=== PATIENT | female | born 1990 | race Caucasian/White ===

== ENCOUNTER → 2016-10-17 | Outpatient (CLI) | payer BC ==
[~2016-10-17] MED LIST: CITA40TA4 PO; FLUO10CA48 PO; IBUP-1050 PO; LAMO1TAB77 PO; LEVOIUD INT UTER; NAPR-1169 PO
== END | disposition home or self-care (01) ==
LOC: C.PAPS 17:41
PROVIDERS: ATTEND Physician Assistant
DX: Z01.411 Encounter for gynecological examination (general) (routine) with abnormal findings (principal); R87.616 Satisfactory cervical smear but lacking transformation zone

== ENCOUNTER → 2017-09-18 | Outpatient (CLI) | payer BC ==
[~2017-09-18] MED LIST changes: +LEVO1IUD2 INT UTER; -LEVOIUD INT UTER
--- NOTE | 2017-09-18 08:35 | DIAGNOSTIC IMAGING REPORT ---
SINGLE CONTRAST UPPER GI SERIES CLINICAL HISTORY: Status post sleeve gastrectomy. COMPARISON STUDY: None. FLUOROSCOPY TIME: 1.6 minutes. TECHNIQUE: A single contrast upper GI series was performed utilizing REES46. 23 fluoroscopic images were obtained. FINDINGS: Esophageal motility was normal. No esophageal mass or stricture was identified although mucosal detail is diminished. There is expected narrowing and irregularity of the stomach status post sleeve gastrectomy. No contrast extravasation is identified to suggest leak. Caliber of the opacified jejunum is normal. IMPRESSION: No contrast extravasation to suggest leak. Expected postoperative findings status post sleeve gastrectomy. Electronically signed by: Jonel Lacey M.D. 09/18/2017 8:33 AM Dictated Date/Time: 09/18/2017 8:31 AM
== END | disposition home or self-care (01) ==
LOC: C.RAD 07:50
PROVIDERS: ATTEND Surgery
DX: K91.1 Postgastric surgery syndromes (principal)

== ENCOUNTER 2017-10-20 19:27 | Emergency (ER) | payer BC ==
[~2017-10-20] VITALS: Ht 172.7 cm; Wt 122.7 kg
[2017-10-20 19:29] VITALS: TEMP 36.9; Ht 172.7 cm; Wt 122.7 kg
[2017-10-20 19:43] VITALS: O2SAT 99
[2017-10-20] MEDS ORDERED: SODIUM CHLORIDE 0.9% 1000ML 1,000 ML IV STA (19:58)
[2017-10-20] MEDS ORDERED: FAMOTIDINE 20MG/5ML IV PUSH IV STA (19:58)
[2017-10-20] MEDS ORDERED: ONDANSETRON INJ 2 MG/ML 2 ML VIAL IV STA (19:58)
[2017-10-20 20:07] LABS: BASO % 0.3 %; BASO ABS # 0.03 K/uL (0-0.2); EOS % 0.7 %; EOS ABS # 0.07 K/uL (0-0.5); HEMATOCRIT 42.2 % (37-47); IG# 0.01 K/uL (0.00-0.02); LYMPH % 38.3 %; LYMPH ABS # 3.75 K/uL (1.2-3.4); MEAN CELL VOLUME 88.5 fL (80-100); MEAN CORPUSCULAR HEMOGLOBIN 29.4 pg (25-34); MEAN CORPUSCULAR HGB CONC 33.2 g/dl (32-36); MONO ABS # 0.59 K/uL (0.11-0.59); NEUT % 54.6 %; NEUT ABS # 5.33 K/uL (1.4-6.5); PLATELET COUNT 291 K/uL (130-400); RED CELL DISTRIBUTION WIDTH CV 15.5 % (11.5-14.5); RED CELL DISTRIBUTION WIDTH SD 50.2 fL (36.4-46.3); WHITE BLOOD COUNT 9.78 K/uL (4.8-10.8)
[2017-10-20 20:17] LABS: ALBUMIN 3.7 gm/dl (3.4-5.0); CALCIUM 9.1 mg/dl (8.5-10.1); CREATININE 0.72 mg/dl (0.60-1.20); POTASSIUM 3.5 mmol/L (3.5-5.1)
[2017-10-20 20:20] LABS: TOTAL PROTEIN 7.6 gm/dl (6.4-8.2)
--- NOTE | 2017-10-20 20:41 | EMERGENCY ROOM VISIT NOTE ---
History Report prepared by Hannah: Edilberto Nicholas Under the Supervision of: Dr. Cas Kinney M.D. First contact with patient: 19:48 Chief Complaint: CHEST PAIN Stated Complaint: ABDOMINAL PAIN,DIZZINESS,CHEST PAIN,TREMORS History of Present Illness The patient is a 27 year old female who presents to the Emergency Room with complaints of intermittent, severe, epigastric burning beginning 2 days ago. She currently rates her symptoms a 5/10 and a 10/10 at its worst. The patient states she had a gastric bypass performed 6 weeks ago, and she has been doing well since she was discharged. She reports she cannot keep anything down because drinking and eating causes her to vomit and her pain to worsen. The patient notes she called her surgeon and was told to come to the ED in [place]. 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 The patient reports she is on omeprazole to help recover. She notes she has not changed her diet since discharge. The patient states she is able to move her bowels. She reports her symptoms stay in her chest/epigastrium and do not radiate to her back. The patient notes she drank a protein drink last night, and she did not vomit. She states she tried to drink the same beverage this morning, and she was not able to keep it down. The patient denies urinary symptoms. Source of History: patient Onset: 2 days ago Position: abdomen (epigastric) Symptom Intensity: severe Quality: burning Timing: intermittent Modifying Factors (Worsening): eating, drinking Associated Symptoms: + vomiting, No back pain, No urinary symptoms Note: Associated symptoms: dripping bile Review of Systems See HPI for pertinent positives & negatives. A total of 10 systems reviewed and were otherwise negative. Past Medical & Surgical Medical Problems: (1) Acute Pharyngitis (2) Back pain (3) Backache Nos (4) Depression (5) Dysuria (6) Gastric ulcer due to nonsteroidal antiinflammatory drug (NSAID) therapy (7) Lumb/Lumbosac Disc Degen (8) Palpitations (9) Shortness Of Breath Family History Diabetes mellitus FH: cancer FH: lung disease Hypertension Social History Smoking Status: Never Smoker Alcohol Use: none Drug Use: none Marital Status: single Housing Status: lives with significant other Occupation Status: employed Current/Historical Medications Scheduled B-Complex W/Biotin & Folic Aci (B50 Complex Tr), 1 TAB PO DAILY Bupropion HCl (Bupropion HCl Sr), 150 MG PO BID Levonorgestrel (Iud) (Mirena), 20 MCG INT UTER UD Omeprazole (Prilosec), 20 MG PO DAILY Pediatric Multiple Vitamin W/ (Flintstones Chewable), 1 TAB PO TID Ranitidine (Zantac), 150 MG PO BID Scheduled PRN Acetaminophen (Tylenol), 500 MG PO UD PRN for Pain or Fever Allergies Coded Allergies: Nickel (Verified Allergy, Unknown, Skin, 10/20/17) Uncoded Allergies: PINEAPPLE (Allergy, Intermediate, Mouth becomes sore and bleeds, hives, ) Physical Exam Vital Signs Date Time Temp Pulse Resp B/P (MAP) Pulse Ox O2 Delivery O2 Flow Rate FiO2 10/20/17 22:20 60 20 128/77 99 10/20/17 21:19 72 16 150/79 100 Room Air 10/20/17 20:38 57 10/20/17 20:31 56 18 117/77 99 Room Air 10/20/17 19:53 62 16 134/84 99 Room Air 10/20/17 19:43 99 Room Air 10/20/17 19:43 99 Room Air 10/20/17 19:29 36.9 94 16 149/107 99 Room Air Physical Exam GENERAL: Patient is in no acute distress. HEENT: No acute trauma, normocephalic atraumatic, mucous membranes moist, no nasal congestion, no scleral icterus. NECK: No stridor, no adenopathy, no meningismus, trachea is midline. LUNGS: Clear to auscultation bilaterally, no wheeze, no rhonchi, breath sounds equal. HEART: Without murmurs gallops or rubs, regular rate and rhythm. ABDOMEN: Soft, tenderness upon palpation to the epigastric region, bowel sounds positive, no hernias, no peritonitis. EXTREMITIES: No cyanosis or edema, full range of motion of all the joints without pain or difficulty, no signs for acute trauma. NEUROLOGIC: Oriented x 3, no acute motor or sensory deficits, no focal weakness. SKIN: No rash, no jaundice, no diaphoresis. Medical Decision & Procedures ER Provider Diagnostic Interpretation: Radiology results as stated below per my review and radiologist interpretation: SINGLE VIEW CHEST CLINICAL HISTORY: Generalized abdominal pain. FINDINGS: An AP, portable, upright chest radiograph is compared to study dated 10/27/2015. The cardiomediastinal silhouette is unremarkable. The lungs and pleural spaces are clear. No pneumothorax is seen. The bony thorax is grossly intact. IMPRESSION: No active disease in the chest. Electronically signed by: Cas Galindo M.D. 10/20/2017 8:48 PM Dictated Date/Time: 10/20/2017 8:[address] SCAN OF THE ABDOMEN AND PELVIS WITH IV CONTRAST CLINICAL HISTORY: Generalized abdominal pain. COMPARISON STUDY: Pelvic radiograph dated 01/11/2012. TECHNIQUE: Following the IV administration of 93 cc of Optiray 320, CT scan of the abdomen and pelvis is performed from the lung bases to the proximal femora. Images are reviewed in the axial, sagittal, and coronal planes. IV contrast was administered without complication. A dose lowering technique was utilized adhering to the principles of ALARA. CT DOSE: 1265.79 mGy.cm FINDINGS: Lung bases: The heart is normal in size and without pericardial effusion. The lung bases are clear. Liver: The contrast-enhanced liver is enlarged, measuring 21 cm in length. The liver demonstrates diminished attenuation consistent with hepatic steatosis. There is mild central intrahepatic biliary ductal dilatation. The hepatic veins and portal veins are patent. Gallbladder: Surgically absent. Spleen: Normal in size and attenuation. Pancreas: Unremarkable. Adrenal glands: Unremarkable. Kidneys: The contrast enhanced kidneys are normal in size and without hydronephrosis. The kidneys enhance symmetrically. Abdominal vasculature: The abdominal aorta is normal in course and caliber. Stomach and bowel: There are postoperative changes consistent with a Emir-en-Y gastric bypass surgery. No bowel obstruction is seen. The appendix is well-visualized and normal. Peritoneum: There is no intraperitoneal free air or abdominal ascites. Lymphadenopathy: None. Pelvic viscera: The bladder, uterus, and adnexa are normal as visualized noting an intrauterine device in place. There are bilateral ovarian follicles. Trace free fluid is noted in the cul-de-sac. Skeletal structures: No lytic or blastic lesions are seen. IMPRESSION: 1. There are no acute infectious or inflammatory findings in the abdomen or pelvis. 2. Hepatomegaly and hepatic steatosis. 3. There are postoperative changes consistent with a Emir-en-Y gastric bypass surgery. No bowel obstruction is seen. 4. Trace free fluid in the cul-de-sac is likely within physiologic limits. Electronically signed by: Cas Galindo M.D. 10/20/2017 9:25 PM Dictated Date/Time: 10/20/2017 9:21 PM Laboratory Results 10/20/17 19:43 Red Blood Count 4.77, Mean Corpuscular Volume 88.5, Mean Corpuscular Hemoglobin 29.4, Mean Corpuscular Hemoglobin Concent 33.2, Mean Platelet Volume 10.0, Neutrophils (%) (Auto) 54.6, Lymphocytes (%) (Auto) 38.3, Monocytes (%) (Auto) 6.0, Eosinophils (%) (Auto) 0.7, Basophils (%) (Auto) 0.3, Neutrophils # (Auto) 5.33, Lymphocytes # (Auto) 3.75, Monocytes # (Auto) 0.59, Eosinophils # (Auto) 0.07, Basophils # (Auto) 0.03 10/20/17 19:43 Test 10/20/17 19:43 10/20/17 19:49 10/20/17 21:21 White Blood Count 9.78 K/uL (4.8-10.8) Red Blood Count 4.77 M/uL (4.2-5.4) Hemoglobin 14.0 g/dL (12.0-16.0) Hematocrit 42.2 % (37-47) Mean Corpuscular Volume 88.5 fL (80-100) Mean Corpuscular Hemoglobin 29.4 pg (25-34) Mean Corpuscular Hemoglobin Concent 33.2 g/dl (32-36) Platelet Count 291 K/uL (130-400) Mean Platelet Volume 10.0 fL (7.4-10.4) Neutrophils (%) (Auto) 54.6 % Lymphocytes (%) (Auto) 38.3 % Monocytes (%) (Auto) 6.0 % Eosinophils (%) (Auto) 0.7 % Basophils (%) (Auto) 0.3 % Neutrophils # (Auto) 5.33 K/uL (1.4-6.5) Lymphocytes # (Auto) 3.75 K/uL (1.2-3.4) Monocytes # (Auto) 0.59 K/uL (0.11-0.59) Eosinophils # (Auto) 0.07 K/uL (0-0.5) Basophils # (Auto) 0.03 K/uL (0-0.2) RDW Standard Deviation 50.2 fL (36.4-46.3) RDW Coefficient of Variation 15.5 % (11.5-14.5) Immature Granulocyte % (Auto) 0.1 % Immature Granulocyte # (Auto) 0.01 K/uL (0.00-0.02) Anion Gap 9.0 mmol/L (3-11) Est Creatinine Clear Calc Drug Dose 159.1 ml/min Estimated GFR () 131.2 Estimated GFR (Non- 113.2 BUN/Creatinine Ratio 17.7 (10-20) Calcium Level 9.1 mg/dl (8.5-10.1) Total Bilirubin 0.3 mg/dl (0.2-1) Aspartate Amino Transf (AST/SGOT) 11 U/L (15-37) Alanine Aminotransferase (ALT/SGPT) 32 U/L (12-78) Alkaline Phosphatase 68 U/L (45-117) Total Protein 7.6 gm/dl (6.4-8.2) Albumin 3.7 gm/dl (3.4-5.0) Globulin 3.9 gm/dl (2.5-4.0) Albumin/Globulin Ratio 0.9 (0.9-2) Lipase 322 U/L (73-393) Human Chorionic Gonadotropin, Qual NEG (NEG) Bedside Troponin I < 0.030 ng/ml (0-0.045) Urine Color DK YELLOW Urine Appearance CLEAR (CLEAR) Urine pH 6.0 (4.5-7.5) Urine Specific [place] > 1.045 (1.000-1.030) Urine Protein NEG (NEG) Urine Glucose (UA) NEG (NEG) Urine Ketones 2+ (NEG) Urine Occult Blood NEG (NEG) Urine Nitrite NEG (NEG) Urine Bilirubin NEG (NEG) Urine Urobilinogen NEG (NEG) Urine Leukocyte Esterase NEG (NEG) Laboratory results reviewed by me. Medications Administered Medications (Trade) Dose Ordered Sig/Soto Route Start Time Stop Time Status Last Admin Dose Admin Ondansetron HCl (Zofran Inj) 4 mg NOW STAT IV 10/20/17 19:58 10/20/17 20:01 DC 10/20/17 20:13 4 MG Sodium Chloride 1,000 ml @ 999 mls/hr Q1H1M STAT IV 10/20/17 19:58 10/20/17 21:03 DC 10/20/17 20:12 999 MLS/HR Famotidine (Pepcid 20mg Iv Push) 20 mg ONE STAT IV 10/20/17 19:58 10/20/17 20:01 DC 10/20/17 20:13 20 MG ECG Per My Interpretation Indication: chest pain Rate (beats per minute): 70 Rhythm: other (possible ectopic atrial rhythm) Findings: other (No PVC, no ST elevation) ED Course 1949: The patient was evaluated in room C07. A complete history and physical exam was performed. 1957: Ordered Famotidine 20mg IV, Sodium Chloride 1000 ml @ 999 mls/hr IV, Ondansetron HCl 4mg IV 2200: I discussed the patient's case with Dr. Morales, Surgeon covering for Dr. Mooney. He suggests the patient's symptoms are likely related to her need to increase her proton pump inhibitor. He recommended giving the patient Zantac. 2208: Reevaluated the patient. Discussed results and discharge instructions: she verbalized understanding and agreement. The patient is ready for discharge. Medical Decision The patient is a 27 year old female who presents to the ED with complaints of severe, intermittent, epigastric burning. Differential diagnoses considered include bowel obstruction, hematoma, gastritis, abscess, infection, electrolyte imbalance, anemia, UTI, pneumonia, pancreatitis. There is no leukocytosis or concerning anemia. No significant electrolyte abnormality, kidney failure or hepatitis. No evidence for pancreatitis. testing is negative. Chest film does not show free air, pneumonia or pneumothorax. Urinalysis shows some evidence for dehydration, no infection. Abdominal and pelvis CT shows evidence for the gastric bypass procedure, no bowel obstruction, no evidence for free air. EKG shows a possible ectopic atrial rhythm, no acute ischemia. Cardiac enzyme testing 1 is not consistent with acute cardiac injury. The patient received IV Zofran, IV Pepcid and IV saline, she is feeling improved , she is resting comfortably. I did speak with the physician on-call for the patient's surgeon at [facility], he recommended doubling up on her Prilosec and may be adding some Zantac or Carafate. The patient is to follow with them in the office and by phone. If she is worsening, she can return to this ER for reassessment. She was felt stable for discharge home. Medication Reconcilliation Current Medication List: was personally reviewed by me Blood Pressure Screening Patient's blood pressure: Normal blood pressure Blood pressure disposition: Did not require urgent referral Consults Time Called: 2151 Consulting Physician: Dr. Morales, Surgeon covering for Dr. Mooney Returned Call: 2200 I discussed the patient's case with Dr. Morales, Surgeon covering for Dr. Mooney. He suggests the patient's symptoms are likely related to her need to increase her proton pump inhibitor. He recommended giving the patient Zantac. Impression Primary Impression: Epigastric abdominal pain Additional Impression: Status post gastric bypass for obesity Scribe Attestation The scribe's documentation has been prepared under my direction and personally reviewed by me in its entirety. I confirm that the note above accurately reflects all work, treatment, procedures, and medical decision making performed by me. Departure Information Dispostion Home / Self-Care Prescriptions Ranitidine (Zantac) 150 Mg Tab 150 MG PO BID for 14 Days, #28 TAB 3 Refills Prov: Cas Kinney M.D. 10/20/17 Referrals Marifer Morrison MD (PCP) Forms HOME CARE DOCUMENTATION FORM, IMPORTANT VISIT INFORMATION Patient Instructions My [facility] Additional Instructions increase prilosec to 2x per day add zantac 2x per day for 2 weeks tylenol for pain follow with your doctors in [place] return for worsening symptoms, vomiting or fever lab testing and imaging today was all ok Problem Qualifiers
[2017-10-20] MEDS ORDERED: OPTIRAY 320 IV PRN (20:45)
--- NOTE | 2017-10-20 20:50 | DIAGNOSTIC IMAGING REPORT ---
SINGLE VIEW CHEST CLINICAL HISTORY: Generalized abdominal pain. FINDINGS: An AP, portable, upright chest radiograph is compared to study dated 10/27/2015. The cardiomediastinal silhouette is unremarkable. The lungs and pleural spaces are clear. No pneumothorax is seen. The bony thorax is grossly intact. IMPRESSION: No active disease in the chest. Electronically signed by: Cas Galindo M.D. 10/20/2017 8:48 PM Dictated Date/Time: 10/20/2017 8:48 PM
--- NOTE | 2017-10-20 21:27 | DIAGNOSTIC IMAGING REPORT ---
CT SCAN OF THE ABDOMEN AND PELVIS WITH IV CONTRAST CLINICAL HISTORY: Generalized abdominal pain. COMPARISON STUDY: Pelvic radiograph dated 01/11/2012. TECHNIQUE: Following the IV administration of 93 cc of Optiray 320, CT scan of the abdomen and pelvis is performed from the lung bases to the proximal femora. Images are reviewed in the axial, sagittal, and coronal planes. IV contrast was administered without complication. A dose lowering technique was utilized adhering to the principles of ALARA. CT DOSE: 1265.79 mGy.cm FINDINGS: Lung bases: The heart is normal in size and without pericardial effusion. The lung bases are clear. Liver: The contrast-enhanced liver is enlarged, measuring 21 cm in length. The liver demonstrates diminished attenuation consistent with hepatic steatosis. There is mild central intrahepatic biliary ductal dilatation. The hepatic veins and portal veins are patent. Gallbladder: Surgically absent. Spleen: Normal in size and attenuation. Pancreas: Unremarkable. Adrenal glands: Unremarkable. Kidneys: The contrast enhanced kidneys are normal in size and without hydronephrosis. The kidneys enhance symmetrically. Abdominal vasculature: The abdominal aorta is normal in course and caliber. Stomach and bowel: There are postoperative changes consistent with a Emir-en-Y gastric bypass surgery. No bowel obstruction is seen. The appendix is well-visualized and normal. Peritoneum: There is no intraperitoneal free air or abdominal ascites. Lymphadenopathy: None. Pelvic viscera: The bladder, uterus, and adnexa are normal as visualized noting an intrauterine device in place. There are bilateral ovarian follicles. Trace free fluid is noted in the cul-de-sac. Skeletal structures: No lytic or blastic lesions are seen. IMPRESSION: 1. There are no acute infectious or inflammatory findings in the abdomen or pelvis. 2. Hepatomegaly and hepatic steatosis. 3. There are postoperative changes consistent with a Emir-en-Y gastric bypass surgery. No bowel obstruction is seen. 4. Trace free fluid in the cul-de-sac is likely within physiologic limits. Electronically signed by: Cas Galindo M.D. 10/20/2017 9:25 PM Dictated Date/Time: 10/20/2017 9:21 PM
[2017-10-20] MEDS ORDERED: OMEP20CA9 PO (21:56)
[2017-10-20] MEDS ORDERED: WLLSR150 PO (21:56)
[2017-10-20] MEDS ORDERED: ACET-1256 PO (21:59)
[2017-10-20] MEDS ORDERED: PEDICHW50 PO (21:59)
[2017-10-20] MEDS ORDERED: B CO PO (21:59)
[2017-10-20] MEDS ORDERED: RANI150T85 PO (22:13)
[2017-10-20 22:20] VITALS: BP 128/77; PULSE 60; O2SAT 99
== END 2017-10-20 22:21 | disposition home or self-care (01) ==
LOC: C.EDB 19:28 → C.EDC 22:21
DX: R10.13 Epigastric pain (principal); Z95.1 Presence of aortocoronary bypass graft; Z98.890 Other specified postprocedural states; F32.9 Major depressive disorder, single episode, unspecified; Z83.3 Family history of diabetes mellitus; Z80.9 Family history of malignant neoplasm, unspecified; Z82.49 Family history of ischemic heart disease and other diseases of the circulatory system; Z79.899 Other long term (current) drug therapy; Z91.018 Allergy to other foods; Z91.048 Other nonmedicinal substance allergy status

== ENCOUNTER 2019-04-22 05:51 | Observation (INO) ==
--- NOTE | 2019-04-18 14:00 | Anesthesiology Consultation ---
Date of Service April 18, 2019 Assessment & Plan (1) Encounter for pre-operative examination: Chart Review Chart Review: Acceptable Risk for Surgery and Patient NOT seen in Pre Admission Testing Consults Requested none History Surgery Operation Date: 04/22/19 07:30 Proposed Procedures p Panniculectomy, - Dana Castillo MD s [id number] Abdominoplasty - Dana Castillo MD Height/Weight Height: 5 ft 8 in Weight: 72.575 kg Allergies Allergy/AdvReac Type Severity Reaction Status Date / Time nickel Allergy Mild Skin Verified 04/18/19 11:30 IRRITATION PINEAPPLE Allergy Intermediate Mouth Uncoded 04/18/19 11:30 becomes sore and bleeds, hives Medications Home Medications Medication Instructions Recorded Confirmed Last Taken bupropion HCl 200 mg PO BID 04/22/18 04/18/19 10/17/18 levonorgestrel 20 mcg/24 hours (5 1 device IU UD ea 02/04/19 04/18/19 Unknown yrs) 52 mg intrauterine device lorazepam 1 mg tablet 1 mg PO DAILY PRN tab 02/19/19 04/18/19 Unknown Vitamin A 1 cap PO DAILY 04/18/19 04/18/19 Unknown Vitamin K Tripple Play 1 cap PO DAILY 04/18/19 04/18/19 Unknown calcium carbonate-vitamin D3 2 tab PO QID 04/18/19 04/18/19 Unknown [Calcium 600 + D(3)] desvenlafaxine succinate [Pristiq] 100 mg PO QAM 04/18/19 04/18/19 Unknown ergocalciferol (vitamin D2) 50,000 unit PO DAILY 04/18/19 04/18/19 Unknown [Vitamin D2] hydroxyzine HCl 25 mg PO HS PRN 04/18/19 04/18/19 Unknown lamotrigine [Lamictal] 100 mg PO QAM 04/18/19 04/18/19 Unknown magnesium 200 mg PO QID 04/18/19 04/18/19 Unknown multivitamin 1 tab PO TID 04/18/19 04/18/19 Unknown vitamin E 400 unit PO DAILY 04/18/19 04/18/19 Unknown Past Medical History Medical History Anxiety and depression Bipolar disorder Degenerative disc disease History of hypertension Past Family History Family History Uncle Brain cancer Father Colon cancer Mother Other cervical disc degeneration, cervicothoracic region Diabetes Gout Arthritis Uterine cancer Grandfather (Paternal) Gout Bipolar disorder Migraine Lung cancer Sister Migraine Past Surgical History Surgical History H/O elbow surgery LEFT ARM History of cholecystectomy S/P biliopancreatic diversion with duodenal switch [place] teeth removed Social History Smoking Status: Never smoker Do You Dip or Chew Tobacco: No Hx Alcohol Use: No Hx Substance Use: No substance use type: does not use Testing Electrocardiogram Date: 10/17/18 Findings: + NSR @ (77) Normal sinus rhythm Normal ECG When compared with ECG of 20-OCT-2017 19:37, Sinus rhythm has replaced Ectopic atrial rhythm Nonspecific T wave abnormality no longer evident in Inferior leads Confirmed by Miguel A Leyva ([id number]) on 10/17/2018 2:35:59 PM Chest X-Ray Date: 11/17/18 XR chest 1V portable CLINICAL HISTORY: palpitations cardiac arrhythmia COMPARISON STUDY: 10/20/2017 FINDINGS: The bones soft tissues and hemidiaphragms are normal. The cardiom ediastinal silhouette is normal. The lungs are clear. The pulmonary vasculature is normal. IMPRESSION: Negative chest.
[2019-04-22] MEDS ORDERED: LR 15ML/HR IV SCH (06:00)
[2019-04-22] MEDS ORDERED: CEFAZOLIN 2000MG 2,000 MG/15 ML SYR IV SCH (06:00)
[2019-04-22] MEDS ORDERED: MIDAZOLAM HCL 1 MG/ML 2ML VIAL ONE (06:43)
[2019-04-22] MEDS ORDERED: fentaNYL citrate 100 MCG/2 ML VIAL ONE ×3 (06:43→12:55)
[2019-04-22] MEDS ORDERED: ATROPINE SULFATE 0.1 MG/ML 10ML SYR IV PRN (06:44)
[2019-04-22] MEDS ORDERED: ePHEDrine sulfate 50 MG/ML AMP IV PRN (06:44)
[2019-04-22] MEDS ORDERED: ONDANSETRON INJ 2 MG/ML 2 ML VIAL IV PRN ×2 (06:44→12:40)
--- NOTE | 2019-04-22 07:01 | History & Physical Bridge Note ---
Date of Service April 22, 2019 History & Physical Bridge Note I have examined the patient, reviewed the History & Physical and in the interval since the performance of the History & Physical I have noted the following changes of clinical significance: no changes noted
[2019-04-22] MEDS ORDERED: LIDOCAINE HCL 1% 20 ML VIAL ONE (07:14)
[2019-04-22] MEDS ORDERED: EPINEPHrine INJ 1 MG/ML AMP ONE (07:14)
[2019-04-22] MEDS ORDERED: LIDOCAINE/EPINEPHRINE 1% 20 ML VIAL ONE (07:15)
[2019-04-22] MEDS ORDERED: BUPIVACAINE 0.25% 30 ML VIAL ONE (07:15)
[2019-04-22] MEDS ORDERED: LIDOCAINE HCL 2% 2 ML VIAL/AMP(20MG/ML) INFIL ONE (08:26)
[2019-04-22] MEDS ORDERED: HYDROmorphone INJ 2 MG/ML SYR/VIAL ONE (08:26)
[2019-04-22] MEDS ORDERED: ROCURONIUM BROMIDE 10 MG/ML 5 ML VIAL ONE (08:26)
[2019-04-22] MEDS ORDERED: ONDANSETRON INJ 2 MG/ML 2 ML VIAL ONE ×2 (08:26→09:54)
[2019-04-22] MEDS ORDERED: PROPOFOL IV EMULSION 10 MG/ML 20 ML VIAL IV ONE (08:26)
[2019-04-22] MEDS ORDERED: ACETAMINOPHEN 1000 MG/100 ML IV IV ONE (10:15)
[2019-04-22] MEDS ORDERED: CEFAZOLIN 250 MG/ML 1 GM VIAL ONE (11:12)
--- NOTE | 2019-04-22 12:27 | Post Operative Brief Note ---
Immediate Post Op Note v1 Date of Surgery April 22, 2019 Pre & Post Diagnosis Operation Date: 04/22/19 07:30 Pre-Op Diagnosis: Abdominal Pannus, Encounter for Cosmetic Surgery Post-Op Diagnosis: Abdominal Pannus, Encounter for Cosmetic Surgery Procedure Operation Date: 04/22/19 07:30 Actual Procedures [id number] Abdominoplasty(Not Applicable) - Dana Castillo MD Surgeon Dana Castillo MD Station Cashier Maggy Hansen PA-C Estimated Blood Loss 75 Findings Consistent with Post-Op Diagnosis Specimens abdominal pannus Drains Alvarez Catheter (16fr alvarez catheter placed by Samanta Norris RN, without difficulty; alvarez demonstrates clear yellow urine. Output measured and recorded by anesthesia.) and Lukasz-Thapa Drain (15fr round, x2) Anesthesia Type General Complications none
[2019-04-22] MEDS ORDERED: PROMETHAZINE HCL INJ 25 MG/ML 1 ML VIAL ONE (12:37)
[2019-04-22] MEDS ORDERED: ACETAMINOPHEN 325 MG TAB PO PRN (12:40)
[2019-04-22] MEDS ORDERED: OXYCODONE/ACETAMINOPHEN 5mg/325mg TAB PO PRN (12:40)
[2019-04-22] MEDS ORDERED: DiphenhydrAMINE HCL 50 MG/ML VIAL IV PRN (12:40)
[2019-04-22] MEDS ORDERED: MoRPHine SULFATE 4 MG/ML 1 ML CARP\\VIAL IV PRN ×2 (12:40)
[2019-04-22] MEDS ORDERED: LORazepam 0.5 MG TAB PO PRN (12:40)
[2019-04-22] MEDS ORDERED: MoRPHine SULFATE 2 MG/ML CARP IV PRN (12:40)
[2019-04-22] MEDS ORDERED: PROMETHAZINE HCL 12.5 MG in SODIUM CHLORIDE 0.9% 50 ML IV PRN (12:40)
[2019-04-22] MEDS ORDERED: METOCLOPRAMIDE HCL INJ 5 MG/ML 2 ML VIAL ONE (12:55)
[2019-04-22] MEDS: fentaNYL citrate 100 MCG/2 ML VIAL IV PRN ×2 (12:57→13:02)
--- NOTE | 2019-04-22 13:00 | Operative Report ---
PG Post Operative Report Pre & Post Diagnosis Operation Date: 04/22/19 07:30 Pre-Op Diagnosis: Abdominal Pannus, Encounter for Cosmetic Surgery Post-Op Diagnosis: Abdominal Pannus, Encounter for Cosmetic Surgery Procedure Operation Date: 04/22/19 07:30 Actual Procedures Jswea-[id number] Abdominoplasty(Not Applicable) - Dana Castillo MD Surgeon Dana Castillo MD Photo Technologist Maggy Hansen PA-C Estimated Blood Loss 75 Findings Consistent with Post-Op Diagnosis Specimens abdominal pannus Drains EMMANUEL x2 Anesthesia Type General Complications none Disposition Disposition: Recovery Room Indications 28 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 She was identified and marked in the preoperative holding area. She was brought to the operating room where she was positioned supine and placed under general anesthesia without incident. Harding catheter was placed. Surgical site was prepped and draped sterilely. A time- out procedure was performed. I reassessed my markings which included a lower horizontal abdominal incision with the midportion 6.5 cm above the vulvar commissure, and a vertical component cephalad to the xiphoid. Incision was marked bilaterally to the ASIS. I began by injecting 1% lidocaine with epinephrine along the planned incision. The lower abdominal incision was made using a 15-blade scalpel to incise epidermis and superficial dermis followed by electrocautery to incise deep dermis, subcutaneous fat, Fernanda's fascia down to the abdominal wall. Care was taken to bevel superiorly in order to avoid encountering the inguinal region. Electrocautery was used to elevate the anterior abdominal skin flap ligating the perforating vessels with 3-0 Vicryl ties and electrocautery. Dissection was carried up to the level of the umbi licus in the midline. At this point, a 15-blade scalpel was used to circumscribe the umbilicus. A vertical midline incision was then made from the incision to the umbilicus and divided in the midline using electrocautery. The umbilicus was then dissected out using electrocautery down to abdominal wall. The umbilical stalk appeared viable throughout the procedure. At this point, the cosmetic portion of the procedure was begun, making a midline abdominal incision. From the umbilicus to the xiphoid process. Dissection was carried down to the abdominal wall fascia using electrocautery. At this point, tailor tacking was performed by imbricating at the abdominal skin using silk suture. This allowed me to evaluate my maximal margin of resection. Ruano were applied, sutures were released, and a 15 blade scalpel was used to make the incisions. Widest portion of the incision was at the level of the umbilicus, and it tapered inferiorly to allow better definition of the waistline. Incisions were deepened using electrocautery. Incision was carried down to meet the abdominal pannus. At this point, the bed was flexed, a 3 point fixation 2-0 Vicryl suture was placed in the midline of the mons pubis. A few 2-0 Vicryl Fernanda's fascia sutures were placed in the vertical incision. We then returned to the insurance portion of the procedure, i.e. panniculectomy. Skin flaps were marked for excision. A 15-blade scalpel was used to make these incisions and the incision was deepened through dermis, subcutaneous fat, Fernanda's fat using electrocautery. Subscarpal fat was resected directly. Some fat was resected from the mons pubis due to excessive bulk. A 15 Arabic Vazquez drains were placed in the wound bed and brought out through a separate stab incision in the mons pubis and passed into the upper abdominal wound. The drains were sutured into place using 3-0 nylon. This was performed using a 15-blade scalpel. Wound closure was then begun lateral to medial using 2-0 Vicryl Fernanda's fascia sutures, 2-0 Vicryl deep dermal sutures, 2-0 PDO running superficial Quill suture, 3-0 Monocryl running subcuticular suture. Remainder of the cosmetic portion of the procedure was then completed, using 2-0 Vicryl Fernanda's fascia sutures, 2-0 Vicryl deep dermal sutures, 2-0 PDO running Quill suture to approximate the superior portion of the umbilicus, 3-0 PDS interrupted dermal sutures to approximate the infraumbilical portion, 3-0 Monocryl running subarticular suture. Umbilicus was brought out through the midline incision and was sutured into place using 4-0 chromic half buried horizontal mattress sutures. The umbilicus was dressed using Xeroform and the incisions were dressed using Dermabond Prineo followed by dry dressings and an abdominal binder. Prior to closure, a total of 10 mL of 0.25% Marcaine plain were injected into the fascia as well as along the incisions. The procedure was tolerated well. The patient was awakened and transferred to recovery in sati sfactory condition. Maggy Hansen PA-C was present and scrubbed throughout the entire procedure and was instrumental in providing retraction of the pannus and assisting in simultaneous wound closure. Insurance billable vs self pay times recorded by nursing staff and anesthesia; total nonbillable (cosmetic time 1 hour 46 minutes). I attest to the content of the Intraoperative Record and any orders documented therein. Any exceptions are noted below.
[2019-04-22] MEDS ORDERED: METOCLOPRAMIDE HCL INJ 5 MG/ML 2 ML VIAL IV PRN (13:01)
--- NOTE | 2019-04-22 13:21 | Anesthesiology Progress Note ---
Date of Service April 22, 2019 Anesthesia Post Procedure Vital Signs Vital Signs: Temp Pulse Pulse Resp BP BP Pulse Ox 04/22/19 13:10 63 19 146/99 H 100 04/22/19 13:00 56 L 14 152/97 H 100 04/22/19 12:50 66 27 H 180/106 H 100 04/22/19 12:42 97.5 F L 81 14 166/110 H 100 04/22/19 06:21 98.8 F 67 14 127/77 100 Pain Intensity Abdomen: Pain Intensity: 5 Transfer of Care Handoff Completed per policy Notes Mental Status: alert / awake / arousable and participated in evaluation Patient Amnestic to Procedure: Yes Nausea / Vomiting: adequately controlled Pain: adequately controlled Airway Patency, RR, SpO2: stable & adequate BP & HR: stable & adequate Hydration State: stable & adequate Anesthetic Complications: no major complications apparent and Pt Satisfied with anesthetic care
[2019-04-22] MEDS ORDERED: NON-FORMULARY MEDICATION (Levonorgestrel [Mirena] 1 EA) IU SCH (13:52)
[2019-04-22] MEDS: D5W AND 1/2NSS + 20MEQ KCL 20 MEQ/1,000 ML BAG IV SCH (15:13)
[2019-04-22] MEDS: BuPROPion SR 100 MG TABCR PO SCH (16:45)
[2019-04-22] MEDS: OXYCODONE/ACETAMINOPHEN 5mg/325mg TAB PO PRN (20:01)
[2019-04-22] MEDS: CEFAZOLIN 2000MG 2,000 MG/15 ML SYR IV SCH (20:49)
[2019-04-23] MEDS: OXYCODONE/ACETAMINOPHEN 5mg/325mg TAB PO PRN ×3 (02:11→10:35)
[2019-04-23] MEDS: D5W AND 1/2NSS + 20MEQ KCL 20 MEQ/1,000 ML BAG IV SCH (02:12)
[2019-04-23] MEDS: CEFAZOLIN 2000MG 2,000 MG/15 ML SYR IV SCH (04:46)
[2019-04-23] MEDS: BuPROPion SR 100 MG TABCR PO SCH (07:57)
[2019-04-23] MEDS ORDERED: lamoTRIgine 100 MG TAB PO SCH (09:00)
[2019-04-23] MEDS ORDERED: MULTIVITAMIN TAB PO SCH (09:00)
[2019-04-23] MEDS ORDERED: ENOXAPARIN INJ 40 MG/0.4 ML SYR SQ SCH (09:00)
--- NOTE | 2019-04-23 09:23 | Surgery Progress Note ---
Date of Service April 23, 2019 Assessment & Plan (1) S/P abdominoplasty: POD #1 s/p Ejkbe-ux-ucd Abdominoplasty Patient see and examined with Dr. Castillo. Patient is doing well, pain is controlled with PO pain medication. Patient is tolerating regular diet. We were able to get her up and out of bed and she was able to ambulate around her room without issue. Pt's abdominal binder that she purchased online was placed today. Pt is aware that EMMANUEL drains will remain in place at discharge. She was instructed that she is to record the date, time, and drainage amount prior to emptying each drain. Pt was reminded that she is not allowed to shower and is to keep dressings dry. She is to follow-up in our office in 2 days. Our office number is on her discharge instructions and she is to call with any questions or concerns. Patient ok for discharge to home today. Supervising Physician Co-Signing Physician Notes I personally saw and examined this patient and agree with the assessment and plan. Follow up in the office on . Subjective Carlos Alberto is resting comfortably in bed as Dr. Castillo and I entered the room, she does state that she does have some pain. Her catheter was removed at 6AM without issue. Patient has not been out of bed yet. She states that she has been tolerating a regular diet and denies nausea. Physical Exam Physical Exam: On physical exam, surgical abdominal binder in place, surgical dressings held in place with tape- dressings are clean, dry. EMMANUEL drains x [address] with bloody-serosang drainage. Patient's abdominal binder that she purchased online for surgery was placed by Dr. Castillo and myself. Drains in place. Patient reminded while putting on abdominal binder that she is to keep this binder on day and night. She was also reminded to keep surgical dressings dry and in place. Results & Data Vital Signs (Past 12 Hours) Vital Signs Temp Pulse Resp BP Pulse Ox 04/23/19 07:21 37.2 C 99 H 18 106/67 99 04/23/19 03:17 37.0 C 69 16 105/68 98 04/22/19 23:39 36.9 C 68 16 101/60 97 PG Care Time/CCT Total # of Minutes Spent Total Time Spent with Patient: Total time spent is greater than 50% in coordination of care (as documented) at patient's floor/unit and/or counseling patient:
--- NOTE | 2019-04-24 13:06 | Discharge Summary ---
Date of Service April 24, 2019 Admission HPI Per Admitting Provider see admission H & P Admission Exam Per Admitting Provider see admission H & P Principal Diagnosis Abdominal Pannus, Encounter for Cosmetic Surgery Discharge Exam On physical exam- surgical dressings intact. They are clean, dry. Incisions are clean, dry, intact. Patient's binder (one that purchased and brought from home) was placed. EMMANUEL drains x [address] with bloody-serosang drainage. Discharge Data Allergies Allergy/AdvReac Type Severity Reaction Status Date / Time nickel Allergy Mild Skin Verified 04/22/19 06:16 IRRITATION pineapple Allergy Verified 04/22/19 14:54 PINEAPPLE Allergy Intermediate Mouth Uncoded 04/22/19 06:16 becomes sore and bleeds, hives Procedures Performed Operation Date: 04/22/19 07:30 Actual Procedures s Panniculectomy,(Not Applicable) - Dana Castillo MD p Idrrw-vy-ywz Abdominoplasty(Not Applicable) - Dana Castillo MD Hospital Course (1) S/P abdominoplasty: Patient presented to 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 She was taken to OR and underwent Izqgc-fd-[id number] Abdominoplasty (alvarez catheter and 2 drains were placed intraoperatively). There were no intraoperative complications. She was taken to recovery and transferred to med/surg for observation. On POD #1 she was a bit sore, but overall doing very well. Alvarez cather removed without issue and patient was able to void on own. She was tolerating a regular diet and We were able to get her up and out of bed and she was able to ambulate around her room without issue. Pt's abdominal binder that she purchased online was placed today. EMMANUEL drains remained at discharge. She was instructed that she is to record the date, time, and drainage amount prior to emptying each drain. Pt was reminded that she is not allowed to shower and is to keep dressings dry. She is to follow-up in our office in 2 days. Our office number is on her discharge instructions and she is to call with any questions or concerns. Total Time Total Time Spent Total Time Spent (In Minutes): 10 Discharge Plan Discharge Items Patient Disposition: Home - Self-Care Reason For Visit: Abdominal Pannus, Encounter for Cosmetic Surgery Discharge Diagnosis: Abdominal Pannus, Encounter for Cosmetic Surgery Activity: As commented below Non-emergency contact: Surgeon Call non-emergency contact if: you have any medication questions, your pain is not controlled, your temperature is above 101.5, your wound has increased redness and your wound has increased drainage Follow-up/Referrals: Marifer Morrison MD [Primary Care Provider] - Diet: Regular Addtl Attending Provider Instructions: ACTIVITY RECOMMENDATIONS: __Normal activities _X_No bending, lifting or straining __No driving _X_Driving allowed when you are off pain medications _X_Walking permitted __You should have help at home for ___ days DRESSINGS: __No dressings required _X_Keep dressings dry/in place until first office visit __Remove dressings ___ and leave dressings off __Apply ice ___ days __Remove dressings and reapply garment __Apply antibiotic ointment (Bacitracin, Neosporin, etc) to wounds 3-4 times/day for 10 days BATHING: _X_Keep dressings dry _X_Sponge bathing permitted- Please keep water away from surgical dressings and drains. __Showering permitted _X_No swimming, hot tubs or soaking in a tub MEDICATIONS: Resume previous medications unless instructed otherwise by your surgeon. _X_Do not use aspirin, Motrin, Advil or Ibuprofen as these may promote bleeding. Please use Tylenol. _X_Prescription(s) provided: You were given a prescription for pain medication at your last office visit. Please use as prescribed. Please call our office with any questions or concerns. OTHER INSTRUCTIONS: _X_Record drain output 2-3 times per day SPECIAL CARE INSTRUCTIONS: * It is normal to have a mild fever after surgery. If your temperature is higher than 101.5 degrees F, please call the office at [phone]. * Constipation is a typical side effect of pain medication. An [id number] stool softener will help relieve this. * Leaking around surgical drains may occur and should not cause concern. Sometimes these drains become clogged. If this happens, remove the bulb and milk the clot out of the tube, then replace the bulb. * Drainage from wounds after liposuction is normal and should be expected. Garments will become soiled. You should protect furniture and bedding. This drainage should mostly subside within 2-3 days. Leave garments in place unless instructed to remove them. * If you have unusual drainage from a wound or are concerned you have an infection or have any questions or concerns, please call the office at [phone]. FOLLOW UP VISIT: If not already scheduled, please call the office, , when you return home after surgery to schedule an appointment to be seen in __2_ days. Pending Studies at Discharge: No Stand-Alone Forms: My [facility] Medications and DC Order Prescriptions: Continued lorazepam 1 mg tablet 1 mg PO DAILY PRN (Reason: Anxiety) RF: 0 Mirena 20 mcg/24 hours (5 yrs) 52 mg intrauterine device 1 device IU UD RF: 0 lamotrigine [Lamictal] 100 mg Tablet 100 mg PO QAM RF: 0 desvenlafaxine succinate [Pristiq] 100 mg Tablet Extended Release 24 Hr 100 mg PO QAM RF: 0 multivitamin Tablet 1 tab PO TID RF: 0 calcium carbonate-vitamin D3 [Calcium 600 + D(3)] 600 mg(1,500mg) -200 unit Tablet 2 tab PO QID RF: 0 hydroxyzine HCl 25 mg Tablet 25 mg PO HS PRN (Reason: Sleep) RF: 0 ergocalciferol (vitamin D2) [Vitamin D2] 50,000 unit Capsule 50,000 unit PO DAILY RF: 0 vitamin E 400 unit Capsule 400 unit PO DAILY RF: 0 magnesium 200 mg Tablet 200 mg PO QID RF: 0 Vitamin A 1 cap PO DAILY RF: 0 Vitamin K Tripple Play 1 cap PO DAILY RF: 0 bupropion HCl 200 mg tablet sustained-release 12 hr 200 mg PO BID RF: 0 Discharge Orders: Discharge Order (Routine); Ordered 04/23/19 Ordered By: Maggy Hansen Admission Data Admit Date/Time: 04/22/19 12:43 Attending Provider: Dana Castillo Admit Provider: Dana Castillo Primary Care Provider: Marifer Morrison Other Interventions: Discharge Summary Assessment (RN) Last Done: 04/23/19 10:06 DC Date/Time DO NOT enter until pt leaves facility: 04/23/19 10:53
== END 2019-04-23 10:53 | disposition home or self-care (01) ==
LOC: ASU 05:51 → 3W 05:51

== ENCOUNTER 2024-10-26 11:29 | Inpatient (IN) ==
--- OUTSIDE RECORDS SUMMARY | 2024-10-26 11:34 | External Medical Summary | Summary of Care ---
Author Name Unknown Organization [facility] Address [address] [place] [address] Phone [phone] Care Team Providers Care Storage Facility Housekeeper Name Role Phone Marifer Morrison MD Primary Care Provider Encounter Details Date Type Department Care Team (Late st Contact Info) Description 08/15/2024 Population Health External Data Unspecified Department Allergies Active Allergy Reactions Criticality Noted Date Comments Nickel Rash 12/15/2015 Pineapple Other (Please comment) 12/15/2015 Mouth bleeding documented as of this encounter (statuses as of 08/15/2024) Medications levonorgestrel (MIRENA) 20 MCG/24HR IUD Insert 1 Each into uterus once. Active Multiple Vitamins-Minera ls (CENTRUM ADULTS) TABS Take by mouth. Active Cyanocobalamin (B-12) [address] 12,000 mcg under the tongue. Active vitamin e (E-400) 400 UNIT Capsule Take 400 Units by mouth daily. Active Ergocalciferol (DRISDOL) 56262 units Capsule Take 50,000 Units by mouth once a week. Active Vitamin A 8000 units TABS Take by mouth. Active Menaquinone-7 (VITAMIN K2) 100 MCG CAPS Take by mouth once for 1 dose. 11/08/2017 Active LORazepam (ATIVAN) 1 MG Tablet 1/2 OR 1 TABLET AT BEDTIME NEEDED FOR SLEEP AND ANXIETY. 1 02/07/2018 Active Calcium Citrate-Vitamin D (CALCIUM CITRATE + D3 MAXIMUM) 315-250 MG-UNIT TABS Take by mouth. 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 10/11/2017 Morbid obesity 02/14/2017 Family history of diabetes mellitus (DM) 017 Gastroesophageal reflux disease 02/14/2017 Chronic low back pain without sciatica 7 Low back pain GERD (gastroesophageal reflux disease) documented as of this encounter (statuses as of 08/15/2024) Resolved Problems Problem Noted Date Diagnosed Date Resolved Date Deep vein thrombosis (DVT) p rophylaxis prescribed at discharge 08/23/2017 06/23/2021 Pre-diabetes 02/14/2017 07/08/2021 documented as of this encounter (statuses as of 08/15/2024) Social History Tobacco Use Types Packs/Day Years Used Date Smoking Tobacco: Never Smokeless Tobacco: Never Alcohol Use Standard Drinks/Week Comments No 0 (1 standard drink = 0.6 oz pur e alcohol) Utilities Answer Date Recorded Do you have trouble paying y our heating, water, or electric bill? (Adult - for ages 18 years and over) Not on file 01/09/2024 Is your family able to pay t he heat, water, or electric bill? (Household - for ages 0-17 years) Not on file 01/09/2024 Does your family have access to good internet? (Household - for ages 0-17 years) Not on file 01/09/2024 Social Connections Answer Date Recorded How often do you feel lonely or isolated from those around you? (Adult - for ages 18 years and over) Not on file 01/09/2024 Comments No Sex and Gender Information Value Date Recorded Sex Assigned at Not on file Legal Sex Female 5:43 AM EST Gender Identity Not on file Sexual Orientation Not on file documented as of this encounter Functional Status * Are you deaf or do you have serious difficulty hearing? Answer Date of Assessment Author No 09/08/2017 3:18 AM EST Niels Singh, RN * Are you blind or do you have serious difficulty seeing, even when wearing glasses? Answer Date of Assessment Author No 09/08/2017 3:18 AM Niels Carlin RN * Do you have serious difficulty walking or climbing stairs? (5 years old or older) Answer Date of Assessment Author No 09/08/2017 3:18 AM Niels Carlin RN * Do you have difficulty dressing or bathing? (5 years old or older) Answer Date of Assessment Author No 09/08/2017 3:18 AM Niels Carlin RN * Because of a physical, mental, or emotional condition, do you have difficulty doing errands alone such as visiting a doctor’s office or shopping? (15 years old or older) Answer Date of Assessment Author No 09/08/2017 3:18 AM Niels Carlin RN documented as of this encounter Mental Status * Because of a physical, mental, or emotional condition, do you have serious difficulty concentrating, remembering, or making decisions? (5 years old or older) Answer Entry Date Author No 09/08/2017 3:18 AM Niels Carlin RN documented in this encounter Plan of Treatment Health Maintenance Due Date Last Done Comments Depression Screening 2000 HIV Screening 10/16/2003 Hepatitis C Screening 2006 DTap/Tdap Vaccines (1 - Tdap) 10/16/2007 Hepatitis B Vaccine (1 of 3 - 19+ 3-dose series) 10/16/2007 Pap Smear 2009 Cervical Cancer Screening 2018 HPV/Co-Test 2018 COVID-19 Vaccine ( season) 2024 Influenza Vaccine (FLU shot) (#1) 2024 Diabetes Screening 09/03/2024 09/03/2021, 0 09/03/2021, 05/11/2020, Additional history exists HPV (Gardasil) Vaccine Aged Out No lo nger eligible based on patient's age to complete this topic MENINGOCOCCAL (MENACTRA/MENVEO) Aged Out No longer eligible based on patient's age to complete this topic Pneumococcal Vaccine: Pediatrics (0 to 5 Years) and At-Risk Patients (6 to 18 Years and 19+ Years) Aged Out No longer eligib le based on patient's age to complete this topic documented as of this encounter Medical Devices Not on filedocumented as of this encounter Advance Directives * Full Code (Latest Code Status on File) Date Activated Date Inactivated Comments 09/07/2017 11:38 AM 09/10/2017 3:36 PM This order reflects the patients wishes and were consensually agreed upon. * Full Code Date Activated Date Inactivated Comments 09/07/2017 8:21 AM 09/07/2017 11:38 AM This order reflects the patients wishes and were consensually agreed upon. Care Teams Storage Facility Housekeeper Relationship Specialty Start Date End Date Marifer Morrison MD [address] [place] [address] PCP - General Family Medicine 11/21/15 documented as of this encounter
[2024-10-26] MEDS: SODIUM CHLORIDE 0.9% 1,000 ML IV ONE (12:02)
[2024-10-26] MEDS: FAMOTIDINE 20MG IV PUSH 20 MG/5 ML SYR IV STA (12:10)
[2024-10-26 12:20] LABS: Basophils # (auto) 0.02 K/uL (0.00-0.20); Basophils % (auto) 0.2 %; Hematocrit (blood only) 23.5 % (37.0-47.0); Hemoglobin 7.5 g/dl (12.0-16.0); Immature Granulocytes # (auto) 0.16 K/uL (0.01-0.20); Immature Granulocytes % (auto) 1.3 %; Lymphocytes # (auto) 2.13 K/uL (1.20-3.40); Lymphocytes % (auto) 17.8 %; Mean Corpuscular Hemoglobin 27.5 pg (25.0-34.0); Mean Corpuscular Hgb Conc 31.9 g/dL (32.0-36.0); Mean Corpuscular Volume 86.1 fL (80.0-100.0); Mean Platelet Volume 10.2 fL (9.4-12.4); Monocytes # (auto) 0.43 K/uL (0.11-0.59); Monocytes % (auto) 3.6 %; Neutrophils # (auto) 9.22 K/uL (1.40-6.50); Neutrophils % (auto) 77.1 %; Platelet Count 219 K/uL (130-400); RDW Standard Deviation 47.1 fL (36.4-46.3); Red Blood Count 2.73 M/uL (4.20-5.40); White Blood Count 11.96 K/ul (4.8-10.8)
[2024-10-26 12:36] LABS: Albumin Level 3.4 gm/dl (3.4-5.0); BUN Creatinine Ratio 40.9 (10-20); Bilirubin,Total 0.2 mg/dl (0.2-1.0); Calcium 7.8 mg/dl (8.6-10.3); Creatinine Clr Calc Pharmacy 129.7 ml/min; Globulin 1.7 gm/dl (2.5-4.0); Potassium 4.7 mmol/L (3.5-5.1); Total Protein 5.1 gm/dl (6.0-8.3)
[2024-10-26 12:40] LABS: Pregnancy Test, Serum Negative (Negative)
[2024-10-26 12:41] LABS: RBC Morphology Unremarkable
[2024-10-26 12:45] LABS: INR 1.1 (0.9-1.1); Partial Thromboplastin Ratio 0.9; Partial Thromboplastin Time 24 Seconds (21-31); Prothrombin Time 11.4 Seconds (9.0-12.0)
[2024-10-26] MEDS: OPTIRAY 320 100ml IV ONE (13:06)
--- NOTE | 2024-10-26 13:24 | Emergency Department Note ---
Impression & Plan Acute GI bleeding, Severe anemia, Low back pain ED Provider Note NAME: RAYNE HANDY AGE: 34 SEX: Female INFORMANT: Patient ED PROVIDER(S): Amandeep Mckeon MD CHIEF COMPLAINT: Low back pain and blood in stool PLAN: Disposition: Admitted to the ICU Outpatient prescription management: none Referral: None MEDICAL DECISION MAKING: Patient presented to the emergency department complaining of back pain and had a bloody bowel movement today. No history of melena or hematochezia. Blood was obtained. Patient was found to have a moderate anemia with hemoglobin of 7.5. This was significantly lower than outpatient labs. Patient was started on Protonix and Pepcid. CT imaging was ordered. Patient underwent CT imaging and no acute processes were noted. Vital signs were holding stable. I did consult with gastroenterology on-call, Dr. Mathews. Case was discussed. He agreed with the infusions and will see the patient for GI management. Consultation was made with the [facility] hospitalist service. Patient's vital signs are stable and she attempted to go to the bathroom. Patient did not have a bowel movement as she had a syncopal episode prior to. She did fall. She did have a slight impact on the back of her head without any lacerations. She was placed in a cervical collar. CT imaging of the head and cervical spine were negative. Patient was evaluated and admitted under Dr. Hendrix's service. Patient was hydrated by internal medicine. Patient's blood pressure then dropped. I did consent the patient for packed red blood cell transfusion and this was initiated. I did notify the hospitalist service and did come and evaluate the patient in the ER. I also notified Dr. Mathews and he presented to Emergency Department evaluated the patient. I also consulted with critical care, Dr. Carter. He asked for the patient to receive 2 g of calcium gluconate and asked for fibrinogen level. He agreed with the transfusion of packed red blood cells. I did crossmatch the patient for 4 additional units. Second unit was hung in the emergency department and patient was monitored very closely. Blood pressures did improve. Hypotension resolved. Patient's cervical collar was assessed. She was told having some discomfort around the C6-C7 midline level. Patient was placed in a [place] J collar. I did advise the hospitalist that this should stay in place and when patient is stable MR imaging could be performed to evaluate any ligament strain/sprain. Gastroenterology felt the patient required emergent scoping and the patient will be taken to the operating room prior to going to the intensive care unit. Patient's vital signs stabilized and patient was admitted for further management. I refer you to the EMR for further details. Care/management discussed with: meat manager, hospitalist, GI, critical care medicine Level of care consideration(s): After review of the information above and other included data, I feel the patient requires escalation of care to admission to the ICU Triage Nursing notes: reviewed and agree them. Vital Signs: reviewed and remarkable for hypotension Additional History obtained from: Patient's Chronic Medical/Social Conditions affecting care: none Prior/ Outside/ External records reviewed: Outpatient blood work revealed hemoglobin of over 12 and July of this year. Differential Diagnosis: Diverticulosis, AVM, coagulopathy, colitis, inflammatory bowel disease, malignancy, Maggy-Tan tear, esophagitis, peptic ulcer disease, variceal bleed, gastritis, epistaxis, fissure, hemorrhoids,Musculoskeletal, disc herniation, fracture, metastatic disease, cord compression, discitis, sciatica, cauda equina, infection, aortic disease, renal colic, as well as other pathologies. Diagnostics, independently interpreted by me: ECG: Twelve-lead ECG reveals normal sinus rhythm at [address] elevation or depression. No T WI. Cardiac Monitoring: Cardiac monitoring ordered by me: The patient was placed on continuous cardiac monitoring and observed. It revealed a normal sinus rhythm at 81 beats per minute without ectopy or evidence of dysrhythmia. Medical decision rules: none Imaging studies: Head CT: A noncontrast CT scan of the head was performed and was negative for tumor, fracture, intracranial hemorrhage, or other acute pathology. C-spine CT negative for acute fracture or dislocation CT scan of the abdomen pelvis reveals findings consistent with bariatric surgery without obstruction or inflammatory change. I refer you to the EMR for further details. HPI: 34 year old Female arrives for evaluation of low back pain and blood in the stool. Patient notes having a bloody bowel movement this morning. Denies any history of this. She has a history of bariatric surgery in 2018. Patient notes that she had sudden onset of lower back pain while sitting in a class this morning. She was not doing anything physical. She notes the pain did not radiate. She does have a history of arthritis in her back and joints. She states this felt different. Notes that the pain is much improved and only a 3. It was not unilateral seeming more across the belt line. Patient does note using NSAIDs up to 3 times a day for her arthritis. Patient states that she did feel lightheaded and dizzy after the pain episode. EMS noted that she had some mild hypotension. No medications or treatments given prehospital. Upon arrival to the ER the patient was mildly hypotensive pt denies LOC, headache, fevers, chills, diaphoresis, visual changes, neck pain, chest pain, breathing difficulties, nausea, vomiting, abdominal pain, upper back pain, melena, vaginal bleeding, urinary symptoms, numbness, weakness, lymphadenopathy, rash, or other complaints.. PAST MEDICAL HISTORY: See Below, bipolar PAST SURGICAL HISTORY: See Below, bariatric surgery SOCIAL HISTORY: See Below, non-smoker HOME MEDICATIONS: See Below ALLERGIES: See Below VITALS: See Below PHYSICAL EXAMINATION: GENERAL: Awake, alert, well-appearing, in no distress HENT: Normocephalic, atraumatic. Oropharynx unremarkable. EYES: Normal conjunctiva. Sclera non-icteric. NECK: Inspection normal. Non-tender. Supple. No nuchal rigidity. FROM. No masses. RESPIRATORY: Clear to auscultation. No wheezes. No rales. Normal respiratory effort. CARDIAC: Normal rate. Normal rhythm. No murmurs. No rubs. Extremities warm and well perfused. Pulses equal. No JVD. GI: Soft, non-distended. No tenderness to palpation. No rebound or guarding. No masses. RECTAL: Red stool. Hemoccult positive. No fissures or significant external hemorrhoidal issues. Normal tone. No saddle anesthesia. Negative straight leg raise. MUSCULOSKELETAL: Atraumatic. Chest examination reveals no tenderness. The back is symmetrical on inspection without obvious abnormality. There is no CVA tenderness to palpation. No joint edema. LOWER EXTREMITIES: Calves are equal size bilaterally and non-tender. No edema. No discoloration. NEURO: Normal sensorium. No sensory or motor deficits noted. SKIN: No rash or jaundice noted. PROCEDURES: none CRITICAL CARE: I have personally spent greater than 80 minutes of critical care time in the direct management of this patient. This includes bedside care, interpretation of diagnostic studies, and testing, discussion with consultants, patient, and family members, and other required patient management activities. These minutes are in excess of all separately billable procedures. OBSERVATION NOTE: none Past Med/Surg History Problem List (Updated 10/26/24 @ 15:20 by Evelyne Ag PA-C) Syncope and collapse Acute blood loss anemia Low back pain (Acute) Severe anemia (Acute) Acute GI bleeding (Acute) Abnormal bruising Raynauds disease Binge eating (Acute) Bipolar I disorder, single manic episode (Acute) Borderline personality disorder (Acute) Chronic rhinitis (Acute) Contraceptive device, intrauterine (Acute) Depression (Acute) Hyperlipidemia (Acute) Medical History (Updated 10/26/24 @ 15:20 by Evelyne Ag PA-C) Pityriasis rosea Seborrheic keratosis Degenerative disc disease Bipolar disorder Anxiety and depression History of hypertension Gastric ulcer due to nonsteroidal antiinflammatory drug (NSAID) therapy Surgical History S/P abdominoplasty 04/22/19 Dr. Elizabet Paul abdominoplasty History of cholecystectomy [place] teeth removed H/O elbow surgery LEFT ARM S/P biliopancreatic diversion with duodenal switch S/P gastric bypass Family History Uncle Brain cancer Father Colon cancer Mother Other cervical disc degeneration, cervicothoracic region Diabetes Gout Arthritis Uterine cancer Grandfather (Paternal) Gout Bipolar disorder Migraine Lung cancer Sister Migraine Denies family history of Ovarian cancer Prostate cancer Myocardial infarction Breast cancer Pancreatic adenocarcinoma Social History Smoking Status: Unknown if ever smoked Second Hand Exposure: No; Do You Dip or Chew Tobacco: No; Hx Alcohol Use: No Hx Substance Use: No Preferred Language: Uzbek Communication Ability: Effective Visual Impairment: No Limitations Hearing Ability: Normal Hand Sprayer Required: No Beliefs That Will Affect Care: None marital status: Single Current Living Situation: Spouse current occupational status: employed Feels Safe at Home: Yes Childhood Exposure to Second-Hand Smoke: Yes Diet: regular Diet Comment: regular Dental Care, Regularly: Yes Physical Activity Frequency: 3-4 Times per Week Seatbelt Use: always Sunscreen Use: Yes Assistive Devices: None Allergies Allergies Allergy/AdvReac Type Severity Reaction Status Date / Time pineapple Allergy Intermediate MOUTH Verified 10/26/24 12:21 SORES, CAN'T TASTE FOR A WHILE AFTER nickel Allergy Mild Skin Verified 10/26/24 12:21 IRRITATION Home Meds Home Medications Medication Instructions Recorded Confirmed levonorgestrel 21 mcg/24 hr (up to 1 device intrauterine CONTINOUS 02/04/19 10/26/24 8 years) 52 mg intrauterine device (Mirena) lamotrigine 100 mg tablet 200 mg PO HS 09/25/19 10/26/24 lorazepam 0.5 mg tablet 0.25 - 0.5 mg PO BID PRN 08/23/23 10/26/24 Anxiety/Nightmares aripiprazole 2 mg tablet (Abilify) 2 mg PO DAILY 12/26/23 10/26/24 desvenlafaxine succinate 25 mg 25 mg PO QAM 10/26/24 10/26/24 tablet,extended release 24 hr desvenlafaxine succinate 50 mg 50 mg PO QAM 10/26/24 10/26/24 tablet,extended release 24 hr temazepam 22.5 mg capsule 22.5 mg PO HS PRN Sleep 10/26/24 10/26/24 trazodone 50 mg tablet 50 mg PO HS PRN Sleep 10/26/24 10/26/24 Results & Data (ED) Vital Signs Vital Signs - 24 hr 10/26/24 11:34 10/26/24 11:34 10/26/24 11:38 Temperature 36.9 C Temperature Source Oral Pulse Rate 87 Pulse Rate from SpO2 Sensor Pulse Strength Respiratory Rate 19 Respiratory Effort / Characteristics Non-Labored Spontaneous Respiratory Depth Normal Blood Pressure 93/77 L 93/77 L 93/77 L Blood Pressure Mean 85 85 82 Pulse Oximetry 93 Oxygen Delivery Method Room Air Sepsis Recent Fever Within 48 Hours No Sepsis New/Unexplained Change in Mental Status No Sepsis Action Taken by Nursing No Action Required 10/26/24 11:47 10/26/24 11:57 10/26/24 12:00 Temperature Temperature Source Pulse Rate 93 H Pulse Rate from SpO2 Sensor Pulse Strength Respiratory Rate 18 Respiratory Effort / Characteristics Respiratory Depth Blood Pressure 125/75 115/63 Blood Pressure Mean 86 70 Pulse Oximetry 100 Oxygen Delivery Method Room Air Sepsis Recent Fever Within 48 Hours Sepsis New/Unexplained Change in Mental Status Sepsis Action Taken by Nursing 10/26/24 12:00 10/26/24 12:00 10/26/24 12:00 Temperature Temperature Source Pulse Rate Pulse Rate from SpO2 Sensor Pulse Strength Respiratory Rate Respiratory Effort / Characteristics Respiratory Depth Blood Pressure 115/63 115/63 115/63 Blood Pressure Mean 70 70 70 Pulse Oximetry Oxygen Delivery Method Sepsis Recent Fever Within 48 Hours Sepsis New/Unexplained Change in Mental Status Sepsis Action Taken by Nursing 10/26/24 12:00 10/26/24 12:00 10/26/24 12:00 Temperature Temperature Source Pulse Rate Pulse Rate from SpO2 Sensor Pulse Strength Respiratory Rate Respiratory Effort / Characteristics Respiratory Depth Blood Pressure 115/63 115/63 115/63 Blood Pressure Mean 70 70 70 Pulse Oximetry Oxygen Delivery Method Sepsis Recent Fever Within 48 Hours Sepsis New/Unexplained Change in Mental Status Sepsis Action Taken by Nursing 10/26/24 12:00 10/26/24 12:00 10/26/24 12:00 Temperature Temperature Source Pulse Rate Pulse Rate from SpO2 Sensor Pulse Strength Respiratory Rate Respiratory Effort / Characteristics Respiratory Depth Blood Pressure 115/63 115/63 115/63 Blood Pressure Mean 70 70 70 Pulse Oximetry Oxygen Delivery Method Sepsis Recent Fever Within 48 Hours Sepsis New/Unexplained Change in Mental Status Sepsis Action Taken by Nursing 10/26/24 12:09 10/26/24 12:18 10/26/24 12:30 Temperature Temperature Source Pulse Rate 94 H 81 Pulse Rate from SpO2 Sensor 95 H Pulse Strength Respiratory Rate 14 Respiratory Effort / Characteristics Respiratory Depth Blood Pressure 121/62 Blood Pressure Mean 76 Pulse Oximetry 100 Oxygen Delivery Method Sepsis Recent Fever Within 48 Hours Sepsis New/Unexplained Change in Mental Status Sepsis Action Taken by Nursing 10/26/24 12:30 10/26/24 12:30 10/26/24 12:30 Temperature Temperature Source Pulse Rate Pulse Rate from SpO2 Sensor Pulse Strength Respiratory Rate Respiratory Effort / Characteristics Respiratory Depth Blood Pressure 121/62 121/62 121/62 Blood Pressure Mean 76 76 76 Pulse Oximetry Oxygen Delivery Method Sepsis Recent Fever Within 48 Hours Sepsis New/Unexplained Change in Mental Status Sepsis Action Taken by Nursing 10/26/24 12:30 10/26/24 12:30 10/26/24 12:30 Temperature Temperature Source Pulse Rate Pulse Rate from SpO2 Sensor Pulse Strength Respiratory Rate Respiratory Effort / Characteristics Respiratory Depth Blood Pressure 121/62 121/62 121/62 Blood Pressure Mean 76 76 76 Pulse Oximetry Oxygen Delivery Method Sepsis Recent Fever Within 48 Hours Sepsis New/Unexplained Change in Mental Status Sepsis Action Taken by Nursing 10/26/24 12:30 10/26/24 12:30 10/26/24 12:30 Temperature Temperature Source Pulse Rate Pulse Rate from SpO2 Sensor Pulse Strength Respiratory Rate Respiratory Effort / Characteristics Respiratory Depth Blood Pressure 121/62 121/62 121/62 Blood Pressure Mean 76 76 76 Pulse Oximetry Oxygen Delivery Method Sepsis Recent Fever Within 48 Hours Sepsis New/Unexplained Change in Mental Status Sepsis Action Taken by Nursing 10/26/24 12:30 10/26/24 13:00 10/26/24 13:00 Temperature Temperature Source Pulse Rate 87 Pulse Rate from SpO2 Sensor 85 Pulse Strength Respiratory Rate 29 H Respiratory Effort / Characteristics Respiratory Depth Blood Pressure 117/64 117/64 Blood Pressure Mean 73 73 Pulse Oximetry 100 Oxygen Delivery Method Sepsis Recent Fever Within 48 Hours Sepsis New/Unexplained Change in Mental Status Sepsis Action Taken by Nursing 10/26/24 13:00 10/26/24 13:00 10/26/24 13:00 Temperature Temperature Source Pulse Rate Pulse Rate from SpO2 Sensor Pulse Strength Respiratory Rate Respiratory Effort / Characteristics Respiratory Depth Blood Pressure 117/64 117/64 117/64 Blood Pressure Mean 73 73 73 Pulse Oximetry Oxygen Delivery Method Sepsis Recent Fever Within 48 Hours Sepsis New/Unexplained Change in Mental Status Sepsis Action Taken by Nursing 10/26/24 13:00 10/26/24 13:00 10/26/24 13:00 Temperature Temperature Source Pulse Rate Pulse Rate from SpO2 Sensor Pulse Strength Respiratory Rate Respiratory Effort / Characteristics Respiratory Depth Blood Pressure 117/64 117/64 117/64 Blood Pressure Mean 73 73 73 Pulse Oximetry Oxygen Delivery Method Sepsis Recent Fever Within 48 Hours Sepsis New/Unexplained Change in Mental Status Sepsis Action Taken by Nursing 10/26/24 13:00 10/26/24 13:00 10/26/24 13:00 Temperature Temperature Source Pulse Rate Pulse Rate from SpO2 Sensor Pulse Strength Respiratory Rate Respiratory Effort / Characteristics Respiratory Depth Blood Pressure 117/64 117/64 117/64 Blood Pressure Mean 73 73 73 Pulse Oximetry Oxygen Delivery Method Sepsis Recent Fever Within 48 Hours Sepsis New/Unexplained Change in Mental Status Sepsis Action Taken by Nursing 10/26/24 13:00 10/26/24 13:00 10/26/24 13:24 Temperature Temperature Source Pulse Rate 80 81 Pulse Rate from SpO2 Sensor 78 82 Pulse Strength Respiratory Rate 12 14 Respiratory Effort / Characteristics Respiratory Depth Blood Pressure 117/64 118/65 Blood Pressure Mean 73 82 Pulse Oximetry 100 99 Oxygen Delivery Method Sepsis Recent Fever Within 48 Hours Sepsis New/Unexplained Change in Mental Status Sepsis Action Taken by Nursing 10/26/24 13:42 10/26/24 13:57 10/26/24 14:00 Temperature Temperature Source Pulse Rate 88 94 H Pulse Rate from SpO2 Sensor 89 96 H Pulse Strength Respiratory Rate 15 18 Respiratory Effort / Characteristics Respiratory Depth Blood Pressure 116/66 Blood Pressure Mean 76 Pulse Oximetry 100 100 Oxygen Delivery Method Sepsis Recent Fever Within 48 Hours Sepsis New/Unexplained Change in Mental Status Sepsis Action Taken by Nursing 10/26/24 14:10 10/26/24 14:10 10/26/24 14:30 Temperature Temperature Source Pulse Rate Pulse Rate from SpO2 Sensor Pulse Strength Respiratory Rate Respiratory Effort / Characteristics Respiratory Depth Blood Pressure 142/77 H 142/77 H 138/71 Blood Pressure Mean 107 107 81 Pulse Oximetry Oxygen Delivery Method Sepsis Recent Fever Within 48 Hours Sepsis New/Unexplained Change in Mental Status Sepsis Action Taken by Nursing 10/26/24 14:30 10/26/24 14:30 10/26/24 14:30 Temperature Temperature Source Pulse Rate Pulse Rate from SpO2 Sensor Pulse Strength Respiratory Rate Respiratory Effort / Characteristics Respiratory Depth Blood Pressure 138/71 138/71 138/71 Blood Pressure Mean 81 81 81 Pulse Oximetry Oxygen Delivery Method Sepsis Recent Fever Within 48 Hours Sepsis New/Unexplained Change in Mental Status Sepsis Action Taken by Nursing 10/26/24 14:30 10/26/24 14:30 10/26/24 14:30 Temperature Temperature Source Pulse Rate Pulse Rate from SpO2 Sensor Pulse Strength Respiratory Rate Respiratory Effort / Characteristics Respiratory Depth Blood Pressure 138/71 138/71 138/71 Blood Pressure Mean 81 81 81 Pulse Oximetry Oxygen Delivery Method Sepsis Recent Fever Within 48 Hours Sepsis New/Unexplained Change in Mental Status Sepsis Action Taken by Nursing 10/26/24 14:30 10/26/24 14:30 10/26/24 14:36 Temperature Temperature Source Pulse Rate 101 H Pulse Rate from SpO2 Sensor 88 Pulse Strength Respiratory Rate 23 Respiratory Effort / Characteristics Respiratory Depth Blood Pressure 138/71 138/71 Blood Pressure Mean 81 81 Pulse Oximetry 79 L Oxygen Delivery Method Sepsis Recent Fever Within 48 Hours Sepsis New/Unexplained Change in Mental Status Sepsis Action Taken by Nursing 10/26/24 15:00 10/26/24 15:00 10/26/24 15:00 Temperature Temperature Source Pulse Rate Pulse Rate from SpO2 Sensor Pulse Strength Respiratory Rate Respiratory Effort / Characteristics Respiratory Depth Blood Pressure 126/75 126/75 126/75 Blood Pressure Mean 96 96 96 Pulse Oximetry Oxygen Delivery Method Sepsis Recent Fever Within 48 Hours Sepsis New/Unexplained Change in Mental Status Sepsis Action Taken by Nursing 10/26/24 15:00 10/26/24 15:20 10/26/24 15:30 Temperature 37.0 C Temperature Source Oral Pulse Rate 106 H 78 Pulse Rate from SpO2 Sensor 106 H Pulse Strength Normal Respiratory Rate 16 19 Respiratory Effort / Characteristics Respiratory Depth Blood Pressure 113/60 107/57 L Blood Pressure Mean 79 73 Pulse Oximetry 100 100 Oxygen Delivery Method Sepsis Recent Fever Within 48 Hours Sepsis New/Unexplained Change in Mental Status Sepsis Action Taken by Nursing 10/26/24 15:30 10/26/24 15:36 10/26/24 15:37 Temperature Temperature Source Pulse Rate 84 83 Pulse Rate from SpO2 Sensor 83 83 Pulse Strength Respiratory Rate 17 13 Respiratory Effort / Characteristics Respiratory Depth Blood Pressure 112/58 L Blood Pressure Mean 76 Pulse Oximetry 100 100 Oxygen Delivery Method Sepsis Recent Fever Within 48 Hours Sepsis New/Unexplained Change in Mental Status Sepsis Action Taken by Nursing 10/26/24 15:37 10/26/24 15:37 10/26/24 15:37 Temperature Temperature Source Pulse Rate Pulse Rate from SpO2 Sensor Pulse Strength Respiratory Rate Respiratory Effort / Characteristics Respiratory Depth Blood Pressure 112/58 L 112/58 L 112/58 L Blood Pressure Mean 76 76 76 Pulse Oximetry Oxygen Delivery Method Sepsis Recent Fever Within 48 Hours Sepsis New/Unexplained Change in Mental Status Sepsis Action Taken by Nursing 10/26/24 15:37 10/26/24 15:37 10/26/24 15:37 Temperature Temperature Source Pulse Rate Pulse Rate from SpO2 Sensor Pulse Strength Respiratory Rate Respiratory Effort / Characteristics Respiratory Depth Blood Pressure 112/58 L 112/58 L 112/58 L Blood Pressure Mean 76 76 76 Pulse Oximetry Oxygen Delivery Method Sepsis Recent Fever Within 48 Hours Sepsis New/Unexplained Change in Mental Status Sepsis Action Taken by Nursing 10/26/24 15:37 10/26/24 15:45 10/26/24 15:45 Temperature 36.0 C L 37.0 C Temperature Source Oral Oral Pulse Rate 78 88 Pulse Rate from SpO2 Sensor Pulse Strength Respiratory Rate 18 19 Respiratory Effort / Characteristics Respiratory Depth Blood Pressure 112/58 L 94/43 L 94/56 L Blood Pressure Mean 76 60 68 Pulse Oximetry 100 100 Oxygen Delivery Method Sepsis Recent Fever Within 48 Hours Sepsis New/Unexplained Change in Mental Status Sepsis Action Taken by Nursing 10/26/24 15:45 10/26/24 15:45 10/26/24 15:45 Temperature 37.0 C 37.0 C 37.0 C Temperature Source Oral Oral Oral Pulse Rate 79 78 78 Pulse Rate from SpO2 Sensor Pulse Strength Respiratory Rate 18 18 18 Respiratory Effort / Characteristics Respiratory Depth Blood Pressure 94/59 L 94/43 L 94/43 L Blood Pressure Mean 70 60 60 Pulse Oximetry 100 100 100 Oxygen Delivery Method Sepsis Recent Fever Within 48 Hours Sepsis New/Unexplained Change in Mental Status Sepsis Action Taken by Nursing 10/26/24 15:45 10/26/24 15:45 10/26/24 15:52 Temperature 37.0 C Temperature Source Oral Pulse Rate 78 80 Pulse Rate from SpO2 Sensor 81 Pulse Strength Respiratory Rate 18 16 Respiratory Effort / Characteristics Respiratory Depth Blood Pressure 94/43 L 94/43 L 103/53 L Blood Pressure Mean 60 60 73 Pulse Oximetry 100 100 Oxygen Delivery Method Sepsis Recent Fever Within 48 Hours Sepsis New/Unexplained Change in Mental Status Sepsis Action Taken by Nursing 10/26/24 15:52 10/26/24 16:00 10/26/24 16:00 Temperature 37.0 C Temperature Source Oral Pulse Rate 78 Pulse Rate from SpO2 Sensor Pulse Strength Respiratory Rate 18 Respiratory Effort / Characteristics Respiratory Depth Blood Pressure 103/53 L 99/54 L 99/54 L Blood Pressure Mean 73 69 62 Pulse Oximetry 100 Oxygen Delivery Method Sepsis Recent Fever Within 48 Hours Sepsis New/Unexplained Change in Mental Status Sepsis Action Taken by Nursing 10/26/24 16:00 10/26/24 16:00 10/26/24 16:00 Temperature Temperature Source Pulse Rate Pulse Rate from SpO2 Sensor Pulse Strength Respiratory Rate Respiratory Effort / Characteristics Respiratory Depth Blood Pressure 99/54 L 99/54 L 99/54 L Blood Pressure Mean 62 62 62 Pulse Oximetry Oxygen Delivery Method Sepsis Recent Fever Within 48 Hours Sepsis New/Unexplained Change in Mental Status Sepsis Action Taken by Nursing 10/26/24 16:00 10/26/24 16:00 10/26/24 16:12 Temperature Temperature Source Pulse Rate 84 86 Pulse Rate from SpO2 Sensor 88 Pulse Strength Respiratory Rate 20 23 Respiratory Effort / Characteristics Respiratory Depth Blood Pressure 99/54 L 99/54 L 100/51 L Blood Pressure Mean 62 62 67 Pulse Oximetry 100 100 Oxygen Delivery Method Sepsis Recent Fever Within 48 Hours Sepsis New/Unexplained Change in Mental Status Sepsis Action Taken by Nursing 10/26/24 16:15 10/26/24 16:20 10/26/24 16:24 Temperature 37.1 C 36.9 C Temperature Source Oral Oral Pulse Rate 76 83 Pulse Rate from SpO2 Sensor Pulse Strength Respiratory Rate 18 14 Respiratory Effort / Characteristics Respiratory Depth Blood Pressure 100/54 L 89/53 L 89/35 L Blood Pressure Mean 69 65 42 Pulse Oximetry 99 99 Oxygen Delivery Method Sepsis Recent Fever Within 48 Hours Sepsis New/Unexplained Change in Mental Status Sepsis Action Taken by Nursing 10/26/24 16:27 10/26/24 16:30 10/26/24 16:30 Temperature Temperature Source Pulse Rate 87 Pulse Rate from SpO2 Sensor 88 Pulse Strength Respiratory Rate 23 Respiratory Effort / Characteristics Respiratory Depth Blood Pressure 89/35 L 105/50 L 105/50 L Blood Pressure Mean 53 75 75 Pulse Oximetry 100 Oxygen Delivery Method Sepsis Recent Fever Within 48 Hours Sepsis New/Unexplained Change in Mental Status Sepsis Action Taken by Nursing 10/26/24 16:30 10/26/24 16:30 10/26/24 16:30 Temperature Temperature Source Pulse Rate Pulse Rate from SpO2 Sensor Pulse Strength Respiratory Rate Respiratory Effort / Characteristics Respiratory Depth Blood Pressure 105/50 L 105/50 L 105/50 L Blood Pressure Mean 75 75 75 Pulse Oximetry Oxygen Delivery Method Sepsis Recent Fever Within 48 Hours Sepsis New/Unexplained Change in Mental Status Sepsis Action Taken by Nursing 10/26/24 16:30 10/26/24 16:35 10/26/24 16:42 Temperature 36.9 C Temperature Source Oral Pulse Rate 70 85 Pulse Rate from SpO2 Sensor 84 Pulse Strength Respiratory Rate 18 18 Respiratory Effort / Characteristics Respiratory Depth Blood Pressure 105/50 L 105/50 L Blood Pressure Mean 75 68 Pulse Oximetry 100 100 Oxygen Delivery Method Sepsis Recent Fever Within 48 Hours Sepsis New/Unexplained Change in Mental Status Sepsis Action Taken by Nursing 10/26/24 16:44 10/26/24 16:45 10/26/24 16:45 Temperature 36.9 C 36.9 C Temperature Source Oral Oral Pulse Rate 75 83 Pulse Rate from SpO2 Sensor Pulse Strength Respiratory Rate 19 19 Respiratory Effort / Characteristics Respiratory Depth Blood Pressure 119/55 L 119/55 L 119/55 L Blood Pressure Mean 76 76 83 Pulse Oximetry 100 100 Oxygen Delivery Method Sepsis Recent Fever Within 48 Hours Sepsis New/Unexplained Change in Mental Status Sepsis Action Taken by Nursing 10/26/24 16:45 10/26/24 16:45 10/26/24 16:45 Temperature Temperature Source Pulse Rate Pulse Rate from SpO2 Sensor Pulse Strength Respiratory Rate Respiratory Effort / Characteristics Respiratory Depth Blood Pressure 119/55 L 119/55 L 119/55 L Blood Pressure Mean 83 83 83 Pulse Oximetry Oxygen Delivery Method Sepsis Recent Fever Within 48 Hours Sepsis New/Unexplained Change in Mental Status Sepsis Action Taken by Nursing 10/26/24 16:45 10/26/24 16:45 10/26/24 16:45 Temperature Temperature Source Pulse Rate Pulse Rate from SpO2 Sensor Pulse Strength Respiratory Rate Respiratory Effort / Characteristics Respiratory Depth Blood Pressure 119/55 L 119/55 L 119/55 L Blood Pressure Mean 83 83 83 Pulse Oximetry Oxygen Delivery Method Sepsis Recent Fever Within 48 Hours Sepsis New/Unexplained Change in Mental Status Sepsis Action Taken by Nursing 10/26/24 16:54 10/26/24 17:00 10/26/24 17:09 Temperature 36.8 C 37.1 C Temperature Source Oral Oral Pulse Rate 84 90 Pulse Rate from SpO2 Sensor Pulse Strength Respiratory Rate 19 22 Respiratory Effort / Characteristics Respiratory Depth Blood Pressure 108/63 112/69 112/69 Blood Pressure Mean 78 78 83 Pulse Oximetry 100 100 Oxygen Delivery Method Sepsis Recent Fever Within 48 Hours Sepsis New/Unexplained Change in Mental Status Sepsis Action Taken by Nursing 10/26/24 17:15 10/26/24 17:20 10/26/24 17:20 Temperature Temperature Source Pulse Rate Pulse Rate from SpO2 Sensor Pulse Strength Respiratory Rate Respiratory Effort / Characteristics Respiratory Depth Blood Pressure 108/63 118/57 L 118/57 L Blood Pressure Mean 70 62 62 Pulse Oximetry Oxygen Delivery Method Sepsis Recent Fever Within 48 Hours Sepsis New/Unexplained Change in Mental Status Sepsis Action Taken by Nursing 10/26/24 17:20 10/26/24 17:20 10/26/24 17:21 Temperature Temperature Source Pulse Rate 78 Pulse Rate from SpO2 Sensor 79 Pulse Strength Respiratory Rate 20 Respiratory Effort / Characteristics Respiratory Depth Blood Pressure 118/57 L 118/57 L Blood Pressure Mean 62 62 Pulse Oximetry 100 Oxygen Delivery Method Sepsis Recent Fever Within 48 Hours Sepsis New/Unexplained Change in Mental Status Sepsis Action Taken by Nursing 10/26/24 17:30 10/26/24 17:30 10/26/24 17:30 Temperature Temperature Source Pulse Rate Pulse Rate from SpO2 Sensor Pulse Strength Respiratory Rate Respiratory Effort / Characteristics Respiratory Depth Blood Pressure 109/68 109/68 109/68 Blood Pressure Mean 83 83 83 Pulse Oximetry Oxygen Delivery Method Sepsis Recent Fever Within 48 Hours Sepsis New/Unexplained Change in Mental Status Sepsis Action Taken by Nursing 10/26/24 17:30 10/26/24 17:30 10/26/24 17:30 Temperature Temperature Source Pulse Rate Pulse Rate from SpO2 Sensor Pulse Strength Respiratory Rate Respiratory Effort / Characteristics Respiratory Depth Blood Pressure 109/68 109/68 109/68 Blood Pressure Mean 83 83 83 Pulse Oximetry Oxygen Delivery Method Sepsis Recent Fever Within 48 Hours Sepsis New/Unexplained Change in Mental Status Sepsis Action Taken by Nursing 10/26/24 17:36 10/26/24 17:39 10/26/24 17:45 Temperature 37.3 C Temperature Source Oral Pulse Rate 85 78 94 H Pulse Rate from SpO2 Sensor 87 Pulse Strength Respiratory Rate 15 19 15 Respiratory Effort / Characteristics Respiratory Depth Blood Pressure 126/68 Blood Pressure Mean 87 Pulse Oximetry 100 100 Oxygen Delivery Method Sepsis Recent Fever Within 48 Hours Sepsis New/Unexplained Change in Mental Status Sepsis Action Taken by Nursing 10/26/24 17:49 Temperature 37.1 C Temperature Source Oral Pulse Rate 81 Pulse Rate from SpO2 Sensor Pulse Strength Respiratory Rate 19 Respiratory Effort / Characteristics Respiratory Depth Blood Pressure 118/57 L Blood Pressure Mean 77 Pulse Oximetry 100 Oxygen Delivery Method Sepsis Recent Fever Within 48 Hours Sepsis New/Unexplained Change in Mental Status Sepsis Action Taken by Nursing Laboratory Data 10/26/24 11:59 10/26/24 11:59 Lab Results 10/26/24 10/26/24 10/26/24 Range/Units 11:57 11:59 12:03 WBC 11.96 H (4.8-10.8) K/ul RBC 2.73 L (4.20-5.40) M/uL Hgb 7.5 L (12.0-16.0) g/dl POC Hgb (12.0-16.0) g/dl Hct 23.5 L (37.0-47.0) % POC Hct (37-47) % MCV 86.1 (80.0-100.0) fL MCH 27.5 (25.0-34.0) pg MCHC 31.9 L (32.0-36.0) g/dL RDW Std Deviation 47.1 H (36.4-46.3) fL RDW Coeff of Edi 15.0 H (11.5-14.5) % Plt Count 219 (130-400) K/uL MPV 10.2 (9.4-12.4) fL Immature Gran % (Auto) 1.3 % Neut % (Auto) 77.1 % Lymph % (Auto) 17.8 % [place] % (Auto) 3.6 % Eos % (Auto) 0.0 % Baso % (Auto) 0.2 % Neut # (Auto) 9.22 H (1.40-6.50) K/uL Lymph # (Auto) 2.13 (1.20-3.40) K/uL [place] # (Auto) 0.43 (0.11-0.59) K/uL Eos # (Auto) 0.00 (0.00-0.50) K/uL Baso # (Auto) 0.02 (0.00-0.20) K/uL Immature Gran # (Auto) 0.16 (0.01-0.20) K/uL RBC Morphology Unremarkable PT 11.4 (9.0-12.0) Seconds INR 1.1 (0.9-1.1) APTT 24 (21-31) Seconds PTT Ratio 0.9 POC Sodium (135-144) mmol/L Sodium 137 (136-145) mmol/L POC Potassium (3.3-5.0) mmol/L Potassium 4.7 (3.5-5.1) mmol/L POC Chloride (101-112) mmol/L Chloride 109 H (98-107) mmol/L Carbon Dioxide 25 (21-32) mmol/L POC Total CO2 (24-31) mmol/L Anion Gap 3 (3-11) POC Anion Gap (16-25) mmol/L POC BUN (7-18) mg/dl BUN 27 H (6-23) mg/dl Creatinine 0.66 (0.6-1.2) mg/dl POC Creatinine (0.6-1.3) mg/dl Est Cr Clr Drug Dosing 129.7 ml/min eGFR 116.52 BUN/Creatinine Ratio 40.9 H (10-20) Glucose 114 H (70-99(Fasting)) mg/dl POC Glucose (other) (70-99) mg/dl Calcium 7.8 L (8.6-10.3) mg/dl POC Ioniz Calcium Sofie (1.12-1.32) mmol/l Total Bilirubin 0.2 (0.2-1.0) mg/dl AST 16 (13-39) U/L ALT 15 (7-52) U/L Alkaline Phosphatase 33 L (34-104) U/L Total Protein 5.1 L (6.0-8.3) gm/dl Albumin 3.4 (3.4-5.0) gm/dl Globulin 1.7 L (2.5-4.0) gm/dl Albumin/Globulin Ratio 2.0 (0.9-2) HCG, Qual Negative (Negative) POC Stool Occult Blood Positive A (Negative) Blood Type A Positive Blood Type Recheck Antibody Screen NEGATIVE Crossmatch See Detail 10/26/24 10/26/24 Range/Units 14:17 14:31 WBC (4.8-10.8) K/ul RBC (4.20-5.40) M/uL Hgb (12.0-16.0) g/dl POC Hgb 5.8 L* (12.0-16.0) g/dl Hct (37.0-47.0) % POC Hct 17 L* (37-47) % MCV (80.0-100.0) fL MCH (25.0-34.0) pg MCHC (32.0-36.0) g/dL RDW Std Deviation (36.4-46.3) fL RDW Coeff of Edi (11.5-14.5) % Plt Count (130-400) K/uL MPV (9.4-12.4) fL Immature Gran % (Auto) % Neut % (Auto) % Lymph % (Auto) % [place] % (Auto) % Eos % (Auto) % Baso % (Auto) % Neut # (Auto) (1.40-6.50) K/uL Lymph # (Auto) (1.20-3.40) K/uL [place] # (Auto) (0.11-0.59) K/uL Eos # (Auto) (0.00-0.50) K/uL Baso # (Auto) (0.00-0.20) K/uL Immature Gran # (Auto) (0.01-0.20) K/uL RBC Morphology PT (9.0-12.0) Seconds INR (0.9-1.1) APTT (21-31) Seconds PTT Ratio POC Sodium 140 (135-144) mmol/L Sodium (136-145) mmol/L POC Potassium 4.4 (3.3-5.0) mmol/L Potassium (3.5-5.1) mmol/L POC Chloride 106 (101-112) mmol/L Chloride (98-107) mmol/L Carbon Dioxide (21-32) mmol/L POC Total CO2 18 L (24-31) mmol/L Anion Gap (3-11) POC Anion Gap 21.0 (16-25) mmol/L POC BUN 24 H (7-18) mg/dl BUN (6-23) mg/dl Creatinine (0.6-1.2) mg/dl POC Creatinine 0.6 (0.6-1.3) mg/dl Est Cr Clr Drug Dosing ml/min eGFR BUN/Creatinine Ratio (10-20) Glucose (70-99(Fasting)) mg/dl POC Glucose (other) 121 H (70-99) mg/dl Calcium (8.6-10.3) mg/dl POC Ioniz Calcium Sofie 1.06 L (1.12-1.32) mmol/l Total Bilirubin (0.2-1.0) mg/dl AST (13-39) U/L ALT (7-52) U/L Alkaline Phosphatase (34-104) U/L Total Protein (6.0-8.3) gm/dl Albumin (3.4-5.0) gm/dl Globulin (2.5-4.0) gm/dl Albumin/Globulin Ratio (0.9-2) HCG, Qual (Negative) POC Stool Occult Blood (Negative) Blood Type Blood Type Recheck A Positive Antibody Screen Crossmatch Administered Medications Pantoprazole Sodium 40 mg/ (Dextrose) 100 mls @ 20 mls/hr IV Q5H JUNE Stop: 11/25/24 12:59 Last Admin: 10/26/24 14:15 Dose: 8 mg/hr, 20 mls/hr Documented By: BS Discontinued Medications Sodium Chloride (Nss) 1,000 mls @ 999 mls/hr IV .Q1H1M ONE Stop: 10/26/24 12:57 Last Admin: 04/05/25 12:02 Dose: 999 mls/hr Documented By: ZIGGY Famotidine (Pepcid 20mg Iv Push) 20 mg in 5 mls @ 2.5 mls/min IV NOW STA Stop: 10/26/24 11:58 Last Admin: 10/26/24 12:10 Dose: 2.5 mls/min Documented By: ZIGGY Pantoprazole Sodium 80 mg/ (Dextrose) 120 mls @ 480 mls/hr IV NOW ONE Stop: 10/26/24 12:47 Last Admin: 10/26/24 13:37 Dose: 480 mls/hr Documented By: ZIGGY Sodium Chloride (Nss) 500 mls @ 999 mls/hr IV .Q31M ONE Stop: 10/26/24 14:47 Last Infusion: 10/26/24 17:24 Dose: Infused Documented By: Admin: 10/26/24 15:39 Dose: 999 mls/hr Documented By: ZIGGY Sodium Chloride (Nss) 500 mls @ 999 mls/hr IV .Q31M ONE Stop: 10/26/24 15:47 Last Infusion: 10/26/24 17:24 Dose: Infused Documented By: Admin: 10/26/24 14:30 Dose: 999 mls/hr Documented By: ZIGGY Calcium Gluconate () 1,000 mg in 60 mls @ 240 mls/hr IV Q15M JUNE Stop: 10/26/24 17:29 Last Admin: 10/26/24 17:38 Dose: 240 mls/hr Documented By: ZIGGY Ioversol (Optiray 320 100ml) 93 ml IV ONCE ONE Stop: 10/26/24 13:07 Last Admin: 10/26/24 13:06 Dose: 93 ml Documented By: FRANSISCO Pantoprazole Sodium (Pantoprazole Bolus/Drip) 1 each IV NOW STA Stop: 10/26/24 12:34 Last Admin: 10/26/24 13:37 Dose: Not Given Documented By: ZIGGY Imaging Data Radiologist's Impression: Abdomen/Pelvis CT 10/26/24 11:[address] WITH IV CONTRAST CT DOSE: 765.16 mGy.cm HISTORY: Acute lower abdominal and back pain lower back pain, GI bleed, hx of duodenal switch TECHNIQUE: Multiaxial CT images of the abdomen and pelvis were performed following the IV administration of 93 cc of Optiray, A dose lowering technique was utilized adhering to the principles of ALARA. COMPARISON STUDY: 10/20/2017 FINDINGS: Clear lung bases. No pneumatosis. Unremarkable spleen, pancreas and adrenal glands. Cholecystectomy. Progressive dilation of the biliary tree with the common bile duct measuring 2.2 cm transversely, previously 1.5 cm. No obstructing biliary stone or lesion identified. Patency of the hepatic and portal veins. No liver lesion identified. Unremarkable kidneys. No hydronephrosis. Unremarkable urinary bladder. IUD in the uterus. 2.2 cm involuting right ovarian follicle. Aorta and IVC are unremarkable. No lymphadenopathy. Emir-en-Y gastric bypass. Dilation of the jejunojejunal anastomosis without evidence of upstream obstruction. Moderate colonic fecal retention. Normal appendix. No acute fracture. Lumbar levoscoliosis. IMPRESSION: 1. No bowel obstruction or bowel wall thickening. 2. Cholecystectomy with progressive biliary ductal dilation compared to the study from 2018. Correlate with serum bilirubin. 3. Prior Emir-en-Y gastric bypass 4. Probable constipation. 5. Involuting right ovarian follicle. ACT 112: Negative or not required by law. The above report was generated using voice recognition software. It may contain grammatical, syntax or spelling errors. Electronically signed by: Nitish Pickering M.D. 10/26/2024 2:[address] 10/26/24 14:17 CT cervical spine without IV contrast History: Syncope Comparison: None Technique: Using multidetector thin collimation helical acquisition technique, axial, coronal and sagittal CT images through the cervical spine were obtained without intravenous contrast. Dose reduction techniques were achieved by using automatic exposure control and/or adjustment of mA and/or kV according to patient size and/or use of iterative reconstruction technique. Findings: The cervical vertebrae are normally aligned. Straightened cervical lordosis. No acute fracture or subluxation. No prevertebral edema. There are mild to moderate discogenic degenerative changes associated with small disc osteophyte complexes at C5-6 and C6-7. No abnormality of the paraspinous soft tissues. Impression: No acute fracture or traumatic subluxation. Electronically signed by Miguel A Webster 10-26-2024 3:[address] 10/26/24 14:17 CT head without contrast History: Syncope Comparison: 08/23/2023 Technique: Using multidetector thin collimation helical acquisition technique, axial, coronal and sagittal CT images from the skull base to the vertex were obtained without intravenous contrast. Dose reduction techniques were achieved by using automatic exposure control and/or adjustment of mA and/or kV according to patient size and/or use of iterative reconstruction technique. Findings: No intracranial hemorrhage, mass-effect, or midline shift. The ventricles are proportionate to the cerebral sulci. The newberry to white matter differentiation of the cerebral hemispheres is preserved. The basal cisterns are patent. The visualized paranasal sinuses are clear. Mastoid air cells are clear. Impression: No acute intracranial pathology. Electronically signed by Miguel A Webster 10-26-2024 3:06 PM Discharge Plan Visit Data Chief Complaint: GI Assessment ED Provider: Amandeep Mckeon Discharge Problem: Acute GI bleeding, Severe anemia, Low back pain Discharge Instructions Interventions: ED Discharge Assessment Last Done: 10/26/24 18:25 Forms Stand Alone Forms: My [facility] [employer] Prescriptions Prescriptions: No Action Mirena 20 mcg/24 hours (5 yrs) 52 mg intrauterine device 1 device IU CONTINOUS Patient Comments: Placed: 10/18/2018 LOT: [id number] aripiprazole [Abilify] 2 mg tablet 2 mg PO DAILY lamotrigine 100 mg tablet 200 mg PO HS lorazepam 0.5 mg tablet 0.25 - 0.5 mg PO BID PRN (Reason: Anxiety/Nightmares) trazodone 50 mg tablet 50 mg PO HS PRN (Reason: Sleep) temazepam 22.5 mg capsule 22.5 mg PO HS PRN (Reason: Sleep) desvenlafaxine succinate 50 mg tablet extended release 24 hr 50 mg PO QAM Rx Instructions: Take w/ 25mg to equal 75mg once every morning desvenlafaxine succinate 25 mg tablet extended release 24 hr 25 mg PO QAM Rx Instructions: Take w/ 25mg to equal 75mg once every morning Referrals Referrals: Marifer Morrison MD [Primary Care Provider] -
[2024-10-26] MEDS: PANTOprazole 80 MG in DEXTROSE 5% 100 ML IV ONE (13:37)
[2024-10-26] MEDS: PANTOPRAZOLE BOLUS/DRIP IV STA (13:37)
[2024-10-26] MEDS: PANTOprazole 40 MG in DEXTROSE 5% MINI-B 100 ML IV SCH (14:15)
--- NOTE | 2024-10-26 14:15 | CT Scan Report ---
ABDOMEN AND PELVIS CT WITH IV CONTRAST CT DOSE: 765.16 mGy.cm HISTORY: Acute lower abdominal and back pain lower back pain, GI bleed, hx of duodenal switch TECHNIQUE: Multiaxial CT images of the abdomen and pelvis were performed following the IV administrat ion of 93 cc of Optiray, A dose lowering technique was utilized adhering to the principles of ALARA. COMPARISON STUDY: 10/20/2017 FINDINGS: Clear lung bases. No pneumatosis. Unremarkable spleen, pancreas and adrenal glands. Cholecy stectomy. Progressive dilation of the biliary tree with the common bile duct measuring 2.2 cm transve rsely, previously 1.5 cm. No obstructing biliary stone or lesion identified. Patency of the hepatic a nd portal veins. No liver lesion identified. Unremarkable kidneys. No hydronephrosis. Unremarkable urinary bladder. IUD in the uterus. 2.2 cm invo luting right ovarian follicle. Aorta and IVC are unremarkable. No lymphadenopathy. Emir-en-Y gastric bypass. Dilation of the jejunojejunal anastomosis without evidence of upstream obstruction. Moderate colonic fecal retention. Normal appendix. No acute fracture. Lumbar levoscoliosis. IMPRESSION: 1. No bowel obstruction or bowel wall thickening. 2. Cholecystectomy with progressive biliary ductal dilation compared to the study from 2018. Correlat e with serum bilirubin. 3. Prior Emir-en-Y gastric bypass 4. Probable constipation. 5. Involuting right ovarian follicle. ACT 112: Negative or not required by law. The above report was generated using voice recognition software. It may contain grammatical, syntax o r spelling errors. Electronically signed by: Nitish Pickering M.D. 10/26/2024 2:13 PM
[2024-10-26] MEDS ORDERED: SODIUM CHLORIDE 0.9% 100 ML IV PRN ×3 (14:17→18:47)
[2024-10-26] MEDS: SODIUM CHLORIDE 0.9% 500 ML IV ONE ×2 (14:30→15:39)
[2024-10-26 14:31] LABS: iSTAT Creatinine 0.6 mg/dl (0.6-1.3); iSTAT Hemoglobin 5.8 g/dl (12.0-16.0); iSTAT Ionized Calcium 1.06 mmol/l (1.12-1.32); iSTAT Potassium 4.4 mmol/L (3.3-5.0)
--- NOTE | 2024-10-26 15:07 | History & Physical Report ---
Date of Service October 26, 2024 Assessment & Plan (1) Acute GI bleeding: Plan: Acute GI bleed with acute blood loss anemia, unknown etiology - Admit to PCU - NPO - VS per unit protocol - Strict BR - CTAP w/o obvious source of bleed - Consult GI, Dr. Mathews, appreciate assistance - will require endoscopy prior to d/c - D/C Protonix gtt and transition to 40mg IV BID - Add Pepcid 20mg IV BID - Trend H&H as noted below - Continue mIVF (2) Acute blood loss anemia: Plan: Acute d/t GI bleed - Hgb on presentation 7.5, received 1.5L NSS - Following syncopal episode, repeat POC hgb 5.8 - Pt typed and crossmatched for 2 units of PRBCs - Trend H&H - Repeat H&H 1 hour following transfusion and again in AM (3) Syncope and collapse: Plan: Acute - Suspect related to profound anemia and hypovolemia - Bedrest - CTH and neck were WNL - D/c c-collar - PCU - Presyncopal again in ER with bp of 81/44, ordered another 500 cc bolus of NSS - Continue mIVF w/ NSS @ 100 ml/hr Plan Chronic medical problems: Bipolar disorder/Borderline personality disorder/depression/anxiety - continue abilify, desvenlafaxine, lamictal, lorazepam, temazepam, and trazodone Chemoppx for VTE prevention is contraindicated in setting of GI bleed with ABLA. SCDs to b/l LE. AM labs have been ordered. Updated Narciso via phone. Above plan of care has been d/w Dr. Hendrix. Further orders to be implemented as clinically warranted. History of Present Illness Chief Complaint: Rectal bleeding Primary Care Provider: Marifer Morrison MD Carlos Alberto is a 34 yo F with a pmhx of bipolar d/o, borderline personality disorder, depression and previous obesity s/p biliopancreatic diversion w/ duodenal switch procedure who presented to the ER today for evaluation of possible GI bleeding. She reportedly came in due to concern for rectal bleeding. She denied abd pain, nausea or vomiting. Her history though is presently limited initially when I went into the room she stated "hello person," followed by, "what the fuck just happened?" Report provided by the emergency department noted that she had a brief syncopal event when she went into the restroom to void. Her w/u in the ER demonstrated a significant anemia with a hgb of 7.5, initially en route to the ER she was mildly hypotensive but BP upon arrival was 93/77. She received 1L of NSS. Her HR and BP since have been stable >100 systolic and HR in the 80-90s. She was assisted back into bed by staff, placed a c-collar and ER physician has ordered a CT of her head and neck. She also underwent CTAP which was negative for any significant pathology which would account for her blood loss. She previously told the ER physician that typically takes NSAIDs about three times a day for arthritis. Following the syncopal episode, she was able to answer questions appropriately but couldn't recall the last event before she passed out. She was medicated in the ER with a bolus of Protonix 80mg IV x1 and then placed on a gtt, she has also received a dose of Pepcid 20mg IV x1. Case was d/w Dr. Mathews from who recommended NPO and admission. She has been referred to hospital medicine team for admission. Allergies Allergy/AdvReac Type Severity Reaction Status Date / Time pineapple Allergy Intermediate MOUTH Verified 10/26/24 12:21 SORES, CAN'T TASTE FOR A WHILE AFTER nickel Allergy Mild Skin Verified 10/26/24 12:21 IRRITATION Home Medications Medication Instructions Recorded Confirmed Type levonorgestrel 21 mcg/24 hr (up to 1 device intrauterine CONTINOUS 02/04/19 10/26/24 History 8 years) 52 mg intrauterine device (Mirena) lamotrigine 100 mg tablet 200 mg PO HS 09/25/19 10/26/24 History lorazepam 0.5 mg tablet 0.25 - 0.5 mg PO BID PRN 08/23/23 10/26/24 History Anxiety/Nightmares aripiprazole 2 mg tablet (Abilify) 2 mg PO DAILY 12/26/23 10/26/24 History desvenlafaxine succinate 25 mg 25 mg PO QAM 10/26/24 10/26/24 History tablet,extended release 24 hr desvenlafaxine succinate 50 mg 50 mg PO QAM 10/26/24 10/26/24 History tablet,extended release 24 hr temazepam 22.5 mg capsule 22.5 mg PO HS PRN Sleep 10/26/24 10/26/24 History trazodone 50 mg tablet 50 mg PO HS PRN Sleep 10/26/24 10/26/24 History Past Med/Surg History Problem List Syncope and collapse Acute blood loss anemia Low back pain (Acute) Severe anemia (Acute) Acute GI bleeding (Acute) Abnormal bruising Raynauds disease Binge eating (Acute) Bipolar I disorder, single manic episode (Acute) Borderline personality disorder (Acute) Chronic rhinitis (Acute) Contraceptive device, intrauterine (Acute) Depression (Acute) Hyperlipidemia (Acute) Medical History Pityriasis rosea Seborrheic keratosis Degenerative disc disease Bipolar disorder Anxiety and depression History of hypertension Gastric ulcer due to nonsteroidal antiinflammatory drug (NSAID) therapy Surgical History S/P abdominoplasty 04/22/19 Dr. Elizabet Paul abdominoplasty History of cholecystectomy Scenic teeth removed H/O elbow surgery LEFT ARM S/P biliopancreatic diversion with duodenal switch S/P gastric bypass Family History Uncle Brain cancer Father Colon cancer Mother Other cervical disc degeneration, cervicothoracic region Diabetes Gout Arthritis Uterine cancer Grandfather (Paternal) Gout Bipolar disorder Migraine Lung cancer Sister Migraine Denies family history of Ovarian cancer Prostate cancer Myocardial infarction Breast cancer Pancreatic adenocarcinoma Social History Smoking Status: Never smoker Second Hand Exposure: No; Do You Dip or Chew Tobacco: No; Tobacco Cessation Education Requested by Patient: No Hx Alcohol Use: No Hx Substance Use: No Preferred Language: Faroese Communication Ability: Effective Visual Impairment: No Limitations Hearing Ability: Normal Melt House Supervisor Required: No Beliefs That Will Affect Care: None marital status: Single Current Living Situation: Spouse current occupational status: employed Other Information That Helps Us Care for You: No Feels Safe at Home: Yes Safety Concerns: Feels Safe At This Time Childhood Exposure to Second-Hand Smoke: Yes Diet: regular Diet Comment: regular Dental Care, Regularly: Yes Physical Activity Frequency: 3-4 Times per Week Seatbelt Use: always Sunscreen Use: Yes Assistive Devices: None Review of Systems 2 Review of Systems: All systems reviewed and are unremarkable except as noted in HPI and below. Denies fever, chills, fatigue, headache, nasal congestion, sore throat, cough, chest pain, shortness of breath, palpitations, orthopnea, PND, abdominal pain, n/v/d, constipation, dysuria, hematuria, frequency, back pain, joint pain or swelling, easy bruising or bleeding, skin lesions or rashes. Physical Exam 2 Physical Exam: GENERAL: 34 yo well-nourished WF. No distress. EYES: EOMI. PERRLA. Anicteric. HENT: Moist mucous membranes. No cervical lymphadenopathy. LUNGS: Clear to auscultation bilaterally. No accessory muscle use. No W/R/R. CARDIOVASCULAR: Regular rate and rhythm. No M/G/R. No JVD. ABDOMEN: Soft, non-tender and non-distended. No palpable masses. Bowel sounds normoactive x 4 quad. EXTREMITIES: Lying flat, neck in c-collar. No LE edema. Peripheral pulses +2/4. NEUROLOGIC: A&O x3. No focal neurological deficits. CN II-XII grossly intact. PSYCHIATRIC: Cooperative. Appropriate mood and affect. SKIN: Generalized pallor noted. Warm, dry, intact. No rashes or lesions. Results & Data Results & Data Vital Signs (Past 12 Hours) Vital Signs Temp Pulse Resp BP Pulse Ox O2 Del Method 10/26/24 13:42 88 15 100 10/26/24 13:24 81 14 118/65 99 10/26/24 13:00 80 12 100 10/26/24 13:00 11710/26/24 13:00 117/64 10/26/24 13:00 11764 10/26/24 13:00 117/64 10/26/24 13:00 11710/26/24 13:00 11710/26/24 13:00 11710/26/24 13:00 11764 10/26/24 13:00 11764 10/26/24 13:00 11764 10/26/24 13:00 11710/26/24 13:00 11710/26/24 12:30 87 29 H 100 10/26/24 12:30 10/26/24 12:30 10/26/24 12:30 10/26/24 12:30 10/26/24 12:30 10/26/24 12:30 10/26/24 12:30 10/26/24 12:30 10/26/24 12:30 10/26/24 12:30 10/26/24 12:18 81 10/26/24 12:09 94 H 14 100 10/26/24 12:00 10/26/24 12:00 10/26/24 12:00 10/26/24 12:00 10/26/24 12:00 10/26/24 12:00 10/26/24 12:00 10/26/24 12:00 10/26/24 12:00 10/26/24 12:00 10/26/24 11:57 93 H 18 100 Room Air 10/26/24 11:47 125/75 10/26/24 11:38 36.9 C 87 19 93/77 L 93 Room Air 10/26/24 11:34 93/77 L 10/26/24 11:34 93/77 L Laboratory Results 10/26/24 11:59 10/26/24 11:59 Diagnostic Findings Abdomen/Pelvis CT 10/26/24 11:[address] WITH IV CONTRAST CT DOSE: 765.16 mGy.cm HISTORY: Acute lower abdominal and back pain lower back pain, GI bleed, hx of duodenal switch TECHNIQUE: Multiaxial CT images of the abdomen and pelvis were performed following the IV administration of 93 cc of Optiray, A dose lowering technique was utilized adhering to the principles of ALARA. COMPARISON STUDY: 10/20/2017 FINDINGS: Clear lung bases. No pneumatosis. Unremarkable spleen, pancreas and adrenal glands. Cholecystectomy. Progressive dilation of the biliary tree with the common bile duct measuring 2.2 cm transversely, previously 1.5 cm. No obstructing biliary stone or lesion identified. Patency of the hepatic and portal veins. No liver lesion identified. Unremarkable kidneys. No hydronephrosis. Unremarkable urinary bladder. IUD in the uterus. 2.2 cm involuting right ovarian follicle. Aorta and IVC are unremarkable. No lymphadenopathy. Emir-en-Y gastric bypass. Dilation of the jejunojejunal anastomosis without evidence of upstream obstruction. Moderate colonic fecal retention. Normal appendix. No acute fracture. Lumbar levoscoliosis. IMPRESSION: 1. No bowel obstruction or bowel wall thickening. 2. Cholecystectomy with progressive biliary ductal dilation compared to the study from 2018. Correlate with serum bilirubin. 3. Prior Emir-en-Y gastric bypass 4. Probable constipation. 5. Involuting right ovarian follicle. ACT 112: Negative or not required by law. The above report was generated using voice recognition software. It may contain grammatical, syntax or spelling errors. Electronically signed by: Nitish Pickering M.D. 10/26/2024 2:[address] 10/26/24 14:17 CT cervical spine without IV contrast History: Syncope Comparison: None Technique: Using multidetector thin collimation helical acquisition technique, axial, coronal and sagittal CT images through the cervical spine were obtained without intravenous contrast. Dose reduction techniques were achieved by using automatic exposure control and/or adjustment of mA and/or kV according to patient size and/or use of iterative reconstruction technique. Findings: The cervical vertebrae are normally aligned. Straightened cervical lordosis. No acute fracture or subluxation. No prevertebral edema. There are mild to moderate discogenic degenerative changes associated with small disc osteophyte complexes at C5-6 and C6-7. No abnormality of the paraspinous soft tissues. Impression: No acute fracture or traumatic subluxation. Electronically signed by Miguel A Webster 10-26-2024 3:[address] 10/26/24 14:17 CT head without contrast History: Syncope Comparison: 08/23/2023 Technique: Using multidetector thin collimation helical acquisition technique, axial, coronal and sagittal CT images from the skull base to the vertex were obtained without intravenous contrast. Dose reduction techniques were achieved by using automatic exposure control and/or adjustment of mA and/or kV according to patient size and/or use of iterative reconstruction technique. Findings: No intracranial hemorrhage, mass-effect, or midline shift. The ventricles are proportionate to the cerebral sulci. The newberry to white matter differentiation of the cerebral hemispheres is preserved. The basal cisterns are patent. The visualized paranasal sinuses are clear. Mastoid air cells are clear. Impression: No acute intracranial pathology. Electronically signed by Miguel A Webster 10-26-2024 3:06 PM Code Status & VTE Plan Code Status Full code Critical Care Time Critical Care Time: Yes Total Critical Care Time: 44 Plan is as discussed above. Please refer to orders for further planning. 48 minutes of critical care time spent in the management clinical coronation care of this patient today this critical care time spent independent of and in addition to any other time or critical care time any other practitioner today's date. Supervising Physician Co-Signing Physician Notes During face to face encounter, I obtained a history and physical examination, discussed plan of care with patient. I discussed plan of care with CLARENCE [facility] and [facility] and GI provider I reviewed above note and agree with it except for the following: Due to rapid drop of hemoglobin, patient will be admitted to the ICU. Patient will be going to the OR to get an Upper GI scope. Concern that patient has an anastomotic ulcer as she has history of gastric bypass. PG Care Time/CCT Total # of Minutes Spent Total Time Spent with Patient: Total time spent is greater than 50% in coordination of care (as documented) at patient's floor/unit and/or counseling patient: 85 minutes Critical Care Time: Yes Total Critical Care Time: 44 Coding Level of Care Code 79862 INT INP/OBS CARE 3/75MIN (25 - SIGNIFICANT, SEPARATELY IDENTIFIABLE ) Diagnoses Acute GI bleeding K92.2 Acute blood loss anemia D62 Syncope and collapse R55 Additional Codes Critical Care Time - Critical Care Time: Yes ([id number])
--- NOTE | 2024-10-26 15:17 | CT Scan Report ---
CT cervical spine without IV contrast History: Syncope Comparison: None Technique: Using multidetector thin collimation helical acquisition technique, axial, coronal and sagittal CT images through the cervical spine were obtained without intravenous contrast. Dose reduction techniques were achieved by using automatic exposure control and/or adjustment of mA and/or kV according to patient size and/or use of iterative reconstruction technique. Findings: The cervical vertebrae are normally aligned. Straightened cervical lordosis. No acute fracture or subluxation. No prevertebral edema. There are mild to moderate discogenic degenerative changes associated with small disc osteophyte complexes at C5-6 and C6-7. No abnormality of the paraspinous soft tissues. Impression: No acute fracture or traumatic subluxation. Electronically signed by Miguel A Webster 10-26-2024 3:17 PM
[2024-10-26] MEDS: CALCIUM GLUCONATE 1,000 MG/60 ML BAG IV SCH (17:38)
--- NOTE | 2024-10-26 17:49 | Gastrointestinal Consultation ---
Date of Consultation October 26, 2024 Assessment & Plan (1) Acute blood loss anemia: Suspect due to GI blood loss. Differential diagnosis includes anastomotic ulcer, peptic ulcer disease and NSAID induced gastropathy. In light of prior bypass surgery need to consider more distal small bowel enterostomy sites as a possible etiology. She has received 2 units of packed red blood cells presently hemodynamically stable. Will proceed with urgent endoscopy to assess possible upper GI source. History of Present Illness Reason for Consultation: GI bleed anemia History of Present Illness 1 day prior to presentation she felt lightheaded. This morning she had a bowel movement with dark blood. She presented to the emergency room for further evaluation. She occasionally takes nonsteroidal anti-inflammatory meds and took 2 or 3 of them yesterday. She denies any recent GI symptoms no nausea no vomiting. In the ER she was slightly hypotensive which responded to fluid resuscitation. Her hemoglobin on admit admission here was around 11 repeat was 7 and after syncopal episode it was 5.8. Despite the drop in hemoglobin she had no overt bleeding. This was in the setting of having received fluids during her ER visit. She has a history of a biliopancreatic bypass duodenal switch bariatric surgical procedure approximately 7 years ago with 100 pound weight loss. She had no significant postprocedure complications. She has no other significant past medical history except for treatment of depression. Allergies Allergy/AdvReac Type Severity Reaction Status Date / Time pineapple Allergy Intermediate MOUTH Verified 10/26/24 12:21 SORES, CAN'T TASTE FOR A WHILE AFTER nickel Allergy Mild Skin Verified 10/26/24 12:21 IRRITATION Home Medications Medication Instructions Recorded Confirmed Type levonorgestrel 21 mcg/24 hr (up to 1 device intrauterine CONTINOUS 02/04/19 10/26/24 History 8 years) 52 mg intrauterine device (Mirena) lamotrigine 100 mg tablet 200 mg PO HS 09/25/19 10/26/24 History lorazepam 0.5 mg tablet 0.25 - 0.5 mg PO BID PRN 08/23/23 10/26/24 History Anxiety/Nightmares aripiprazole 2 mg tablet (Abilify) 2 mg PO DAILY 12/26/23 10/26/24 History desvenlafaxine succinate 25 mg 25 mg PO QAM 10/26/24 10/26/24 History tablet,extended release 24 hr desvenlafaxine succinate 50 mg 50 mg PO QAM 10/26/24 10/26/24 History tablet,extended release 24 hr temazepam 22.5 mg capsule 22.5 mg PO HS PRN Sleep 10/26/24 10/26/24 History trazodone 50 mg tablet 50 mg PO HS PRN Sleep 10/26/24 10/26/24 History Patient History Medical History (Updated 10/26/24 @ 15:20 by Evelyne Ag PA-C) Pityriasis rosea Seborrheic keratosis Degenerative disc disease Bipolar disorder Anxiety and depression History of hypertension Gastric ulcer due to nonsteroidal antiinflammatory drug (NSAID) therapy Surgical History S/P abdominoplasty 04/22/19 Dr. Elizabet Paul abdominoplasty History of cholecystectomy [place] teeth removed H/O elbow surgery LEFT ARM S/P biliopancreatic diversion with duodenal switch S/P gastric bypass Family History Uncle Brain cancer Father Colon cancer Mother Other cervical disc degeneration, cervicothoracic region Diabetes Gout Arthritis Uterine cancer Grandfather (Paternal) Gout Bipolar disorder Migraine Lung cancer Sister Migraine Denies family history of Ovarian cancer Prostate cancer Myocardial infarction Breast cancer Pancreatic adenocarcinoma Social History Smoking Status: Unknown if ever smoked Second Hand Exposure: No; Do You Dip or Chew Tobacco: No; Hx Alcohol Use: No Hx Substance Use: No Preferred Language: Cymro Communication Ability: Effective Visual Impairment: No Limitations Hearing Ability: Normal Customs Entry Clerk Required: No Beliefs That Will Affect Care: None marital status: Single Current Living Situation: Spouse current occupational status: employed Feels Safe at Home: Yes Childhood Exposure to Second-Hand Smoke: Yes Diet: regular Diet Comment: regular Dental Care, Regularly: Yes Physical Activity Frequency: 3-4 Times per Week Seatbelt Use: always Sunscreen Use: Yes Assistive Devices: None Review of Systems Review of Systems: No fever No chills No SOB No CP No Abd pain Bloody bowel movements x 1 last 1 being this morning Recent lightheadedness and syncope Physical Exam Physical Exam: Eyes; anicteric HENT No masses Chest clear to A Cor S1, S2 physiologic Abd: softer nontender no masses Ext no edema Results & Data Vital Signs (Past 12 Hours) Vital Signs Temp Pulse Resp BP Pulse Ox O2 Del Method 10/26/24 17:09 37.1 C 90 22 112/69 100 10/26/24 16:54 36.8 C 84 19 108/63 100 10/26/24 16:45 36.9 C 83 19 119/55 L 100 10/26/24 16:44 36.9 C 75 19 119/55 L 100 10/26/24 16:35 36.9 C 70 18 105/50 L 100 10/26/24 16:30 105/50 L 10/26/24 16:27 87 23 89/35 L 100 10/26/24 16:24 89/35 L 10/26/24 16:20 36.9 C 83 14 89/53 L 99 10/26/24 16:15 37.1 C 76 18 100/54 L 99 10/26/24 16:12 86 23 100/51 L 100 10/26/24 16:00 84 20 99/54 L 100 10/26/24 16:00 99/54 L 10/26/24 16:00 99/54 L 10/26/24 16:00 99/54 L 10/26/24 16:00 99/54 L 10/26/24 16:00 99/54 L 10/26/24 16:00 37.0 C 78 18 99/54 L 100 10/26/24 15:52 103/53 L 10/26/24 15:52 103/53 L 10/26/24 15:45 80 16 94/43 L 100 10/26/24 15:45 37.0 C 78 18 94/43 L 100 10/26/24 15:45 37.0 C 78 18 94/43 L 100 10/26/24 15:45 37.0 C 78 18 94/43 L 100 10/26/24 15:45 37.0 C 79 18 94/59 L 100 10/26/24 15:45 37.0 C 88 19 94/56 L 100 10/26/24 15:45 36.0 C L 78 18 94/43 L 100 10/26/24 15:37 112/58 L 10/26/24 15:37 112/58 L 10/26/24 15:37 112/58 L 10/26/24 15:37 112/58 L 10/26/24 15:37 112/58 L 10/26/24 15:37 112/58 L 10/26/24 15:37 112/58 L 10/26/24 15:37 112/58 L 10/26/24 15:36 83 13 100 10/26/24 15:30 84 17 100 10/26/24 15:30 37.0 C 78 19 107/57 L 100 10/26/24 15:20 113/60 10/26/24 15:00 106 H 16 100 10/26/24 15:00 126/75 10/26/24 15:00 126/75 10/26/24 15:00 126/75 10/26/24 14:36 101 H 23 79 L 10/26/24 14:30 138/71 10/26/24 14:30 138/71 10/26/24 14:30 138/71 10/26/24 14:30 138/71 10/26/24 14:30 138/71 10/26/24 14:30 138/71 10/26/24 14:30 138/71 10/26/24 14:30 138/71 10/26/24 14:30 138/71 10/26/24 14:10 142/77 H 10/26/24 14:10 142/77 H 10/26/24 14:00 116/66 10/26/24 13:57 94 H 18 100 10/26/24 13:42 88 15 100 10/26/24 13:24 81 14 118/65 99 10/26/24 13:00 80 12 100 10/26/24 13:00 117/64 10/26/24 13:00 117/64 10/26/24 13:00 117/64 10/26/24 13:00 117/64 10/26/24 13:00 117/64 10/26/24 13:00 117/64 10/26/24 13:00 117/64 10/26/24 13:00 117/64 10/26/24 13:00 117/64 10/26/24 13:00 117/64 10/26/24 13:00 117/64 10/26/24 13:00 10/26/24 12:30 87 29 H 100 10/26/24 12:30 10/26/24 12:30 10/26/24 12:30 10/26/24 12:30 10/26/24 12:30 10/26/24 12:30 10/26/24 12:30 10/26/24 12:30 10/26/24 12:30 10/26/24 12:30 10/26/24 12:18 81 10/26/24 12:09 94 H 14 100 10/26/24 12:00 10/26/24 12:00 10/26/24 12:00 10/26/24 12:00 10/26/24 12:00 10/26/24 12:00 10/26/24 12:00 10/26/24 12:00 10/26/24 12:00 10/26/24 12:00 10/26/24 11:57 93 H 18 100 Room Air 10/26/24 11:47 125/75 10/26/24 11:38 36.9 C 87 19 93/77 L 93 Room Air 10/26/24 11:34 93/77 L 10/26/24 11:34 93/77 L Laboratory Results Laboratory Results - last 48 hr 10/26/24 10/26/24 10/26/24 11:57 11:59 12:03 WBC 11.96 H RBC 2.73 L Hgb 7.5 L POC Hgb Hct 23.5 L POC Hct MCV 86.1 MCH 27.5 MCHC 31.9 L RDW Std Deviation 47.1 H RDW Coeff of Edi 15.0 H Plt Count 219 MPV 10.2 Immature Gran % (Auto) 1.3 Neut % (Auto) 77.1 Lymph % (Auto) 17.8 [place] % (Auto) 3.6 Eos % (Auto) 0.0 Baso % (Auto) 0.2 Neut # (Auto) 9.22 H Lymph # (Auto) 2.13 [place] # (Auto) 0.43 Eos # (Auto) 0.00 Baso # (Auto) 0.02 Immature Gran # (Auto) 0.16 RBC Morphology Unremarkable PT 11.4 INR 1.1 APTT 24 PTT Ratio 0.9 POC Sodium Sodium 137 POC Potassium Potassium 4.7 POC Chloride Chloride 109 H Carbon Dioxide 25 POC Total CO2 Anion Gap 3 POC Anion Gap POC BUN BUN 27 H Creatinine 0.66 POC Creatinine Est Cr Clr Drug Dosing 129.7 eGFR 116.52 BUN/Creatinine Ratio 40.9 H Glucose 114 H POC Glucose (other) Calcium 7.8 L POC Ioniz Calcium Sofie Total Bilirubin 0.2 AST 16 ALT 15 Alkaline Phosphatase 33 L Total Protein 5.1 L Albumin 3.4 Globulin 1.7 L Albumin/Globulin Ratio 2.0 HCG, Qual Negative POC Stool Occult Blood Positive A Blood Type A Positive Blood Type Recheck Antibody Screen NEGATIVE Crossmatch See Detail 10/26/24 10/26/24 14:17 14:31 WBC RBC Hgb POC Hgb 5.8 L* Hct POC Hct 17 L* MCV MCH MCHC RDW Std Deviation RDW Coeff of Edi Plt Count MPV Immature Gran % (Auto) Neut % (Auto) Lymph % (Auto) [place] % (Auto) Eos % (Auto) Baso % (Auto) Neut # (Auto) Lymph # (Auto) [place] # (Auto) Eos # (Auto) Baso # (Auto) Immature Gran # (Auto) RBC Morphology PT INR APTT PTT Ratio POC Sodium 140 Sodium POC Potassium 4.4 Potassium POC Chloride 106 Chloride Carbon Dioxide POC Total CO2 18 L Anion Gap POC Anion Gap 21.0 POC BUN 24 H BUN Creatinine POC Creatinine 0.6 Est Cr Clr Drug Dosing eGFR BUN/Creatinine Ratio Glucose POC Glucose (other) 121 H Calcium POC Ioniz Calcium Sofie 1.06 L Total Bilirubin AST ALT Alkaline Phosphatase Total Protein Albumin Globulin Albumin/Globulin Ratio HCG, Qual POC Stool Occult Blood Blood Type Blood Type Recheck A Positive Antibody Screen Crossmatch Diagnostic Findings Abdomen/Pelvis CT 10/26/24 11:[address] WITH IV CONTRAST CT DOSE: 765.16 mGy.cm HISTORY: Acute lower abdominal and back pain lower back pain, GI bleed, hx of duodenal switch TECHNIQUE: Multiaxial CT images of the abdomen and pelvis were performed following the IV administration of 93 cc of Optiray, A dose lowering technique was utilized adhering to the principles of ALARA. COMPARISON STUDY: 10/20/2017 FINDINGS: Clear lung bases. No pneumatosis. Unremarkable spleen, pancreas and adrenal glands. Cholecystectomy. Progressive dilation of the biliary tree with the common bile duct measuring 2.2 cm transversely, previously 1.5 cm. No obstructing biliary stone or lesion identified. Patency of the hepatic and portal veins. No liver lesion identified. Unremarkable kidneys. No hydronephrosis. Unremarkable urinary bladder. IUD in the uterus. 2.2 cm involuting right ovarian follicle. Aorta and IVC are unremarkable. No lymphadenopathy. Emir-en-Y gastric bypass. Dilation of the jejunojejunal anastomosis without evidence of upstream obstruction. Moderate colonic fecal retention. Normal appendix. No acute fracture. Lumbar levoscoliosis. IMPRESSION: 1. No bowel obstruction or bowel wall thickening. 2. Cholecystectomy with progressive biliary ductal dilation compared to the study from 2018. Correlate with serum bilirubin. 3. Prior Emir-en-Y gastric bypass 4. Probable constipation. 5. Involuting right ovarian follicle. ACT 112: Negative or not required by law. The above report was generated using voice recognition software. It may contain grammatical, syntax or spelling errors. Electronically signed by: Nitish Pickering M.D. 10/26/2024 2:[address] 10/26/24 14:17 CT cervical spine without IV contrast History: Syncope Comparison: None Technique: Using multidetector thin collimation helical acquisition technique, axial, coronal and sagittal CT images through the cervical spine were obtained without intravenous contrast. Dose reduction techniques were achieved by using automatic exposure control and/or adjustment of mA and/or kV according to patient size and/or use of iterative reconstruction technique. Findings: The cervical vertebrae are normally aligned. Straightened cervical lordosis. No acute fracture or subluxation. No prevertebral edema. There are mild to moderate discogenic degenerative changes associated with small disc osteophyte complexes at C5-6 and C6-7. No abnormality of the paraspinous soft tissues. Impression: No acute fracture or traumatic subluxation. Electronically signed by Miguel A Webster 10-26-2024 3:[address] 10/26/24 14:17 CT head without contrast History: Syncope Comparison: 08/23/2023 Technique: Using multidetector thin collimation helical acquisition technique, axial, coronal and sagittal CT images from the skull base to the vertex were obtained without intravenous contrast. Dose reduction techniques were achieved by using automatic exposure control and/or adjustment of mA and/or kV according to patient size and/or use of iterative reconstruction technique. Findings: No intracranial hemorrhage, mass-effect, or midline shift. The ventricles are proportionate to the cerebral sulci. The newberry to white matter differentiation of the cerebral hemispheres is preserved. The basal cisterns are patent. The visualized paranasal sinuses are clear. Mastoid air cells are clear. Impression: No acute intracranial pathology. Electronically signed by Miguel A Webster 10-26-2024 3:06 PM PG Care Time/CCT Total # of Minutes Spent Total Time Spent with Patient: Total time spent is greater than 50% in coordination of care (as documented) at patient's floor/unit and/or counseling patient: Coding Level of Care Code 88460 INT INP/OBS CARE 3/75MIN Diagnoses Acute blood loss anemia D62
[2024-10-26] MEDS ORDERED: SUCCINYLCHOLINE 100MG/5ML SYR IV ONE (18:14)
[2024-10-26] MEDS ORDERED: PROPOFOL IV EMULSION 10 MG/ML 20 ML VIAL IV ONE (18:14)
[2024-10-26] MEDS ORDERED: fentaNYL citrate PF 100 MCG/2 ML VIAL ONE (18:15)
[2024-10-26 18:45] LABS: Fibrinogen 110 mg/dl (184-400)
[2024-10-26] MEDS ORDERED: PROMETHAZINE HCL 6.25 MG in SODIUM CHLORIDE 0.9% 50 ML IV PRN (18:47)
[2024-10-26] MEDS ORDERED: ePHEDrine sulfate 50 MG/ML AMP IV PRN (18:47)
[2024-10-26] MEDS ORDERED: fentaNYL citrate PF 100 MCG/2 ML VIAL IV PRN (18:47)
[2024-10-26] MEDS ORDERED: ONDANSETRON INJ 2 MG/ML 2 ML VIAL IV PRN ×2 (18:47→19:55)
[2024-10-26] MEDS ORDERED: ATROPINE SULFATE 0.1 MG/ML 10ML SYR IV PRN (18:47)
--- NOTE | 2024-10-26 18:51 | Anesthesiology Consultation ---
Date of Service October 26, 2024 Assessment & Plan ASA [id number] Proposed Anesthesia Anesthesia Type: General Risk / Benefits Reviewed With: PT / POA / Parent / Guardian, Accepts Plan and Informed Consent Obtained History Surgery Operation Date: 10/26/24 19:00 Proposed Procedures p EGD Hemostasis - Kasi Mathews MD Height/Weight Height: 5 ft 8 in Weight: 78.4 kg Allergies Allergy/AdvReac Type Severity Reaction Status Date / Time pineapple Allergy Intermediate MOUTH Verified 10/26/24 12:21 SORES, CAN'T TASTE FOR A WHILE AFTER nickel Allergy Mild Skin Verified 10/26/24 12:21 IRRITATION Medications Home Medications Medication Instructions Recorded Confirmed Last Taken levonorgestrel 21 mcg/24 hr (up to 1 device intrauterine CONTINOUS 02/04/19 10/26/24 Unknown 8 years) 52 mg intrauterine device (Mirena) lamotrigine 100 mg tablet 200 mg PO HS 09/25/19 10/26/24 10/25/24 lorazepam 0.5 mg tablet 0.25 - 0.5 mg PO BID PRN 08/23/23 10/26/24 10/25/24 Anxiety/Nightmares aripiprazole 2 mg tablet (Abilify) 2 mg PO DAILY 12/26/23 10/26/24 10/25/24 desvenlafaxine succinate 25 mg 25 mg PO QAM 10/26/24 10/26/24 10/25/24 tablet,extended release 24 hr desvenlafaxine succinate 50 mg 50 mg PO QAM 10/26/24 10/26/24 10/25/24 tablet,extended release 24 hr temazepam 22.5 mg capsule 22.5 mg PO HS PRN Sleep 10/26/24 10/26/24 10/25/24 trazodone 50 mg tablet 50 mg PO HS PRN Sleep 10/26/24 10/26/24 10/25/24 Active Medications Generic Name Dose Route Start Last Admin Trade Name Freq PRN Reason Stop Dose Admin Pantoprazole Sodium 40 mg/ 100 mls @ 20 mls/hr 10/26/24 13:00 10/26/24 14:15 Dextrose IV 11/25/24 12:59 8 mg/hr Q5H JUNE 20 mls/hr Administration 8 MG/HR NPO Date Last Intake of Fluids: 10/26/24 Time Last Intake of Fluids: 08:00 Date Last Intake of Solids: 10/26/24 Time Last Intake of Solids: 08:00 Past Medical History Medical History Pityriasis rosea Seborrheic keratosis Degenerative disc disease Bipolar disorder Anxiety and depression History of hypertension Gastric ulcer due to nonsteroidal antiinflammatory drug (NSAID) therapy Exercise / Class Metabolic Activity II 4-5 Yardwork/Stairs/Walk up hill Past Family History Family History Uncle Brain cancer Father Colon cancer Mother Other cervical disc degeneration, cervicothoracic region Diabetes Gout Arthritis Uterine cancer Grandfather (Paternal) Gout Bipolar disorder Migraine Lung cancer Sister Migraine Denies family history of Ovarian cancer Prostate cancer Myocardial infarction Breast cancer Pancreatic adenocarcinoma Past Surgical History Surgical History S/P abdominoplasty 04/22/19 Dr. Elizabet Paul abdominoplasty History of cholecystectomy [place] teeth removed H/O elbow surgery LEFT ARM S/P biliopancreatic diversion with duodenal switch S/P gastric bypass Past Anesthesia History No Hx of Anesthesia Complications and No Family Hx of Anesthesia Complications History of PONV No Hx of PONV and No Hx of Motion Sickness Social History Smoking Status: Unknown if ever smoked Do You Dip or Chew Tobacco: No Hx Alcohol Use: No Hx Substance Use: No substance use type: does not use Review of Systems denies fever/cough/ colds/ chest pain/ SOB/ CIARA denies CIARA Physical Exam Vital Signs Last Vital Signs Temp 37.1 C 10/26/24 17:49 Pulse 81 10/26/24 17:49 Resp 19 10/26/24 17:49 BP 118/57 L 10/26/24 17:49 Pulse Ox 100 10/26/24 17:49 O2 Del Method Room Air 10/26/24 11:57 ENMT Mouth: no TMJ abnormality and no dentition abnormality Thyromental Distance: > or= 3.5 Finger Breadths Mallampati Class: II Neck neck extension not limited Respiratory normal respiratory effort; no respiratory distress Auscultation: lungs clear to auscultation bilaterally Cardiovascular Rate/Rhythm: regular rate and regular rhythm Neurologic moves all extremities Psychiatric Orientation: alert and oriented x 3 Testing Laboratory Results 10/26/24 11:59 10/26/24 11:59 PT 11.4 Seconds (9.0-12.0) 10/26/24 11:59 INR 1.1 (0.9-1.1) 10/26/24 11:59 APTT 24 Seconds (21-31) 10/26/24 11:59 Blood Type A Positive 10/26/24 11:59 Antibody Screen NEGATIVE 10/26/24 11:59 10/26/24 14:17 POC Glucose (other) 121 H
[2024-10-26] MEDS ORDERED: DEXAMETHASONE SOD INJ 4 MG/ML VIAL ONE (19:06)
[2024-10-26] MEDS ORDERED: ONDANSETRON INJ 2 MG/ML 2 ML VIAL ONE (19:06)
--- NOTE | 2024-10-26 19:24 | GI REPORT ---
[facility] Patient: RAYNE HANDY : 1990 Sex at : Female Age: 34 Years Procedure: Upper GI endoscopy Date: 10/26/2024 Attending Physician: Kasi Mathews MD Referring MD: Referred Self Indications: - Suspected upper gastrointestinal bleeding Medications: - Monitored Anesthesia Care - General Anesthesia - See the Anesthesia note for documentation of the administered medications Complications: - No immediate complications. Estimated Blood Loss: - Estimated blood loss: None. Procedure: - Prior to the procedure, a History and Physical was performed, and patient medications and allergies were reviewed. The patient's tolerance of previous anesthesia was also reviewed. The risks and benefits of the procedure and the sedation options and risks were discussed with the patient. All questions were answered, and informed consent was obtained. [Anticoagulant Agents] [Days Prior to Procedure]. [ASA Grade]. After reviewing the risks and benefits, the patient was deemed in satisfactory condition to undergo the procedure. - The egd scope was introduced through the mouth and advanced to the jejunum. - The upper GI endoscopy was accomplished without difficulty. - The patient tolerated the procedure well. Findings: - The examined esophagus was normal. - Evidence of a duodenal switch were found in the gastric antrum and in the pylorus. This was characterized by healthy appearing mucosa. - The examined jejunum was normal. The jejunal pyloric anastomosis was intact and healthy. Impression: - Normal esophagus. - A duodenal switch was found, characterized by healthy appearing mucosa. - Normal examined jejunum. - No specimens collected. No UGI source of bleeding was identified. Recommendation: - Resume previous diet. - Patient has a contact number available for emergencies. The signs and symptoms of potential delayed complications were discussed with the patient. Return to normal activities tomorrow. Written discharge instructions were provided to the patient. Procedure Code(s): - 96977, Esophagogastroduodenoscopy, flexible, transoral; diagnostic, including collection of specimen(s) by brushing or washing, when performed (separate procedure) Diagnosis Code(s): - Z98.84, Bariatric surgery status CPT(R) - 2022 copyright [employer]. All Rights Reserved. The CPT codes, CCI edits and ICD codes generated are intended as suggestions and were generated based on input data. These codes are preliminary and upon landscape account manager review may be revised to meet current compliance and payer requirements. The provider is responsible for the final determination of appropriate codes, and modifiers. Kasi Mathews MD This document has been electronically signed. Note Initiated:10/26/2024 Note Completed:10/26/2024 7:23 PM [email or web address]\Results\LIVE\[id number]
--- NOTE | 2024-10-26 19:45 | Anesthesiology Progress Note ---
Date of Service October 26, 2024 Anesthesia Post Procedure Vital Signs Vital Signs: Temp Pulse Pulse Resp BP BP Pulse Ox 10/26/24 19:39 36.9 C 76 18 122/66 100 10/26/24 19:29 36.6 C 80 18 103/83 100 10/26/24 17:49 37.1 C 81 19 118/57 L 100 10/26/24 17:45 94 H 15 10/26/24 17:39 37.3 C 78 19 126/68 100 10/26/24 17:36 85 15 100 10/26/24 17:30 109/68 10/26/24 17:30 109/68 10/26/24 17:30 109/68 10/26/24 17:30 109/68 10/26/24 17:30 109/68 10/26/24 17:30 109/68 10/26/24 17:21 78 20 100 10/26/24 17:20 118/57 L 10/26/24 17:20 118/57 L 10/26/24 17:20 118/57 L 10/26/24 17:20 118/57 L 10/26/24 17:15 108/63 10/26/24 17:09 37.1 C 90 22 112/69 100 10/26/24 17:00 112/69 10/26/24 16:54 36.8 C 84 19 108/63 100 10/26/24 16:45 119/55 L 10/26/24 16:45 119/55 L 10/26/24 16:45 119/55 L 10/26/24 16:45 119/55 L 10/26/24 16:45 119/55 L 10/26/24 16:45 119/55 L 10/26/24 16:45 119/55 L 10/26/24 16:45 36.9 C 83 19 119/55 L 100 10/26/24 16:44 36.9 C 75 19 119/55 L 100 10/26/24 16:42 85 18 100 10/26/24 16:35 36.9 C 70 18 105/50 L 100 10/26/24 16:30 105/50 L 10/26/24 16:30 105/50 L 10/26/24 16:30 105/50 L 10/26/24 16:30 105/50 L 10/26/24 16:30 105/50 L 10/26/24 16:30 105/50 L 10/26/24 16:27 87 23 89/35 L 100 10/26/24 16:24 89/35 L 10/26/24 16:20 36.9 C 83 14 89/53 L 99 10/26/24 16:15 37.1 C 76 18 100/54 L 99 10/26/24 16:12 86 23 100/51 L 100 10/26/24 16:00 84 20 99/54 L 100 10/26/24 16:00 99/54 L 10/26/24 16:00 99/54 L 10/26/24 16:00 99/54 L 10/26/24 16:00 99/54 L 10/26/24 16:00 99/54 L 10/26/24 16:00 37.0 C 78 18 99/54 L 100 10/26/24 15:52 103/53 L 10/26/24 15:52 103/53 L 10/26/24 15:45 80 16 94/43 L 100 10/26/24 15:45 37.0 C 78 18 94/43 L 100 10/26/24 15:45 37.0 C 78 18 94/43 L 100 10/26/24 15:45 37.0 C 78 18 94/43 L 100 10/26/24 15:45 37.0 C 79 18 94/59 L 100 10/26/24 15:45 37.0 C 88 19 94/56 L 100 10/26/24 15:45 36.0 C L 78 18 94/43 L 100 10/26/24 15:37 112/58 L 10/26/24 15:37 112/58 L 10/26/24 15:37 112/58 L 10/26/24 15:37 112/58 L 10/26/24 15:37 112/58 L 10/26/24 15:37 112/58 L 10/26/24 15:37 112/58 L 10/26/24 15:37 112/58 L 10/26/24 15:36 83 13 100 10/26/24 15:30 84 17 100 10/26/24 15:30 37.0 C 78 19 107/57 L 100 10/26/24 15:20 113/60 10/26/24 15:00 106 H 16 100 10/26/24 15:00 126/75 10/26/24 15:00 126/75 10/26/24 15:00 126/75 10/26/24 14:36 101 H 23 79 L 10/26/24 14:30 138/71 10/26/24 14:30 138/71 10/26/24 14:30 138/71 10/26/24 14:30 138/71 10/26/24 14:30 138/71 10/26/24 14:30 138/71 10/26/24 14:30 138/71 10/26/24 14:30 138/71 10/26/24 14:30 138/71 10/26/24 14:10 142/77 H 10/26/24 14:10 142/77 H 10/26/24 14:00 116/66 10/26/24 13:57 94 H 18 100 10/26/24 13:42 88 15 100 10/26/24 13:24 81 14 118/65 99 10/26/24 13:00 80 12 100 10/26/24 13:00 117/64 10/26/24 13:00 117/64 10/26/24 13:00 117/64 10/26/24 13:00 117/64 10/26/24 13:00 117/64 10/26/24 13:00 117/64 10/26/24 13:00 117/64 10/26/24 13:00 117/64 10/26/24 13:00 117/64 10/26/24 13:00 117/64 10/26/24 13:00 117/64 10/26/24 13:00 117/64 10/26/24 12:30 87 29 H 100 10/26/24 12:30 121/62 05 12:30 121/62 05 12:30 121/62 05 12:30 121/62 05 12:30 121/62 05 12:30 121/62 10/26/24 12:30 121/62 05 12:30 121/62 05 12:30 121/62 05 12:30 121/62 10/26/24 12:18 81 04/0525 12:09 94 H 14 100 10/26/24 12:00 10/26/24 12:00 10/26/24 12:00 10/26/24 12:00 10/26/24 12:00 10/26/24 12:00 10/26/24 12:00 10/26/24 12:00 10/26/24 12:00 10/26/24 12:00 10/26/24 11:57 93 H 18 100 10/26/24 11:47 125/75 10/26/24 11:38 36.9 C 87 19 93/77 L 93 10/26/24 11:34 93/77 L 10/26/24 11:34 93/77 L O2 Del Method 10/26/24 19:39 Room Air 10/26/24 19:29 Room Air 10/26/24 17:49 10/26/24 17:45 10/26/24 17:39 10/26/24 17:36 10/26/24 17:30 10/26/24 17:30 10/26/24 17:30 10/26/24 17:30 10/26/24 17:30 10/26/24 17:30 10/26/24 17:21 10/26/24 17:20 10/26/24 17:20 10/26/24 17:20 10/26/24 17:20 10/26/24 17:15 10/26/24 17:09 10/26/24 17:00 10/26/24 16:54 10/26/24 16:45 10/26/24 16:45 10/26/24 16:45 10/26/24 16:45 10/26/24 16:45 10/26/24 16:45 10/26/24 16:45 10/26/24 16:45 10/26/24 16:44 10/26/24 16:42 10/26/24 16:35 10/26/24 16:30 10/26/24 16:30 10/26/24 16:30 10/26/24 16:30 10/26/24 16:30 10/26/24 16:30 10/26/24 16:27 10/26/24 16:24 10/26/24 16:20 10/26/24 16:15 10/26/24 16:12 10/26/24 16:00 10/26/24 16:00 10/26/24 16:00 10/26/24 16:00 10/26/24 16:00 10/26/24 16:00 10/26/24 16:00 10/26/24 15:52 10/26/24 15:52 10/26/24 15:45 10/26/24 15:45 10/26/24 15:45 10/26/24 15:45 10/26/24 15:45 10/26/24 15:45 10/26/24 15:45 10/26/24 15:37 10/26/24 15:37 10/26/24 15:37 10/26/24 15:37 10/26/24 15:37 10/26/24 15:37 10/26/24 15:37 10/26/24 15:37 10/26/24 15:36 10/26/24 15:30 10/26/24 15:30 10/26/24 15:20 10/26/24 15:00 10/26/24 15:00 10/26/24 15:00 10/26/24 15:00 10/26/24 14:36 10/26/24 14:30 10/26/24 14:30 10/26/24 14:30 10/26/24 14:30 10/26/24 14:30 10/26/24 14:30 10/26/24 14:30 10/26/24 14:30 10/26/24 14:30 10/26/24 14:10 10/26/24 14:10 10/26/24 14:00 10/26/24 13:57 10/26/24 13:42 10/26/24 13:24 10/26/24 13:00 10/26/24 13:00 10/26/24 13:00 10/26/24 13:00 10/26/24 13:00 10/26/24 13:00 10/26/24 13:00 10/26/24 13:00 10/26/24 13:00 10/26/24 13:00 10/26/24 13:00 10/26/24 13:00 10/26/24 13:00 10/26/24 12:30 10/26/24 12:30 10/26/24 12:30 10/26/24 12:30 10/26/24 12:30 10/26/24 12:30 10/26/24 12:30 10/26/24 12:30 10/26/24 12:30 10/26/24 12:30 10/26/24 12:30 10/26/24 12:18 10/26/24 12:09 10/26/24 12:00 10/26/24 12:00 10/26/24 12:00 10/26/24 12:00 10/26/24 12:00 10/26/24 12:00 10/26/24 12:00 10/26/24 12:00 10/26/24 12:00 10/26/24 12:00 10/26/24 11:57 Room Air 10/26/24 11:47 10/26/24 11:38 Room Air 10/26/24 11:34 10/26/24 11:34 Transfer of Care Handoff Completed per policy Notes Mental Status: alert / awake / arousable Patient Amnestic to Procedure: Yes Nausea / Vomiting: adequately controlled Pain: adequately controlled Airway Patency, RR, SpO2: stable & adequate BP & HR: stable & adequate Hydration State: stable & adequate Anesthetic Complications: no major complications apparent and Pt Satisfied with anesthetic care
--- NOTE | 2024-10-26 19:49 | Critical Care Consultation ---
Date of Consultation October 26, 2024 Assessment & Plan (1) Acute blood loss anemia: Plan Reason Critically Ill: 34 YOF presents for concern of acute blood loss secondary to UGIB associated with syncope and collapse in the ER, s/p urgent/emergent Endoscopy by GI with no evidence at this time of acute bleeding. To the ICU for continued hemodynamic monitoring and resuscitation. Neuro - No acute needs CAM ICU: NEGATIVE - CT c-spine and head performed following collapse in the ER- c-spine precautions removed while in ER- imaging without acute fracture - CT head for the same- no acute hemorrhage or hematoma noted - follow nuerological exam- for possible DASH- CT head non-con for any neurological changes. Cardiac - Shock associated with syncope and collapse, acute blood loss anemia - Concern for acute blood loss secondary to UGIB associated with syncope and collapse with drop in HGB levels - Patient has received 2 u PRBC, 1 GM calcium gluconate - EGD- with no acute evidence of upper GI bleeding - COAGS- with normal PT/PTT/INR - Fibrinogen low at 110- will replace if return of active bleeding or hemodynamics unstable - provide 1 more gram of calcium gluconate - If re-bleeding occurs or hemodynamics change, will obtain CTA of the abd/pelvis and re-discuss options with GI - Continue PPI infusion for tonight or transition to BID PPI dosing - Maintain 2 large bore 18g or larger IV access - Hold any antihypertensives until hemodynamics proven stable. Respiratory - No acute needs - wean oxygen as able GI - As above, hx of julienne en y gastric bypass - NPO RENAL/LYTES - No acute needs - replete electrolytes as needed per ICU electrolyte protocol - no acute needs ENDO - No acute needs - ICU hyper/hypoglycemic protocol HEME - acute blood loss anemia - As above - follow HGB q6 hours - ID - No concern at this time for acute infective process or septic shock LINES/IV ACCESS - PIV Continue use of these lines DVT PROPHYLAXIS - SCDS, chemoprophylaxis on hold until acute bleeding is ruled out and stable DISPO: ICU until hemodynamics and HGB levels are proven stable. I have personally spent 40 minutes of critical care time in the direct management of this patient. This is a life/limb threatening event. This includes time spent evaluating patient, direct bedside care, chart review, placing orders, interpretation of diagnostic studies, discussion with consultants, patient, and family members, as well as other required patient management activities. This time is exclusive of all separately billable procedures, and teaching time and separate from and in addition to any other critical care service time. Thank you for allowing us to participate in the care of this patient. Please refer to my attending physician's documentation for any further recommendations. History of Present Illness Reason for Consultation: GI bleed Requesting Physician: Cyrus Hendrix Attending Physician: Lazaro Hendrix History of Present Illness 34 YOF presented to the ER for complaints of back pain and dark bowel movements x 1 day. She was noted to be anemic and while preparing for admission, she had a syncopal episode with drop in BP as well as HGB levels. She was urgently given 2 units of PRBC and underwent urgent endoscopy evaluation by GI. Patient is now to the ICU following EGD. She is awake, alert, with normal HR and blood pressure, requiring no vasoactive medications at this time. Patient does have a history of gastric bypass ~ 7 years ago and did endorse increase in NSAID use. At this time will follow hemodynamics as well as HGB levels and coags through this evening. If any change or concern for acute bleeding will obtain a CTA of the abdomen/pelvis and further discuss with GI. Transfuse as indicated for active bleeding or unstable hemodynamics. CODE: FULL Allergies Allergy/AdvReac Type Severity Reaction Status Date / Time pineapple Allergy Intermediate MOUTH Verified 10/26/24 12:21 SORES, CAN'T TASTE FOR A WHILE AFTER nickel Allergy Mild Skin Verified 10/26/24 12:21 IRRITATION Home Medications Medication Instructions Recorded Confirmed Type levonorgestrel 21 mcg/24 hr (up to 1 device intrauterine CONTINOUS 02/04/19 10/26/24 History 8 years) 52 mg intrauterine device (Mirena) lamotrigine 100 mg tablet 200 mg PO HS 09/25/19 10/26/24 History lorazepam 0.5 mg tablet 0.25 - 0.5 mg PO BID PRN 08/23/23 10/26/24 History Anxiety/Nightmares aripiprazole 2 mg tablet (Abilify) 2 mg PO DAILY 12/26/23 10/26/24 History desvenlafaxine succinate 25 mg 25 mg PO QAM 10/26/24 10/26/24 History tablet,extended release 24 hr desvenlafaxine succinate 50 mg 50 mg PO QAM 10/26/24 10/26/24 History tablet,extended release 24 hr temazepam 22.5 mg capsule 22.5 mg PO HS PRN Sleep 10/26/24 10/26/24 History trazodone 50 mg tablet 50 mg PO HS PRN Sleep 10/26/24 10/26/24 History Patient History Medical History Pityriasis rosea Seborrheic keratosis Degenerative disc disease Bipolar disorder Anxiety and depression History of hypertension Gastric ulcer due to nonsteroidal antiinflammatory drug (NSAID) therapy Surgical History S/P abdominoplasty 04/22/19 Dr. Elizabet Paul abdominoplasty History of cholecystectomy [place] teeth removed H/O elbow surgery LEFT ARM S/P biliopancreatic diversion with duodenal switch S/P gastric bypass Family History Uncle Brain cancer Father Colon cancer Mother Other cervical disc degeneration, cervicothoracic region Diabetes Gout Arthritis Uterine cancer Grandfather (Paternal) Gout Bipolar disorder Migraine Lung cancer Sister Migraine Denies family history of Ovarian cancer Prostate cancer Myocardial infarction Breast cancer Pancreatic adenocarcinoma Social History Smoking Status: Never smoker Second Hand Exposure: No; Do You Dip or Chew Tobacco: No; Tobacco Cessation Education Requested by Patient: No Hx Alcohol Use: No Hx Substance Use: No Preferred Language: Danish Communication Ability: Effective Visual Impairment: No Limitations Hearing Ability: Normal 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 Beliefs That Will Affect Care: None marital status: Single Current Living Situation: Spouse current occupational status: employed Other Information That Helps Us Care for You: No Feels Safe at Home: Yes Safety Concerns: Feels Safe At This Time Childhood Exposure to Second-Hand Smoke: Yes Diet: regular Diet Comment: regular Dental Care, Regularly: Yes Physical Activity Frequency: 3-4 Times per Week Seatbelt Use: always Sunscreen Use: Yes Assistive Devices: None Review of Systems Review of Systems: REVIEW OF SYSTEMS: Constitutional: No fever, sweats or chills Eyes: No diplopia, no worsening or blurred vision ENT: normal hearing, no trouble swallowing Respiratory: No cough, sputum, dyspnea at rest or on exertion Cardiovascular: (+) dizziness, No chest pain, tightness or palpitations Abdomen: No pain, nausea, vomiting, diarrhea or constipation Musculoskeletal: (+) chronic joint pain/fibromyalgia, Psychiatric: No anxiety or depression Skin: No rash or itch Physical Exam Physical Exam: PHYSICAL EXAM: General: awake, alert, no apparent distress Head: Normocephalic, atraumatic ENT: PERRL, EOMI, no pharyngeal exudate, Neuro: AAO x 3, speech clear and appropriate, strength intact bilaterally 5/5, sensation intact and equal all extremities and dermatomes, no pronator drift Chest: equal rise and fall of the chest, no accessory muscle use, no heaves or thrills, Clear to auscultation, on room air, Cardiac: Regular rate and rhythm, telemetry reviewed- NSR, skin warm dry, cap refill <3 seconds, peripheral pulses +2 no JVD, no edema GI: NABS x 4 quadrants, soft, nontender to palpation, no rebound, guarding or tenderness : Spontaneously voiding, no pain, no CVA tenderness, Skin: no rash or erythema Results & Data Results & Data Vital Signs (Past 12 Hours) Vital Signs Temp Pulse Resp BP Pulse Ox O2 Del Method 10/26/24 17:49 37.1 C 81 19 118/57 L 10/26/24 17:45 94 H 15 10/26/24 17:39 37.3 C 78 19 126/68 100 10/26/24 17:36 85 15 100 10/26/24 17:30 109/10/26/24 17:30 109/68 10/26/24 17:30 109/68 10/26/24 17:30 109/68 10/26/24 17:30 109/68 10/26/24 17:30 109/68 10/26/24 17:21 78 20 100 10/26/24 17:20 118/57 L 10/26/24 17:20 118/57 L 10/26/24 17:20 118/57 L 10/26/24 17:20 118/57 L 10/26/24 17:15 108/63 10/26/24 17:09 37.1 C 90 22 112/69 100 10/26/24 17:00 112/69 10/26/24 16:54 36.8 C 84 19 108/63 100 10/26/24 16:45 119/55 L 10/26/24 16:45 119/55 L 10/26/24 16:45 119/55 L 10/26/24 16:45 119/55 L 10/26/24 16:45 119/55 L 10/26/24 16:45 119/55 L 10/26/24 16:45 119/55 L 10/26/24 16:45 36.9 C 83 19 119/55 L 100 10/26/24 16:44 36.9 C 75 19 119/55 L 100 10/26/24 16:42 85 18 100 10/26/24 16:35 36.9 C 70 18 105/50 L 100 10/26/24 16:30 105/50 L 10/26/24 16:30 105/50 L 10/26/24 16:30 105/50 L 10/26/24 16:30 105/50 L 10/26/24 16:30 105/50 L 10/26/24 16:30 105/50 L 10/26/24 16:27 87 23 89/35 L 100 10/26/24 16:24 89/35 L 10/26/24 16:20 36.9 C 83 14 89/53 L 99 10/26/24 16:15 37.1 C 76 18 100/54 L 99 10/26/24 16:12 86 23 100/51 L 100 10/26/24 16:00 84 20 99/54 L 100 10/26/24 16:00 99/54 L 10/26/24 16:00 99/54 L 10/26/24 16:00 99/54 L 10/26/24 16:00 99/54 L 10/26/24 16:00 99/54 L 10/26/24 16:00 37.0 C 78 18 99/54 L 100 10/26/24 15:52 103/53 L 10/26/24 15:52 103/53 L 10/26/24 15:45 80 16 94/43 L 100 10/26/24 15:45 37.0 C 78 18 94/43 L 100 10/26/24 15:45 37.0 C 78 18 94/43 L 100 10/26/24 15:45 37.0 C 78 18 94/43 L 100 10/26/24 15:45 37.0 C 79 18 94/59 L 100 10/26/24 15:45 37.0 C 88 19 94/56 L 100 10/26/24 15:45 36.0 C L 78 18 94/43 L 100 10/26/24 15:37 112/58 L 10/26/24 15:37 112/58 L 10/26/24 15:37 112/58 L 10/26/24 15:37 112/58 L 10/26/24 15:37 112/58 L 10/26/24 15:37 112/58 L 10/26/24 15:37 112/58 L 10/26/24 15:37 112/58 L 10/26/24 15:36 83 13 100 10/26/24 15:30 84 17 100 10/26/24 15:30 37.0 C 78 19 107/57 L 100 10/26/24 15:20 113/60 10/26/24 15:00 106 H 16 100 10/26/24 15:00 126/75 10/26/24 15:00 126/75 10/26/24 15:00 126/75 10/26/24 14:36 101 H 23 79 L 10/26/24 14:30 138/71 10/26/24 14:30 138/71 10/26/24 14:30 138/71 10/26/24 14:30 138/71 10/26/24 14:30 138/71 10/26/24 14:30 138/71 10/26/24 14:30 138/71 10/26/24 14:30 138/71 10/26/24 14:30 138/71 10/26/24 14:10 142/77 H 10/26/24 14:10 142/77 H 10/26/24 14:00 116/66 10/26/24 13:57 94 H 18 100 10/26/24 13:42 88 15 100 10/26/24 13:24 81 14 118/65 99 10/26/24 13:00 80 12 100 10/26/24 13:00 117/64 10/26/24 13:00 117/64 10/26/24 13:00 117/64 10/26/24 13:00 117/64 10/26/24 13:00 117/64 10/26/24 13:00 117/64 10/26/24 13:00 117/64 10/26/24 13:00 117/64 10/26/24 13:00 117/64 10/26/24 13:00 117/64 10/26/24 13:00 117/64 10/26/24 13:00 117/64 10/26/24 12:30 87 29 H 100 10/26/24 12:30 12110/26/24 12:30 121/10/26/24 12:30 121/10/26/24 12:30 121/62 10/26/24 12:30 121/10/26/24 12:30 12110/26/24 12:30 121/10/26/24 12:30 121/10/26/24 12:30 121/62 10/26/24 12:30 121/10/26/24 12:18 81 10/26/24 12:09 94 H 14 100 10/26/24 12:00 11510/26/24 12:00 11510/26/24 12:00 11510/26/24 12:00 11510/26/24 12:00 11510/26/24 12:00 11510/26/24 12:00 11510/26/24 12:00 11510/26/24 12:00 11510/26/24 12:00 11510/26/24 11:57 93 H 18 100 Room Air 10/26/24 11:47 125/10/26/24 11:38 36.9 C 87 19 93/77 L 93 Room Air 10/26/24 11:34 93/77 L 10/26/24 11:34 93/77 L Laboratory Results Abnormal lab results 10/26/24 10/26/24 10/26/24 Range/Units 11:57 11:59 14:17 WBC 11.96 H (4.8-10.8) K/ul RBC 2.73 L (4.20-5.40) M/uL Hgb 7.5 L (12.0-16.0) g/dl POC Hgb 5.8 L* (12.0-16.0) g/dl Hct 23.5 L (37.0-47.0) % POC Hct 17 L* (37-47) % MCHC 31.9 L (32.0-36.0) g/dL RDW Std Deviation 47.1 H (36.4-46.3) fL RDW Coeff of Edi 15.0 H (11.5-14.5) % Neut # (Auto) 9.22 H (1.40-6.50) K/uL Fibrinogen (184-400) mg/dl Chloride 109 H (98-107) mmol/L POC Total CO2 18 L (24-31) mmol/L POC BUN 24 H (7-18) mg/dl BUN 27 H (6-23) mg/dl BUN/Creatinine Ratio 40.9 H (10-20) Glucose 114 H (70-99(Fasting)) mg/dl POC Glucose (other) 121 H (70-99) mg/dl Calcium 7.8 L (8.6-10.3) mg/dl POC Ioniz Calcium Sofie 1.06 L (1.12-1.32) mmol/l Alkaline Phosphatase 33 L (34-104) U/L Total Protein 5.1 L (6.0-8.3) gm/dl Globulin 1.7 L (2.5-4.0) gm/dl POC Stool Occult Blood Positive A (Negative) Crossmatch See Detail 10/26/24 Range/Units 17:43 WBC (4.8-10.8) K/ul RBC (4.20-5.40) M/uL Hgb (12.0-16.0) g/dl POC Hgb (12.0-16.0) g/dl Hct (37.0-47.0) % POC Hct (37-47) % MCHC (32.0-36.0) g/dL RDW Std Deviation (36.4-46.3) fL RDW Coeff of Edi (11.5-14.5) % Neut # (Auto) (1.40-6.50) K/uL Fibrinogen 110 L (184-400) mg/dl Chloride (98-107) mmol/L POC Total CO2 (24-31) mmol/L POC BUN (7-18) mg/dl BUN (6-23) mg/dl BUN/Creatinine Ratio (10-20) Glucose (70-99(Fasting)) mg/dl POC Glucose (other) (70-99) mg/dl Calcium (8.6-10.3) mg/dl POC Ioniz Calcium Sofie (1.12-1.32) mmol/l Alkaline Phosphatase (34-104) U/L Total Protein (6.0-8.3) gm/dl Globulin (2.5-4.0) gm/dl POC Stool Occult Blood (Negative) Crossmatch Diagnostic Findings Abdomen/Pelvis CT 10/26/24 11:[address] WITH IV CONTRAST CT DOSE: 765.16 mGy.cm HISTORY: Acute lower abdominal and back pain lower back pain, GI bleed, hx of duodenal switch TECHNIQUE: Multiaxial CT images of the abdomen and pelvis were performed following the IV administration of 93 cc of Optiray, A dose lowering technique was utilized adhering to the principles of ALARA. COMPARISON STUDY: 10/20/2017 FINDINGS: Clear lung bases. No pneumatosis. Unremarkable spleen, pancreas and adrenal glands. Cholecystectomy. Progressive dilation of the biliary tree with the common bile duct measuring 2.2 cm transversely, previously 1.5 cm. No obstructing biliary stone or lesion identified. Patency of the hepatic and portal veins. No liver lesion identified. Unremarkable kidneys. No hydronephrosis. Unremarkable urinary bladder. IUD in the uterus. 2.2 cm involuting right ovarian follicle. Aorta and IVC are unremarkable. No lymphadenopathy. Julienne-en-Y gastric bypass. Dilation of the jejunojejunal anastomosis without evidence of upstream obstruction. Moderate colonic fecal retention. Normal appendix. No acute fracture. Lumbar levoscoliosis. IMPRESSION: 1. No bowel obstruction or bowel wall thickening. 2. Cholecystectomy with progressive biliary ductal dilation compared to the study from 2018. Correlate with serum bilirubin. 3. Prior Julienne-en-Y gastric bypass 4. Probable constipation. 5. Involuting right ovarian follicle. ACT 112: Negative or not required by law. The above report was generated using voice recognition software. It may contain grammatical, syntax or spelling errors. Electronically signed by: Nitish Pickering M.D. 10/26/2024 2:[address] 10/26/24 14:17 CT cervical spine without IV contrast History: Syncope Comparison: None Technique: Using multidetector thin collimation helical acquisition technique, axial, coronal and sagittal CT images through the cervical spine were obtained without intravenous contrast. Dose reduction techniques were achieved by using automatic exposure control and/or adjustment of mA and/or kV according to patient size and/or use of iterative reconstruction technique. Findings: The cervical vertebrae are normally aligned. Straightened cervical lordosis. No acute fracture or subluxation. No prevertebral edema. There are mild to moderate discogenic degenerative changes associated with small disc osteophyte complexes at C5-6 and C6-7. No abnormality of the paraspinous soft tissues. Impression: No acute fracture or traumatic subluxation. Electronically signed by Miguel A Webster 10-26-2024 3:[address] 10/26/24 14:17 CT head without contrast History: Syncope Comparison: 08/23/2023 Technique: Using multidetector thin collimation helical acquisition technique, axial, coronal and sagittal CT images from the skull base to the vertex were obtained without intravenous contrast. Dose reduction techniques were achieved by using automatic exposure control and/or adjustment of mA and/or kV according to patient size and/or use of iterative reconstruction technique. Findings: No intracranial hemorrhage, mass-effect, or midline shift. The ventricles are proportionate to the cerebral sulci. The newberry to white matter differentiation of the cerebral hemispheres is preserved. The basal cisterns are patent. The visualized paranasal sinuses are clear. Mastoid air cells are clear. Impression: No acute intracranial pathology. Electronically signed by Miguel A Webster 10-26-2024 3:06 PM Coding Level of Care Code 55753 CRITICAL CARE 1ST 30-74M Diagnoses Acute blood loss anemia D62
[2024-10-26] MEDS ORDERED: traZODone HCL 50 MG TAB PO PRN (19:55)
[2024-10-26] MEDS ORDERED: LORazepam 0.5 MG TAB PO PRN (19:55)
[2024-10-26] MEDS ORDERED: ALUMINUM/MAGNESIUM SUSP 30 ML UDC PO PRN (19:55)
[2024-10-26] MEDS ORDERED: TEMAZEPAM 7.5 MG CAPSULE PO PRN (19:55)
[2024-10-26] MEDS ORDERED: MAGNESIUM HYDROXIDE SUSP 30 ML UDC PO PRN (19:55)
[2024-10-26] MEDS: SODIUM CHLORIDE 0.9% 1,000 ML IV SCH (20:22)
[2024-10-26] MEDS: CALCIUM GLUCONATE 1,000 MG/60 ML BAG IV ONE (20:22)
[2024-10-26] MEDS: lamoTRIgine 100 MG TAB PO SCH (20:25)
[2024-10-26] MEDS: PANTOprazole 40 MG/10 ML SYR IV SCH (20:25)
[2024-10-26] MEDS: FAMOTIDINE 20MG IV PUSH 20 MG/5 ML SYR IV SCH (20:25)
[2024-10-26] MEDS: ACETAMINOPHEN 325 MG TAB PO PRN (21:05)
--- NOTE | 2024-10-26 22:02 | Electrocardiogram Report ---
Test Reason : Blood Pressure : */* mmHG Vent. Rate : 81 BPM Atrial Rate : 81 BPM P-R Int : 138 ms QRS Dur : 80 ms QT Int : 384 ms P-R-T Axes : * 56 65 degrees QTcB Int : 446 ms Ectopic atrial rhythm Nonspecific ST abnormality When compared with ECG of 23-Aug-2023 16:16, Ectopic atrial rhythm has replaced Sinus rhythm Confirmed by Abhijit Burlesno ([id number]) on 10/26/2024 10:01:32 PM Referred By: REFERRED SELF Confirmed By: Abhijit Burleson
[2024-10-27 01:17] LABS: Hematocrit (blood only) 22.2 % (37.0-47.0); Hemoglobin 7.6 g/dl (12.0-16.0)
[2024-10-27 05:04] LABS: Basophils # (auto) 0.01 K/uL (0.00-0.20); Basophils % (auto) 0.1 %; Hemoglobin 7.1 g/dl (12.0-16.0); Immature Granulocytes # (auto) 0.04 K/uL (0.01-0.20); Immature Granulocytes % (auto) 0.4 %; Lymphocytes # (auto) 1.54 K/uL (1.20-3.40); Lymphocytes % (auto) 15.7 %; Mean Corpuscular Hemoglobin 28.9 pg (25.0-34.0); Mean Corpuscular Hgb Conc 33.8 g/dL (32.0-36.0); Mean Corpuscular Volume 85.4 fL (80.0-100.0); Mean Platelet Volume 10.4 fL (9.4-12.4); Monocytes # (auto) 0.68 K/uL (0.11-0.59); Monocytes % (auto) 6.9 %; Neutrophils # (auto) 7.53 K/uL (1.40-6.50); Neutrophils % (auto) 76.9 %; Platelet Count 125 K/uL (130-400); RDW Coefficient of Variation 14.6 % (11.5-14.5); RDW Standard Deviation 45.1 fL (36.4-46.3); Red Blood Count 2.46 M/uL (4.20-5.40)
[2024-10-27 05:21] LABS: BUN Creatinine Ratio 36.2 (10-20); Calcium 7.3 mg/dl (8.6-10.3); Creatinine Clr Calc Pharmacy 147.5 ml/min; Magnesium 1.6 mg/dl (1.7-2.4); Potassium 4.3 mmol/L (3.5-5.1)
[2024-10-27 05:26] LABS: RBC Morphology Unremarkable
[2024-10-27] MEDS ORDERED: SODIUM CHLORIDE 0.9% 100 ML IV PRN ×2 (06:00→08:28)
--- NOTE | 2024-10-27 08:12 | Gastroenterology Progress Note ---
Date of Service October 27, 2024 Assessment & Plan (1) Acute blood loss anemia: Plan: Upper endoscopy unrevealing no source for bleeding. Will proceed with colonoscopy in AM. Possible small bowel bleed in setting of prior gastric bypass surgery. Colonoscopy negative will need further evaluation of her small bowel with capsule endoscopy and possible deep enteroscopy at a tertiary care facility. Agree with blood transfusions. Can have clear liquid diet today with no red Jell-O or red fluid. Admission and Anticipated Discharge Date Admission Date: October 26, 2024 Subjective Had 2 episodes of bloody bowel movements through the night last episode 3 AM nothing since then. Denies of abdominal pain shortness of breath or chest pain. Physical Exam Physical Exam: No acute distress Respiratory rate regular Cardiac rhythm regular Abdomen soft nontender Results & Data Results & Data Vital Signs (Past 12 Hours) Vital Signs Temp Pulse Pulse Resp BP BP Pulse Ox 10/27/24 07:33 37.4 C 78 16 102/41 L 100 10/27/24 07:03 37.5 C 76 15 96/53 L 100 10/27/24 06:48 37.5 C 83 18 108/41 L 100 10/27/24 06:32 37.3 C 82 18 108/57 L 100 10/27/24 05:00 78 16 110/51 L 100 10/27/24 04:00 74 17 121/60 100 10/27/24 03:00 84 14 119/62 100 10/27/24 02:00 75 19 101/50 L 99 10/27/24 01:00 69 16 99/41 L 97 10/27/24 00:30 81 23 99/63 L 98 10/27/24 00:00 85 10/26/24 22:30 69 17 104/58 L 97 10/26/24 22:00 72 17 99/49 L 99 10/26/24 21:48 123/59 L 10/26/24 21:36 90 24 144/91 H 99 10/26/24 21:00 74 17 132/71 100 10/26/24 20:30 77 20 106/80 100 10/26/24 20:19 36.6 C 85 18 112/67 97 O2 Del Method 10/27/24 07:33 10/27/24 07:03 10/27/24 06:48 10/27/24 06:32 10/27/24 05:00 10/27/24 04:00 10/27/24 03:00 10/27/24 02:00 10/27/24 01:00 10/27/24 00:30 10/27/24 00:00 10/26/24 22:30 10/26/24 22:00 10/26/24 21:48 10/26/24 21:36 10/26/24 21:00 10/26/24 20:30 10/26/24 20:19 Room Air Laboratory Results Laboratory Results - last 48 hr 10/26/24 10/26/24 10/26/24 11:57 11:59 12:03 WBC 11.96 H RBC 2.73 L Hgb 7.5 L POC Hgb Hct 23.5 L POC Hct MCV 86.1 MCH 27.5 MCHC 31.9 L RDW Std Deviation 47.1 H RDW Coeff of Edi 15.0 H Plt Count 219 MPV 10.2 Immature Gran % (Auto) 1.3 Neut % (Auto) 77.1 Lymph % (Auto) 17.8 Will % (Auto) 3.6 Eos % (Auto) 0.0 Baso % (Auto) 0.2 Neut # (Auto) 9.22 H Lymph # (Auto) 2.13 Will # (Auto) 0.43 Eos # (Auto) 0.00 Baso # (Auto) 0.02 Immature Gran # (Auto) 0.16 RBC Morphology Unremarkable PT 11.4 INR 1.1 APTT 24 PTT Ratio 0.9 Fibrinogen POC Sodium Sodium 137 POC Potassium Potassium 4.7 POC Chloride Chloride 109 H Carbon Dioxide 25 POC Total CO2 Anion Gap 3 POC Anion Gap POC BUN BUN 27 H Creatinine 0.66 POC Creatinine Est Cr Clr Drug Dosing 129.7 eGFR 116.52 BUN/Creatinine Ratio 40.9 H Glucose 114 H POC Glucose (other) Calcium 7.8 L POC Ioniz Calcium Sofie Magnesium Total Bilirubin 0.2 AST 16 ALT 15 Alkaline Phosphatase 33 L Total Protein 5.1 L Albumin 3.4 Globulin 1.7 L Albumin/Globulin Ratio 2.0 HCG, Qual Negative Nasal Screen MRSA (PCR) POC Stool Occult Blood Positive A Blood Type A Positive Blood Type Recheck Antibody Screen NEGATIVE Crossmatch See Detail 10/26/24 10/26/24 10/26/24 14:17 14:31 17:43 WBC RBC Hgb POC Hgb 5.8 L* Hct POC Hct 17 L* MCV MCH MCHC RDW Std Deviation RDW Coeff of Edi Plt Count MPV Immature Gran % (Auto) Neut % (Auto) Lymph % (Auto) Will % (Auto) Eos % (Auto) Baso % (Auto) Neut # (Auto) Lymph # (Auto) Will # (Auto) Eos # (Auto) Baso # (Auto) Immature Gran # (Auto) RBC Morphology PT INR APTT PTT Ratio Fibrinogen 110 L POC Sodium 140 Sodium POC Potassium 4.4 Potassium POC Chloride 106 Chloride Carbon Dioxide POC Total CO2 18 L Anion Gap POC Anion Gap 21.0 POC BUN 24 H BUN Creatinine POC Creatinine 0.6 Est Cr Clr Drug Dosing eGFR BUN/Creatinine Ratio Glucose POC Glucose (other) 121 H Calcium POC Ioniz Calcium Sofie 1.06 L Magnesium Total Bilirubin AST ALT Alkaline Phosphatase Total Protein Albumin Globulin Albumin/Globulin Ratio HCG, Qual Nasal Screen MRSA (PCR) POC Stool Occult Blood Blood Type Blood Type Recheck A Positive Antibody Screen Crossmatch 10/26/24 10/26/24 10/27/24 21:05 Unknown 00:47 WBC RBC Hgb 8.5 L 7.6 L POC Hgb Hct 22.2 L POC Hct MCV MCH MCHC RDW Std Deviation RDW Coeff of Edi Plt Count MPV Immature Gran % (Auto) Neut % (Auto) Lymph % (Auto) Will % (Auto) Eos % (Auto) Baso % (Auto) Neut # (Auto) Lymph # (Auto) Will # (Auto) Eos # (Auto) Baso # (Auto) Immature Gran # (Auto) RBC Morphology PT INR APTT PTT Ratio Fibrinogen POC Sodium Sodium POC Potassium Potassium POC Chloride Chloride Carbon Dioxide POC Total CO2 Anion Gap POC Anion Gap POC BUN BUN Creatinine POC Creatinine Est Cr Clr Drug Dosing eGFR BUN/Creatinine Ratio Glucose POC Glucose (other) Calcium POC Ioniz Calcium Sofie Magnesium Total Bilirubin AST ALT Alkaline Phosphatase Total Protein Albumin Globulin Albumin/Globulin Ratio HCG, Qual Nasal Screen MRSA (PCR) Negative POC Stool Occult Blood Blood Type Blood Type Recheck Antibody Screen Crossmatch 10/27/24 04:32 WBC 9.80 RBC 2.46 L Hgb 7.1 L POC Hgb Hct 21.0 L POC Hct MCV 85.4 MCH 28.9 MCHC 33.8 RDW Std Deviation 45.1 RDW Coeff of Edi 14.6 H Plt Count 125 L MPV 10.4 Immature Gran % (Auto) 0.4 Neut % (Auto) 76.9 Lymph % (Auto) 15.7 Will % (Auto) 6.9 Eos % (Auto) 0.0 Baso % (Auto) 0.1 Neut # (Auto) 7.53 H Lymph # (Auto) 1.54 Will # (Auto) 0.68 H Eos # (Auto) 0.00 Baso # (Auto) 0.01 Immature Gran # (Auto) 0.04 RBC Morphology Unremarkable PT INR APTT PTT Ratio Fibrinogen POC Sodium Sodium 140 POC Potassium Potassium 4.3 POC Chloride Chloride 115 H Carbon Dioxide 22 POC Total CO2 Anion Gap 3 POC Anion Gap POC BUN BUN 21 Creatinine 0.58 L POC Creatinine Est Cr Clr Drug Dosing 147.5 eGFR 120.20 BUN/Creatinine Ratio 36.2 H Glucose 125 H POC Glucose (other) Calcium 7.3 L POC Ioniz Calcium Sofie Magnesium 1.6 L Total Bilirubin AST ALT Alkaline Phosphatase Total Protein Albumin Globulin Albumin/Globulin Ratio HCG, Qual Nasal Screen MRSA (PCR) POC Stool Occult Blood Blood Type Blood Type Recheck Antibody Screen Crossmatch PG Care Time/CCT Total # of Minutes Spent Total Time Spent with Patient: Total time spent is greater than 50% in coordination of care (as documented) at patient's floor/unit and/or counseling patient: Coding Level of Care Code 23736 SUB INP/OBS CARE 3/50MIN Diagnoses Acute blood loss anemia D62
[2024-10-27] MEDS: ARIPiprazole 2 MG TAB PO SCH (08:26)
--- NOTE | 2024-10-27 09:58 | Critical Care Progress Note ---
Date of Service October 27, 2024 Assessment & Plan (1) Acute blood loss anemia: Plan Reason Critically Ill: 34 YOF presents for concern of acute blood loss secondary to UGIB associated with syncope and collapse in the ER, s/p urgent/emergent Endoscopy by GI with no evidence at this time of acute bleeding. To the ICU for continued hemodynamic monitoring and resuscitation. Neuro - No acute needs CAM ICU: NEGATIVE - CT c-spine and head performed following collapse in the ER- c-spine precautions removed while in ER- imaging without acute fracture - CT head for the same- no acute hemorrhage or hematoma noted - follow neurological exam- for possible DASH- CT head non-con for any neurological changes. Cardiac - Shock associated with syncope and collapse, acute blood loss anemia - Concern for acute blood loss secondary to UGIB associated with syncope and collapse with drop in HGB levels - Patient has received 2 u PRBC, 1 GM calcium gluconate - EGD- with no acute evidence of upper GI bleeding - COAGS- with normal PT/PTT/INR - Fibrinogen low at 110- will replace if return of active bleeding or hemodynamics unstable - If re-bleeding occurs or hemodynamics change, will obtain CTA of the abd/pelvis and re-discuss options with GI - Continue pantoprazole 40 mg twice daily. - Maintain 2 large bore 18g or larger IV access - Hold any antihypertensives until hemodynamics proven stable. Respiratory - No acute needs - wean oxygen as able GI - As above, hx of julienne en y gastric bypass - NPO -Bowel prep for colonoscopy per GI. No source of upper GI bleed. RENAL/LYTES - No acute needs - replete electrolytes as needed per ICU electrolyte protocol - no acute needs ENDO - No acute needs - ICU hyper/hypoglycemic protocol HEME - acute blood loss anemia - As above - follow HGB q6 hours - ID - No concern at this time for acute infective process or septic shock LINES/IV ACCESS - PIV Continue use of these lines DVT PROPHYLAXIS - SCDS, chemoprophylaxis on hold until acute bleeding is ruled out and stable DISPO: ICU until hemodynamics and HGB levels are proven stable. Admission and Anticipated Discharge Date Admission Date: October 26, 2024 Subjective Patient notes that she is having continued bloody bowel movements through the night with the last episode being around 3 or 4 AM. She denies any dizziness, chest pain or headache. She is hemodynamically stable. She just completed 1 unit of packed RBCs. Repeat hemoglobin is pending. GI is planning for a colonoscopy in the morning tomorrow and has started her on a clear diet. Review of Systems Review of Systems: All systems reviewed & are unremarkable except as noted in HPI & below Physical Exam Physical Exam: PHYSICAL EXAM: General: awake, alert, no apparent distress Head: Normocephalic, atraumatic ENT: PERRL, EOMI, no pharyngeal exudate, Neuro: AAO x 3, speech clear and appropriate, strength intact bilaterally 5/5, sensation intact and equal all extremities and dermatomes, no pronator drift Chest: equal rise and fall of the chest, no accessory muscle use, no heaves or thrills, Clear to auscultation, on room air, Cardiac: Regular rate and rhythm, telemetry reviewed- NSR, skin warm dry, cap refill <3 seconds, peripheral pulses +2 no JVD, no edema GI: NABS x 4 quadrants, soft, nontender to palpation, no rebound, guarding or tenderness : Spontaneously voiding, no pain, no CVA tenderness, Skin: no rash or erythema Results & Data Results & Data Vital Signs (Past 12 Hours) Vital Signs Temp Pulse Resp BP Pulse Ox 10/27/24 09:18 37.3 C 79 16 116/52 L 100 10/27/24 08:33 37.3 C 82 19 141/82 H 99 10/27/24 07:33 37.4 C 78 16 102/41 L 100 10/27/24 07:03 37.5 C 76 15 96/53 L 100 10/27/24 06:48 37.5 C 83 18 108/41 L 100 10/27/24 06:32 37.3 C 82 18 108/57 L 100 10/27/24 05:00 78 16 110/51 L 100 10/27/24 04:00 74 17 121/60 100 10/27/24 03:00 84 14 119/62 100 10/27/24 02:00 75 19 101/50 L 99 10/27/24 01:00 69 16 99/41 L 97 10/27/24 00:30 81 23 99/63 L 98 10/27/24 00:00 85 10/26/24 22:30 69 17 104/58 L 97 10/26/24 22:00 72 17 99/49 L 99 Coding Level of Care Code 72384 SUB INP/OBS CARE MIN Diagnoses Acute blood loss anemia D62
[2024-10-27 10:52] LABS: Hemoglobin 8.7 g/dl (12.0-16.0)
[2024-10-27] MEDS: DESVENLAFAXINE SUCCINATE 25 MG PO SCH (13:19)
[2024-10-27] MEDS: DESVENLAFAXINE SUCCINATE ER TABLET 50MG PO SCH (13:19)
--- NOTE | 2024-10-27 13:27 | Electrocardiogram Report ---
Test Reason : Blood Pressure : */* mmHG Vent. Rate : 85 BPM Atrial Rate : 85 BPM P-R Int : 130 ms QRS Dur : 80 ms QT Int : 384 ms P-R-T Axes : 17 44 48 degrees QTcB Int : 457 ms Normal sinus rhythm Nonspecific T wave abnormality Abnormal ECG When compared with ECG of 26-Oct-2024 12:13, Nonspecific T wave abnormality is now Present Confirmed by Abhijit Burleson ([id number]) on 10/27/2024 1:27:19 PM Referred By: REFERRED SELF Confirmed By: Abhijit Burleson
[2024-10-27] MEDS: LAVAGE SOLUTION 4000ML PO SCH (15:48)
--- NOTE | 2024-10-27 22:45 | Hospitalist Progress Note ---
Date of Service October 27, 2024 Assessment & Plan (1) Acute GI bleeding: Plan: Acute GI bleed with acute blood loss anemia, unknown etiology - Admit to ICU - NPO - CTAP w/o obvious source of bleed - Consult GI, Dr. Mathews, appreciate assistance _upper endoscopy was negative, now requiring prep for colonscopy tomorrow. - patient has required multiple trnasfusions of PRBC while in the ICU. -will remain there until hemoglobin and BP stabilizes -continue Pantoprazole IV BID (2) Acute blood loss anemia: Plan: Acute d/t GI bleed - Hgb on presentation 7.5, received 1.5L NSS - hemoglbin at 8.7, will continue to monitor. replenish as needed with PRBC. currently received 2 units, (3) Syncope and collapse: Plan: Acute - Suspect related to profound anemia and hypovolemia - Bedrest - CTH and neck were WNL - D/c c-collar - ICU - Presyncopal again in ER with bp of 81/44, ordered another 500 cc bolus of NSS - Continue mIVF w/ NSS @ 100 ml/hr Plan Chronic medical problems: Bipolar disorder/Borderline personality disorder/depression/anxiety - continue abilify, desvenlafaxine, lamictal, lorazepam, temazepam, and trazodone Chemoppx for VTE prevention is contraindicated in setting of GI bleed with ABLA. SCDs to b/l LE. AM labs have been ordered. Updated Narciso via phone. Above plan of care has been d/w Dr. Hendrix. Further orders to be implemented as clinically warranted. Admission and Anticipated Discharge Date Admission Date: October 26, 2024 Subjective 34 yo female reports no new symptoms. Physical Exam Physical Exam: GENERAL: 34 yo well-nourished WF. No distress. Pale EYES: EOMI. PERRLA. Anicteric. HENT: Moist mucous membranes. No cervical lymphadenopathy. LUNGS: Clear to auscultation bilaterally. No accessory muscle use. No W/R/R. CARDIOVASCULAR: Regular rate and rhythm. No M/G/R. No JVD. ABDOMEN: Soft, non-tender and non-distended. No palpable masses. Bowel sounds normoactive x 4 quad. Results & Data Results & Data Vital Signs (Past 12 Hours) Vital Signs Temp Pulse Pulse Resp BP BP Pulse Ox 04/06/25 21:00 84 13 10/27/24 20:00 37 C 89 18 115/69 10/27/24 19:00 82 14 10/27/24 18:12 80 17 10/27/24 17:03 78 15 10/27/24 16:06 89 17 10/27/24 15:52 37.0 C 88 17 128/76 100 10/27/24 15:46 128/76 10/27/24 15:46 128/76 10/27/24 15:46 128/76 10/27/24 15:46 128/76 10/27/24 15:46 128/76 10/27/24 15:46 128/76 10/27/24 15:46 128/76 10/27/24 15:46 128/76 10/27/24 15:46 128/76 10/27/24 15:46 128/76 10/27/24 15:46 128/76 10/27/24 15:46 128/76 10/27/24 15:46 128/76 10/27/24 15:46 128/76 10/27/24 15:46 128/76 10/27/24 15:46 128/76 10/27/24 15:46 128/76 10/27/24 15:46 128/76 10/27/24 15:46 128/76 10/27/24 15:46 128/76 10/27/24 15:46 128/76 10/27/24 15:46 128/76 10/27/24 15:46 128/76 10/27/24 15:46 128/76 10/27/24 15:46 128/76 10/27/24 15:46 128/76 10/27/24 15:42 85 19 10/27/24 15:40 83 10/27/24 15:00 89 14 10/27/24 14:12 84 20 105/68 100 10/27/24 13:15 83 16 100 10/27/24 13:06 82 14 99 10/27/24 13:00 109/47 L 10/27/24 13:00 109/47 L 10/27/24 13:00 109/47 L 10/27/24 13:00 109/47 L 10/27/24 13:00 109/47 L 10/27/24 13:00 109/47 L 10/27/24 13:00 109/47 L 10/27/24 13:00 109/47 L 10/27/24 12:48 86 15 100 10/27/24 12:39 78 17 100 10/27/24 12:15 73 18 100 10/27/24 12:00 90 19 100 10/27/24 12:00 120/59 L 10/27/24 11:14 37.3 C 10/27/24 11:09 89 23 100 10/27/24 11:00 130/56 L O2 Del Method 10/27/24 21:00 10/27/24 20:00 10/27/24 19:00 10/27/24 18:12 10/27/24 17:03 10/27/24 16:06 10/27/24 15:52 Room Air 10/27/24 15:46 10/27/24 15:46 10/27/24 15:46 10/27/24 15:46 10/27/24 15:46 10/27/24 15:46 10/27/24 15:46 10/27/24 15:46 10/27/24 15:46 10/27/24 15:46 10/27/24 15:46 10/27/24 15:46 10/27/24 15:46 10/27/24 15:46 10/27/24 15:46 10/27/24 15:46 10/27/24 15:46 10/27/24 15:46 10/27/24 15:46 10/27/24 15:46 10/27/24 15:46 10/27/24 15:46 10/27/24 15:46 10/27/24 15:46 10/27/24 15:46 10/27/24 15:46 10/27/24 15:42 10/27/24 15:40 10/27/24 15:00 10/27/24 14:12 10/27/24 13:15 10/27/24 13:06 10/27/24 13:00 10/27/24 13:00 10/27/24 13:00 10/27/24 13:00 10/27/24 13:00 10/27/24 13:00 10/27/24 13:00 10/27/24 13:00 10/27/24 12:48 10/27/24 12:39 10/27/24 12:15 10/27/24 12:00 10/27/24 12:00 10/27/24 11:14 10/27/24 11:09 10/27/24 11:00 PG Care Time/CCT Total # of Minutes Spent Total Time Spent with Patient: Total time spent is greater than 50% in coordination of care (as documented) at patient's floor/unit and/or counseling patient: Coding Level of Care Code 63451 SUB INP/OBS CARE 3/50MIN Diagnoses Acute GI bleeding K92.2 Acute blood loss anemia D62 Syncope and collapse R55
[2024-10-28] MEDS: ACETAMINOPHEN 1,000 MG/100 ML VIAL IV STA (03:48)
[2024-10-28 05:20] LABS: Basophils # (auto) 0.01 K/uL (0.00-0.20); Basophils % (auto) 0.2 %; Eosinophils # (auto) 0.01 K/uL (0.00-0.50); Eosinophils % (auto) 0.2 %; Hemoglobin 7.1 g/dl (12.0-16.0); Immature Granulocytes # (auto) 0.02 K/uL (0.01-0.20); Immature Granulocytes % (auto) 0.4 %; Lymphocytes # (auto) 1.84 K/uL (1.20-3.40); Mean Corpuscular Hemoglobin 28.2 pg (25.0-34.0); Mean Corpuscular Hgb Conc 33.8 g/dL (32.0-36.0); Mean Corpuscular Volume 83.3 fL (80.0-100.0); Mean Platelet Volume 10.1 fL (9.4-12.4); Monocytes # (auto) 0.45 K/uL (0.11-0.59); Monocytes % (auto) 8.6 %; Neutrophils # (auto) 2.93 K/uL (1.40-6.50); Neutrophils % (auto) 55.6 %; Platelet Count 124 K/uL (130-400); RDW Coefficient of Variation 15.2 % (11.5-14.5); RDW Standard Deviation 45.3 fL (36.4-46.3); Red Blood Count 2.52 M/uL (4.20-5.40); White Blood Count 5.26 K/ul (4.8-10.8)
[2024-10-28 05:51] LABS: Polychromasia 1+
[2024-10-28 05:58] LABS: BUN Creatinine Ratio 13.1 (10-20); Calcium 7.4 mg/dl (8.6-10.3); Creatinine Clr Calc Pharmacy 140.3 ml/min; Magnesium 1.5 mg/dl (1.7-2.4); Phosphorus 2.5 mg/dl (2.5-4.9); Potassium 3.5 mmol/L (3.5-5.1)
[2024-10-28] MEDS ORDERED: SODIUM CHLORIDE 0.9% 100 ML IV PRN (08:24)
--- NOTE | 2024-10-28 08:25 | Critical Care Progress Note ---
Date of Service October 28, 2024 Assessment & Plan (1) Acute blood loss anemia: Plan Reason Critically Ill: 34 YOF presents for concern of acute blood loss secondary to UGIB associated with syncope and collapse in the ER, s/p urgent/emergent Endoscopy by GI with no evidence at this time of acute bleeding. To the ICU for continued hemodynamic monitoring and resuscitation. EGD with no acute finding. N.p.o. pending colonoscopy today. Recommendation: Neuro - No acute needs Cardiac - Shock associated with syncope and collapse, acute blood loss anemia. Currently hemodynamically stable. Respiratory - No acute needs GI - As above, hx of julienne en y gastric bypass. GI bleeding of unclear etiology. EGD unrevealing. Pending colonoscopy today. Depending on findings, may need nuclear medicine tagged RBC scan or potentially push enteroscopy. Will transfuse 1 additional units packed cells today given active bleeding and hemoglobin of about 7 RENAL/LYTES - No acute needs - replete electrolytes as needed per ICU electrolyte protocol - no acute needs ENDO - No acute needs - ICU hyper/hypoglycemic protocol HEME - acute blood loss anemia. Transfusion today and follow hemoglobin until stable ID - No concern at this time for acute infective process or septic shock LINES/IV ACCESS - PIV Continue use of these lines DVT PROPHYLAXIS - SCDS, chemoprophylaxis on hold until acute bleeding is ruled out and stable DISPO: ICU pending results of colonoscopy and stabilization of hemoglobin. Can likely transfer to the floor after her procedure Admission and Anticipated Discharge Date Admission Date: October 26, 2024 Subjective Patient seen and examined. EMR reviewed. Discussed with off going clam digger as well as with bedside critical care nurse and on multidisciplinary rounds. Patient reports that she is feeling well this morning. She denies any abdominal pain. No nausea or vomiting. Her last bloody bowel movement was late yesterday evening in association with her GI prep. She is pending colonoscopy today. Review of Systems Review of Systems: All systems reviewed & are unremarkable except as noted in Subjective Physical Exam Constitutional: WD/WN, vitals as above Neck: trachea midline, no thyromegaly Respiratory: normal respiratory effort, lungs clear to auscultation Cardiovascular: RRR, no murmur, no edema Gastrointestinal (Abdomen): normal bowel sounds, soft, nontender, no hepatosplenomegaly Musculoskeletal: Extremities: extremities normal to inspection Skin: no rashes, warm and dry Neurologic: Nonfocal exam Lymphatic: no cervical lymphadenopathy Results & Data Results & Data Vital Signs (Past 12 Hours) Vital Signs Temp Pulse Resp BP Pulse Ox O2 Del Method 10/28/24 06:03 71 4 L 10/28/24 05:11 75 19 10/28/24 05:00 78 15 99/49 L 100 10/28/24 04:11 94 H 29 H 98/56 L 99 10/28/24 03:05 87 13 104/52 L 100 10/28/24 02:02 37 C 76 13 106/50 L 99 10/28/24 01:00 76 17 99 10/28/24 00:03 79 15 109/59 L 10/28/24 00:00 74 10/27/24 23:00 88 15 100 10/27/24 22:00 91 H 20 100 10/27/24 21:00 36.9 C 84 13 100 Room Air Critical Care Results & Data Vital Signs (Past 12 Hours) Vital Signs Temp Pulse Resp BP Pulse Ox O2 Del Method 10/28/24 06:03 71 4 L 10/28/24 05:11 75 19 10/28/24 05:00 78 15 99/49 L 100 10/28/24 04:11 94 H 29 H 98/56 L 99 10/28/24 03:05 87 13 104/52 L 100 10/28/24 02:02 37 C 76 13 106/50 L 99 10/28/24 01:00 76 17 99 10/28/24 00:03 79 15 109/59 L 10/28/24 00:00 74 10/27/24 23:00 88 15 100 10/27/24 22:00 91 H 20 100 10/27/24 21:00 36.9 C 84 13 100 Room Air Lab & Micro Results (Past 24 Hours) RBC 2.52 M/uL (4.20-5.40) L 10/28/24 WBC 5.26 K/ul (4.8-10.8) 10/28/24 Hgb 7.1 g/dl (12.0-16.0) L 10/28/24 Hct 21.0 % (37.0-47.0) L 10/28/24 MCV 83.3 fL (80.0-100.0) 10/28/24 MCH 28.2 pg (25.0-34.0) 10/28/24 MCHC 33.8 g/dL (32.0-36.0) 10/28/24 RDW Standard Deviation 45.3 fL (36.4-46.3) 10/28/24 RDW Coefficient of Variation 15.2 % (11.5-14.5) H 10/28/24 Plt Count 124 K/uL (130-400) L 10/28/24 MPV 10.1 fL (9.4-12.4) 10/28/24 Neutrophils (%) (Auto) 55.6 % 10/28/24 Lymphocytes (%) (Auto) 35.0 % 10/28/24 Monocytes # (Auto) 0.45 K/uL (0.11-0.59) 10/28/24 Eosinophils # (Auto) 0.01 K/uL (0.00-0.50) 10/28/24 Immature Granulocyte % (Auto) 0.4 % 10/28/24 Neutrophils # (Auto) 2.93 K/uL (1.40-6.50) 10/28/24 Lymphocytes # (Auto) 1.84 K/uL (1.20-3.40) 10/28/24 Monocytes # (Auto) 0.45 K/uL (0.11-0.59) 10/28/24 Eosinophils # (Auto) 0.01 K/uL (0.00-0.50) 10/28/24 Basophils # (Auto) 0.01 K/uL (0.00-0.20) 10/28/24 Immature Granulocyte # (Auto) 0.02 K/uL (0.01-0.20) 5 Polychromasia 1+ 10/28/24 Na 142 mmol/L (136-145) 10/28/24 K 3.5 mmol/L (3.5-5.1) 10/28/24 Cl 113 mmol/L (98-107) H 10/28/24 CO2 25 mmol/L (21-32) 10/28/24 Anion Gap 4 (3-11) 10/28/24 BUN 8 mg/dl (6-23) 10/28/24 Creatinine 0.61 mg/dl (0.6-1.2) 10/28/24 BUN/Creatinine Ratio 13.1 (10-20) 10/28/24 Glu 94 mg/dl (70-99(Fasting)) 10/28/24 Ca 7.4 mg/dl (8.6-10.3) L 10/28/24 Phosphorus Level 2.5 mg/dl (2.5-4.9) 10/28/24 Mg 1.5 mg/dl (1.7-2.4) L 10/28/24 04:47 Calcium Level 7.4 mg/dl (8.6-10.3) L 10/28/24 04:47 I & O Totals 24 Hours 10/27/24 10/28/24 10/29/24 06:59 06:59 06:59 Intake Total 3960 / 3960 6516 / 6516 Output Total 2 / 2 11 Balance 3958 / 3958 6505 / 6505 Cumulative 10/26/24 11:18 thru 10/28/24 06:25 Intake Total 82947 Output Total 13 Balance 07395 RT Ventilator Mngmt (Last Documented) Ventilator Ordered Settings Respiratory Rate 4 10/28/24 06:03 Ventilator - PT Measurements Respiratory Rate 4 Coding Level of Care Code 11251 SUB INP/OBS CARE 3/50MIN Diagnoses Acute blood loss anemia D62
[2024-10-28] MEDS: CALCIUM GLUCONATE 1,000 MG/60 ML BAG IV SCH (09:15)
[2024-10-28] MEDS: MAGNESIUM SULFATE / D5W 1 GM/100 ML BAG IV ONE (09:15)
--- NOTE | 2024-10-28 09:31 | History & Physical Bridge Note ---
Date of Service October 28, 2024 History & Physical Bridge Note I have examined the patient, reviewed the History & Physical and in the interval since the performance of the History & Physical I have noted the following changes of clinical significance: Patient noted rectal bleeding with prep. hgb 7.1 this morning, currently being transfused. she finished bowel prep and she notes stools were clear towards the end. no melena. rest of GI ros are unremarkable. no chest pain/sob. - will plan to proceed with a colonoscopy today to further evaluate. Supervising Physician Co-Signing Physician Notes I saw and examined this patient with our nurse practitioner and agree with her assessment and plan. Will proceed with colonoscopy today if negative need to consider small bowel source for bleeding and may need to be transferred to a [facility] for small bowel evaluation.
--- NOTE | 2024-10-28 13:39 | Anesthesiology Consultation ---
Date of Service October 28, 2024 Assessment & Plan (1) Encounter for pre-operative examination: Chart Review Chart Review: Acceptable Risk for Surgery History Surgery Operation Date: 10/26/24 19:00 Proposed Procedures p EGD Franky Mathews MD Operation Date: 10/28/24 16:30 Proposed Procedures p Colonoscopy Dr. Reid Mathews MD Height/Weight Height: 5 ft 8 in Weight: 78.1 kg Allergies Allergy/AdvReac Type Severity Reaction Status Date / Time pineapple Allergy Intermediate MOUTH Verified 10/26/24 12:21 SORES, CAN'T TASTE FOR A WHILE AFTER nickel Allergy Mild Skin Verified 10/26/24 12:21 IRRITATION Medications Home Medications Medication Instructions Recorded Confirmed Last Taken levonorgestrel 21 mcg/24 hr (up to 1 device intrauterine CONTINOUS 02/04/19 10/26/24 Unknown 8 years) 52 mg intrauterine device (Mirena) lamotrigine 100 mg tablet 200 mg PO HS 09/25/19 10/26/24 10/25/24 lorazepam 0.5 mg tablet 0.25 - 0.5 mg PO BID PRN 08/23/23 10/26/24 10/25/24 Anxiety/Nightmares aripiprazole 2 mg tablet (Abilify) 2 mg PO DAILY 12/26/23 10/26/24 10/25/24 desvenlafaxine succinate 25 mg 25 mg PO QAM 10/26/24 10/26/24 10/25/24 tablet,extended release 24 hr desvenlafaxine succinate 50 mg 50 mg PO QAM 10/26/24 10/26/24 10/25/24 tablet,extended release 24 hr temazepam 22.5 mg capsule 22.5 mg PO HS PRN Sleep 10/26/24 10/26/24 10/25/24 trazodone 50 mg tablet 50 mg PO HS PRN Sleep 10/26/24 10/26/24 10/25/24 Active Medications Generic Name Dose Route Start Last Admin Trade Name Freq PRN Reason Stop Dose Admin Acetaminophen 650 mg 10/26/24 19:55 10/27/24 20:49 Acetaminophen 325 Mg Tab PO 11/25/24 19:54 650 mg Q4H PRN Administration Pain or Fever Aripiprazole 2 mg 10/27/24 09:00 10/28/24 09:15 Aripiprazole 2 Mg Tab PO 11/26/24 08:59 2 mg DAILY JUNE Administration Desvenlafaxine Succinate 1 tab 10/27/24 13:00 10/28/24 09:21 Desvenlafaxine Succinate Er Tablet 25mg PO 11/26/24 12:59 1 tab QAM JUNE Administration Desvenlafaxine Succinate 1 tab 10/27/24 13:00 10/28/24 09:22 Desvenlafaxine Succinate Er Tablet 50mg PO 11/26/24 12:59 1 tab QAM JUNE Administration Pantoprazole Sodium 40 mg in 10 mls @ 5 mls/min 10/26/24 21:00 10/28/24 09:15 Protonix IV 11/25/24 20:59 5 mls/min BID JUNE Administration Lamotrigine 200 mg 10/26/24 21:00 10/27/24 20:42 Lamotrigine 100 Mg Tab PO 11/25/24 20:59 200 mg HS JUNE Administration Protocol NPO Date Last Intake of Fluids: 10/26/24 Time Last Intake of Fluids: 08:00 Date Last Intake of Solids: 10/26/24 Time Last Intake of Solids: 08:00 Past Medical History Medical History (Updated 10/28/24 @ 13:38 by Taiwo Henning MD) Acute blood loss anemia Acute GI bleeding Raynauds disease Bipolar I disorder, single manic episode Pityriasis rosea Seborrheic keratosis Degenerative disc disease Bipolar disorder Anxiety and depression History of hypertension Gastric ulcer due to nonsteroidal antiinflammatory drug (NSAID) therapy Past Family History Family History Uncle Brain cancer Father Colon cancer Mother Other cervical disc degeneration, cervicothoracic region Diabetes Gout Arthritis Uterine cancer Grandfather (Paternal) Gout Bipolar disorder Migraine Lung cancer Sister Migraine Denies family history of Ovarian cancer Prostate cancer Myocardial infarction Breast cancer Pancreatic adenocarcinoma Past Surgical History Surgical History S/P abdominoplasty 04/22/19 Dr. Elizabet Paul abdominoplasty History of cholecystectomy [place] teeth removed H/O elbow surgery LEFT ARM S/P biliopancreatic diversion with duodenal switch S/P gastric bypass Social History Smoking Status: Never smoker Do You Dip or Chew Tobacco: No Hx Alcohol Use: No Hx Substance Use: No substance use type: does not use Physical Exam Vital Signs Last Vital Signs Temp 37.2 C 10/28/24 11:01 Pulse 70 10/28/24 11:30 Resp 14 10/28/24 11:30 BP 127/71 10/28/24 11:30 Pulse Ox 100 10/28/24 11:30 O2 Del Method Room Air 10/27/24 21:00 Testing Laboratory Results 10/28/24 04:47 10/28/24 04:47 PT 11.4 Seconds (9.0-12.0) 10/26/24 11:59 INR 1.1 (0.9-1.1) 10/26/24 11:59 APTT 24 Seconds (21-31) 10/26/24 11:59 Blood Type A Positive 10/26/24 11:59 Antibody Screen NEGATIVE 10/26/24 11:59
--- NOTE | 2024-10-28 14:52 | GI REPORT ---
[facility] Patient: RAYNE HANDY : 1990 Sex at : Female Age: 34 Years Procedure: Colonoscopy Date: 10/28/2024 Attending Physician: Kasi Mathews MD Referring MD: Lazaro Hendrix M.d. Indications: - GI bleeding Medications: - Monitored Anesthesia Care Complications: - No immediate complications. Procedure: - Prior to the procedure, a History and Physical was performed, and patient medications, allergies and sensitivities were reviewed. The patient's tolerance of previous anesthesia was reviewed. - The risks and benefits of the procedure and the sedation options and risks were discussed with the patient. All questions were answered and informed consent was obtained. - ASA Grade Assessment: I - A normal, healthy patient. - Prior Anticoagulants: The patient has taken no anticoagulant or antiplatelet agents. - The adult colonoscope was introduced through the anus and advanced to the terminal ileum, with identification of the appendiceal orifice and ileocecal valve. - The appendiceal orifice and the ileocecal valve were photographed. - The colonoscopy was performed without difficulty. - The patient tolerated the procedure well. - The quality of the bowel preparation was adequate. Findings: - The perianal and digital rectal examinations were normal. - Black altered blood was found in the proximal ascending colon, cecum and distal ileum. - No other significant abnormalities were identified in a careful examination of the remainder of the colon. Impression: - Blood in the proximal ascending colon. - No specimens collected. Suspect small bowel source for blood loss. Recommendation: - Discharge patient to home. - Patient has a contact number available for emergencies. The signs and symptoms of potential delayed complications were discussed with the patient. Return to normal activities tomorrow. Written discharge instructions were provided to the patient. - Resume previous diet. Procedure Code(s): - 25875, Colonoscopy, flexible; diagnostic, including collection of specimen(s) by brushing or washing, when performed (separate procedure) Diagnosis Code(s): - K92.2, Gastrointestinal hemorrhage, unspecified CPT(R) - 202 copyright [employer]. All Rights Reserved. The CPT codes, CCI edits and ICD codes generated are intended as suggestions and were generated based on input data. These codes are preliminary and upon geographic information systems analyst review may be revised to meet current compliance and payer requirements. The provider is responsible for the final determination of appropriate codes, and modifiers. Kasi Mathews MD This document has been electronically signed. Note Initiated:10/28/2024 Note Completed:10/28/2024 2:52 PM [id number]
--- NOTE | 2024-10-28 14:57 | Anesthesiology Progress Note ---
Date of Service October 28, 2024 Anesthesia Post Procedure Vital Signs Vital Signs: Temp Pulse Pulse Resp BP BP Pulse Ox 10/28/24 14:44 36.9 C 80 18 99/72 L 100 10/28/24 13:33 36.9 C 67 16 143/79 H 100 10/28/24 11:30 70 14 127/71 100 10/28/24 11:01 37.2 C 64 14 114/64 99 10/28/24 10:31 37.3 C 76 12 119/59 L 100 10/28/24 10:05 37.2 C 64 14 125/63 100 10/28/24 09:35 37.3 C 70 17 122/71 100 10/28/24 09:20 37.2 C 83 12 128/75 100 10/28/24 09:00 37.4 C 76 14 129/61 100 10/28/24 08:00 82 14 10/28/24 06:03 71 4 L 10/28/24 05:11 75 19 10/28/24 05:00 78 15 99/49 L 100 10/28/24 04:11 94 H 29 H 98/56 L 99 10/28/24 03:05 87 13 104/52 L 100 10/28/24 02:02 37 C 76 13 106/50 L 99 10/28/24 01:00 76 17 99 10/28/24 00:03 79 15 109/59 L 10/28/24 00:00 74 10/27/24 23:00 88 15 100 10/27/24 22:00 91 H 20 100 10/27/24 21:00 36.9 C 84 13 100 10/27/24 20:00 37 C 89 18 115/69 100 10/27/24 19:00 37 C 82 14 100 10/27/24 18:12 80 17 10/27/24 17:03 78 15 10/27/24 16:06 89 17 10/27/24 15:52 37.0 C 88 17 128/76 100 10/27/24 15:46 128/76 10/27/24 15:46 128/76 10/27/24 15:46 128/76 10/27/24 15:46 128/76 10/27/24 15:46 128/76 10/27/24 15:46 128/76 10/27/24 15:46 128/76 10/27/24 15:46 128/76 10/27/24 15:46 128/76 10/27/24 15:46 128/76 10/27/24 15:46 128/76 10/27/24 15:46 128/76 10/27/24 15:46 128/76 10/27/24 15:46 128/76 10/27/24 15:46 128/76 10/27/24 15:46 128/76 10/27/24 15:46 128/76 10/27/24 15:46 128/76 10/27/24 15:46 128/76 10/27/24 15:46 128/76 10/27/24 15:46 128/76 10/27/24 15:46 128/76 10/27/24 15:46 128/76 10/27/24 15:46 128/76 10/27/24 15:46 128/76 10/27/24 15:46 128/76 10/27/24 15:42 85 19 10/27/24 15:40 83 10/27/24 15:00 89 14 O2 Del Method 10/28/24 14:44 Room Air 10/28/24 13:33 Room Air 10/28/24 11:30 10/28/24 11:01 10/28/24 10:31 10/28/24 10:05 10/28/24 09:35 10/28/24 09:20 10/28/24 09:00 10/28/24 08:00 10/28/24 06:03 10/28/24 05:11 10/28/24 05:00 10/28/24 04:11 10/28/24 03:05 10/28/24 02:02 10/28/24 01:00 10/28/24 00:03 10/28/24 00:00 10/27/24 23:00 10/27/24 22:00 10/27/24 21:00 Room Air 10/27/24 20:00 Room Air 10/27/24 19:00 Room Air 10/27/24 18:12 10/27/24 17:03 10/27/24 16:06 10/27/24 15:52 Room Air 10/27/24 15:46 10/27/24 15:46 10/27/24 15:46 10/27/24 15:46 10/27/24 15:46 10/27/24 15:46 10/27/24 15:46 10/27/24 15:46 10/27/24 15:46 10/27/24 15:46 10/27/24 15:46 10/27/24 15:46 10/27/24 15:46 10/27/24 15:46 10/27/24 15:46 10/27/24 15:46 10/27/24 15:46 10/27/24 15:46 10/27/24 15:46 10/27/24 15:46 10/27/24 15:46 10/27/24 15:46 10/27/24 15:46 10/27/24 15:46 10/27/24 15:46 10/27/24 15:46 10/27/24 15:42 10/27/24 15:40 10/27/24 15:00 Transfer of Care Handoff Completed per policy Notes Mental Status: alert / awake / arousable Patient Amnestic to Procedure: Yes Nausea / Vomiting: adequately controlled Pain: adequately controlled Airway Patency, RR, SpO2: stable & adequate BP & HR: stable & adequate Hydration State: stable & adequate Anesthetic Complications: no major complications apparent
[2024-10-28] MEDS: ICU ELECTROLYTE REPLACEMENT PROTOCOL SCH (15:17)
[2024-10-28] MEDS: LIDOCAINE 2% 2 ML VIAL/AMP(20MG/ML) INFIL ONE (15:17)
[2024-10-28] MEDS: fentaNYL citrate PF 100 MCG/2 ML VIAL ONE (15:18)
[2024-10-28] MEDS: PROPOFOL IV EMULSION 10 MG/ML 20 ML VIAL IV ONE ×3 (15:18)
[2024-10-28 17:31] LABS: Hematocrit (blood only) 26.9 % (37.0-47.0); Hemoglobin 9.2 g/dl (12.0-16.0)
--- NOTE | 2024-10-28 22:49 | Hospitalist Progress Note ---
Date of Service October 28, 2024 Assessment & Plan (1) Acute GI bleeding: Plan: Acute GI bleed with acute blood loss anemia, unknown etiology - Admit to ICU - now eating - CTAP w/o obvious source of bleed - Consult GI, Dr. Mathews, appreciate assistance _upper endoscopy was negative, -colonoscopy was negative. -will remain there until hemoglobin and BP stabilizes -continue Pantoprazole IV BID Patient now has received 4 units of PRBC. will recheck hemoglobin this afternoon. discussed with loan workout officer will downgrade. (2) Acute blood loss anemia: Plan: Acute d/t GI bleed - Hgb on presentation 7.5, received 1.5L NSS - hemoglbin at 8.7, will continue to monitor. replenish as needed with PRBC. currently received 4 units, (3) Syncope and collapse: Plan: Acute - Suspect related to profound anemia and hypovolemia - Bedrest - CTH and neck were WNL - D/c c-collar - ICU - Presyncopal again in ER with bp of 81/44, ordered another 500 cc bolus of NSS - Continue mIVF w/ NSS @ 100 ml/hr Plan Chronic medical problems: Bipolar disorder/Borderline personality disorder/depression/anxiety - continue abilify, desvenlafaxine, lamictal, lorazepam, temazepam, and trazodone Chemoppx for VTE prevention is contraindicated in setting of GI bleed with ABLA. SCDs to b/l LE. AM labs have been ordered. Updated Narciso via phone. Above plan of care has been d/w Dr. Hendrix. Further orders to be implemented as clinically warranted. Admission and Anticipated Discharge Date Admission Date: October 26, 2024 Subjective 34 yo female reports no new symptoms. Physical Exam Physical Exam: GENERAL: 34 yo well-nourished WF. No distress. Pale EYES: EOMI. PERRLA. Anicteric. HENT: Moist mucous membranes. No cervical lymphadenopathy. LUNGS: Clear to auscultation bilaterally. No accessory muscle use. No W/R/R. CARDIOVASCULAR: Regular rate and rhythm. No M/G/R. No JVD. ABDOMEN: Soft, non-tender and non-distended. No palpable masses. Bowel sounds normoactive x 4 quad. Results & Data Results & Data Vital Signs (Past 12 Hours) Vital Signs Temp Pulse Pulse Resp BP BP Pulse Ox 10/28/24 20:05 37.4 C 71 20 116/72 98 10/28/24 19:00 67 10/28/24 16:30 79 15 10/28/24 16:18 60 14 10/28/24 15:24 65 10/28/24 15:22 36.6 C 70 15 130/81 100 10/28/24 15:14 67 18 134/84 100 10/28/24 14:59 74 18 138/85 99 10/28/24 14:44 36.9 C 80 18 99/72 L 100 10/28/24 13:33 36.9 C 67 16 143/79 H 100 10/28/24 11:30 70 14 127/71 100 10/28/24 11:01 37.2 C 64 14 114/64 99 O2 Del Method 10/28/24 20:05 Room Air 10/28/24 19:00 10/28/24 16:30 10/28/24 16:18 10/28/24 15:24 10/28/24 15:22 Room Air 10/28/24 15:14 Room Air 10/28/24 14:59 Room Air 10/28/24 14:44 Room Air 10/28/24 13:33 Room Air 10/28/24 11:30 10/28/24 11:01 PG Care Time/CCT Total # of Minutes Spent Total Time Spent with Patient: Total time spent is greater than 50% in coordination of care (as documented) at patient's floor/unit and/or counseling patient: Coding Level of Care Code 01829 SUB INP/OBS CARE 3/50MIN Diagnoses Acute GI bleeding K92.2 Acute blood loss anemia D62 Syncope and collapse R55
[2024-10-29 05:30] LABS: Hematocrit (blood only) 23.9 % (37.0-47.0); Hemoglobin 8.1 g/dl (12.0-16.0); Mean Corpuscular Hemoglobin 28.3 pg (25.0-34.0); Mean Corpuscular Hgb Conc 33.9 g/dL (32.0-36.0); Mean Corpuscular Volume 83.6 fL (80.0-100.0); Mean Platelet Volume 10.3 fL (9.4-12.4); Platelet Count 141 K/uL (130-400); RDW Coefficient of Variation 14.8 % (11.5-14.5); RDW Standard Deviation 44.4 fL (36.4-46.3); Red Blood Count 2.86 M/uL (4.20-5.40); White Blood Count 4.74 K/ul (4.8-10.8)
[2024-10-29 05:50] LABS: BUN Creatinine Ratio 11.1 (10-20); Calcium 7.9 mg/dl (8.6-10.3); Creatinine Clr Calc Pharmacy 158.2 ml/min; Magnesium 1.7 mg/dl (1.7-2.4); Phosphorus 3.7 mg/dl (2.5-4.9); Potassium 3.7 mmol/L (3.5-5.1)
[2024-10-29 07:14] VITALS: O2SAT 100
--- NOTE | 2024-10-29 10:39 | Gastroenterology Progress Note ---
Date of Service October 29, 2024 Assessment & Plan (1) Acute blood loss anemia: Plan: Case discussed with Dr. Mathews. Will plan to check repeat hgb/hct later this afternoon. If her counts are dropping or she shows signs of ongoing bleeding, would recommend transfer to center that can do inpatient capsule endoscopy. will continue to monitor. Admission and Anticipated Discharge Date Admission Date: October 26, 2024 Supervising Physician Co-Signing Physician Notes I saw and examined this patient with our nurse practitioner and agree with her assessment and plan. Hemoglobin 9.5. No overt bleeding. Endoscopy and colonoscopy unrevealing. Suspect small bowel source of bleeding. Differential diagnosis includes small bowel mass, anastomotic ulceration less likely vascular ectasias. Okay for discharge today. Patient instructed to contact us if she has recurrent bleeding. Plan to obtain an MR enterography as an outpatient as well as a capsule endoscopy. To get a repeat hemoglobin hematocrit later this week. Subjective Patient has not noticed further bleeding. no bowel movements since procedure yesterday. hgb dropped from 9.2 to 8.1. feeling well otherwise. colonoscopy yesterday shown blood in the proximal ascending colon and it was felt that bleeding is likely in the small bowel. Review of Systems Review of Systems: All systems reviewed & are unremarkable except as noted in HPI & below Physical Exam Constitutional: WD/WN, vitals as above Respiratory: normal respiratory effort, lungs clear to auscultation Cardiovascular: Rate/Rhythm: regular rate and regular rhythm Gastrointestinal (Abdomen): normal bowel sounds, soft, nontender, no hepatosplenomegaly Psychiatric: Orientation: alert and oriented x 3 Affect: euthymic affect Results & Data Results & Data Vital Signs (Past 12 Hours) Vital Signs Temp Pulse Pulse Resp BP BP Pulse Ox 10/29/24 08:00 88 10/29/24 07:13 98.8 F 90 18 144/81 H 100 10/29/24 04:00 78 14 115/65 98 10/29/24 00:09 98.6 F 67 15 116/77 99 10/29/24 00:00 69 O2 Del Method 10/29/24 08:00 10/29/24 07:13 Room Air 10/29/24 04:00 Room Air 10/29/24 00:09 Room Air 10/29/24 00:00 Laboratory Results Laboratory Results - last 48 hr 10/26/24 10/28/24 10/28/24 11:59 04:47 17:04 WBC 5.26 RBC 2.52 L Hgb 7.1 L 9.2 L Hct 21.0 L 26.9 L MCV 83.3 MCH 28.2 MCHC 33.8 RDW Std Deviation 45.3 RDW Coeff of Edi 15.2 H Plt Count 124 L MPV 10.1 Immature Gran % (Auto) 0.4 Neut % (Auto) 55.6 Lymph % (Auto) 35.0 Porter % (Auto) 8.6 Eos % (Auto) 0.2 Baso % (Auto) 0.2 Neut # (Auto) 2.93 Lymph # (Auto) 1.84 Porter # (Auto) 0.45 Eos # (Auto) 0.01 Baso # (Auto) 0.01 Immature Gran # (Auto) 0.02 Polychromasia 1+ Sodium 142 Potassium 3.5 Chloride 113 H Carbon Dioxide 25 Anion Gap 4 BUN 8 Creatinine 0.61 Est Cr Clr Drug Dosing 140.3 eGFR 118.75 BUN/Creatinine Ratio 13.1 Glucose 94 Calcium 7.4 L Phosphorus 2.5 Magnesium 1.5 L Blood Type A Positive Antibody Screen NEGATIVE Crossmatch See Detail 10/29/24 10/29/24 04:51 12:04 WBC 4.74 L RBC 2.86 L Hgb 8.1 L 9.5 L Hct 23.9 L 27.6 L MCV 83.6 MCH 28.3 MCHC 33.9 RDW Std Deviation 44.4 RDW Coeff of Edi 14.8 H Plt Count 141 MPV 10.3 Immature Gran % (Auto) Neut % (Auto) Lymph % (Auto) Porter % (Auto) Eos % (Auto) Baso % (Auto) Neut # (Auto) Lymph # (Auto) Porter # (Auto) Eos # (Auto) Baso # (Auto) Immature Gran # (Auto) Polychromasia Sodium 142 Potassium 3.7 Chloride 110 H Carbon Dioxide 27 Anion Gap 5 BUN 6 Creatinine 0.54 L Est Cr Clr Drug Dosing 158.2 eGFR 122.29 BUN/Creatinine Ratio 11.1 Glucose 84 Calcium 7.9 L Phosphorus 3.7 D Magnesium 1.7 Blood Type Antibody Screen Crossmatch Coding Level of Care Code 57029 SUB INP/OBS CARE 2/35MIN Diagnoses Acute blood loss anemia D62
[2024-10-29 11:41] VITALS: BP 111/69; RESP 20; TEMP 99
[2024-10-29 13:09] LABS: Hematocrit (blood only) 27.6 % (37.0-47.0); Hemoglobin 9.5 g/dl (12.0-16.0)
[2024-10-29] MEDS: IRON SUCROSE 200 MG in SODIUM CHLORIDE 0.9% 100 ML IV ONE (14:25)
--- NOTE | 2024-10-29 14:49 | Discharge Summary ---
Discharge Summary Date of Service October 29, 2024 Principal Dx & Hospital Course #1 = Principal Diagnosis (1) Acute GI bleeding: Acute GI bleed with acute blood loss anemia, unknown etiology - Admit to ICU - now eating - CTAP w/o obvious source of bleed - Consult GI, Dr. Mathews, appreciate assistance _upper endoscopy was negative, -colonoscopy was negative. -will remain there until hemoglobin and BP stabilizes -continue Pantoprazole IV BID Patient now has received 4 units of PRBC. will recheck hemoglobin this afternoon. discussed with global process owner will downgrade. (2) Acute blood loss anemia: Acute d/t GI bleed - Hgb on presentation 7.5, received 1.5L NSS - hemoglbin at 8.7, will continue to monitor. replenish as needed with PRBC. currently received 4 units, (3) Syncope and collapse: Acute - Suspect related to profound anemia and hypovolemia - Bedrest - CTH and neck were WNL - D/c c-collar - ICU - Presyncopal again in ER with bp of 81/44, ordered another 500 cc bolus of NSS - Continue mIVF w/ NSS @ 100 ml/hr Plan Chronic medical problems: Bipolar disorder/Borderline personality disorder/depression/anxiety - continue abilify, desvenlafaxine, lamictal, lorazepam, temazepam, and trazodone Chemoppx for VTE prevention is contraindicated in setting of GI bleed with ABLA. SCDs to b/l LE. AM labs have been ordered. Updated Narciso via phone. Above plan of care has been d/w Dr. Hendrix. Further orders to be implemented as clinically warranted. Admission HPI Per Admitting Provider Carlos Alberto is a 34 yo F with a pmhx of bipolar d/o, borderline personality disorder, depression and previous obesity s/p biliopancreatic diversion w/ duodenal switch procedure who presented to the ER today for evaluation of possible GI bleeding. She reportedly came in due to concern for rectal bleeding. She denied abd pain, nausea or vomiting. Her history though is presently limited initially when I went into the room she stated "hello person," followed by, "what the fuck just happened?" Report provided by the emergency department noted that she had a brief syncopal event when she went into the restroom to void. Her w/u in the ER demonstrated a significant anemia with a hgb of 7.5, initially en route to the ER she was mildly hypotensive but BP upon arrival was 93/77. She received 1L of NSS. Her HR and BP since have been stable >100 systolic and HR in the 80-90s. She was assisted back into bed by staff, placed a c-collar and ER physician has ordered a CT of her head and neck. She also underwent CTAP which was negative for any significant pathology which would account for her blood loss. She previously told the ER physician that typically takes NSAIDs about three times a day for arthritis. Following the syncopal episode, she was able to answer questions appropriately but couldn't recall the last event before she passed out. She was medicated in the ER with a bolus of Protonix 80mg IV x1 and then placed on a gtt, she has also received a dose of Pepcid 20mg IV x1. Case was d/w Dr. Mathews from who recommended NPO and admission. She has been referred to [facility] medicine team for admission. Discharge Exam GENERAL: 34 yo well-nourished WF. No distress. Pale EYES: EOMI. PERRLA. Anicteric. HENT: Moist mucous membranes. No cervical lymphadenopathy. LUNGS: Clear to auscultation bilaterally. No accessory muscle use. No W/R/R. CARDIOVASCULAR: Regular rate and rhythm. No M/G/R. No JVD. ABDOMEN: Soft, non-tender and non-distended. No palpable masses. Bowel sounds normoactive x 4 quad. Discharge Plan Discharge Items Reason For Visit: GI BLEED, SYNCOPE Discharge Diagnosis: GI bleed Activity: Resume your previous activity Non-emergency contact: Primary Care Provider Call non-emergency contact if: you have any medication questions Follow-up/Referrals: Marifer Morrison MD [Primary Care Provider] - Diet: Full liquid Ambulatory Orders: Hemoglobin (Routine) Timeframe: 20241030 Location: Determined by Patient Ordered By: Lazaro Acosta Attending Provider Instructions: Recommend rechecking hemoglobin tomorrow. Recommend followup with PCP in 1 week. Recommend your PCP recheck your hemoglobin next week. No NSAIDs like ibuprofen (advil,motrin), naprosyn (aleve). Only pain medicine allowed over the counter is acetaminophen (Tylenol). Please return to the hospital if you feel lightheaded or if your dark stools re turn. Will continue with a liquid diet: this can include soups for next 3 days. Then advance to a soft bite sized diet. Pending Studies at Discharge: No Stand-Alone Forms: [facility], Work/School Release, Smoking Cessation Medications and DC Order Prescriptions: Continued Mirena 20 mcg/24 hours (5 yrs) 52 mg intrauterine device 1 device IU CONTINOUS Patient Comments: Placed: 10/18/2018 LOT: [id number] aripiprazole [Abilify] 2 mg tablet 2 mg PO DAILY lamotrigine 100 mg tablet 200 mg PO HS lorazepam 0.5 mg tablet 0.25 - 0.5 mg PO BID PRN (Reason: Anxiety/Nightmares) trazodone 50 mg tablet 50 mg PO HS PRN (Reason: Sleep) temazepam 22.5 mg capsule 22.5 mg PO HS PRN (Reason: Sleep) desvenlafaxine succinate 50 mg tablet extended release 24 hr 50 mg PO QAM Rx Instructions: Take w/ 25mg to equal 75mg once every morning desvenlafaxine succinate 25 mg tablet extended release 24 hr 25 mg PO QAM Rx Instructions: Take w/ 25mg to equal 75mg once every morning Admission Data Admit Date/Time: 10/26/24 14:56 Attending Provider: Lazaro Hendrix Admit Provider: Lazaro Hendrix Primary Care Provider: Marifer Morrison Other Providers: Lazaro Hendrix; Danielito Carter; Kasi Mathews I Other Interventions: Discharge Summary Assessment (RN) Last Done: 10/28/24 15:16 Hospital Stay Data Consultations 10/26/24 14:59 ED Decision to Admit Stat 10/26/24 17:21 Consult Professor Of Food Biochemistry Routine 10/26/24 19:55 Consult Gastroenterology Routine Procedures Performed Operation Date: 10/28/24 16:30 Actual Procedures p Colonoscopy - Kasi Mathews MD Diagnostic Imagining Performed 10/26/24 11:57 CT abd pelvis IV con only Stat 10/26/24 14:17 CT cervical spine wo con Stat CT head/brain wo con Stat Pending Results Patient Have Any Pending Studies at Discharge: No Discharge Instructions Given to Patient (Per Discharging Provider) Recommend rechecking hemoglobin tomorrow. Recommend followup with PCP in 1 week. Recommend your PCP recheck your hemoglobin next week. No NSAIDs like ibuprofen (advil,motrin), naprosyn (aleve). Only pain medicine allowed over the counter is acetaminophen (Tylenol). Please return to the hospital if you feel lightheaded or if your dark stools return. Will continue with a liquid diet: this can include soups for next 3 days. Then advance to a soft bite sized diet. Coding Diagnoses Acute GI bleeding K92.2 Acute blood loss anemia D62 Syncope and collapse R55
[2024-10-29 15:37] VITALS: PULSE 78
== END 2024-10-29 15:40 | disposition home or self-care (01) | DRG 378 ==
LOC: SUATTDRO → ED 11:29 → 1E 14:56 → 2S 18:25